=== PATIENT | female | born 1980 | race Caucasian/White ===

== ENCOUNTER → 2016-04-06 | Outpatient (CLI) | payer BC, OTHER ==
--- NOTE | 2016-04-07 01:33 | REP ---
Clinical: thoracic pain. Spondylosis. Technique: AP, lateral, and swimmers views. Findings: Alignment and kyphosis is maintained. Vertebral bodies intact. No acute fracture / compression injury or subluxation. Mild age-related changes are appreciated without overt degenerative changes. Paravertebral soft tissues are normal. Impression: Normal age appropriate thoracic spine series. Signed by Trey Benitez MD 04/07/2016 01:24 A
--- NOTE | 2016-04-07 02:22 | REP ---
Clinical: Spondylosis . Technique: AP, lateral, flexion/extension, bilateral oblique, and open-mouth views. Findings: Alignment and lordosis is maintained. There is no evidence for acute fracture / compression injury or subluxation. No significant degenerative changes are appreciated. Oblique views demonstrate patent neural foramen. Open mouth view demonstrates normal C1-C2 articulation and odontoid process. Impression: Normal cervical spine series. Signed by Trey Benitez MD 04/07/2016 02:13 A
--- NOTE | 2016-04-07 02:27 | REP ---
Clinical: Spondylosis . Technique: AP, lateral, bilateral oblique, and coned-down views. Findings: Alignment and lordosis is maintained. The vertebral bodies including transverse process and spinous processes are intact and normal. There is no evidence for acute fracture / compression injury or subluxation. No evidence for spondylolysis or spondylolisthesis. No significant degenerative change is noted. Impression: Normal lumbosacral spine radiograph series. Signed by Trey Benitez MD 04/07/2016 02:19 A
== END ==
LOC: M RAD 17:36
PROVIDERS: ATTEND Neurological Surgery
DX: M47.894 Other spondylosis, thoracic region (principal)

== ENCOUNTER → 2016-10-16 | Outpatient (CLI) | payer BC, OTHER | LOC: M WUC 17:35 | PROVIDERS: ATTEND Psychiatry & Neurology Neurology | DX: E53.8 Deficiency of other specified B group vitamins (principal) ==

== ENCOUNTER → 2017-07-13 | Outpatient (REF) | payer BC, OTHER ==
[2017-07-13 18:30] LABS: BASO # 0.1 10^3/uL (0.0-0.2); BASO % 0.7 % (0.0-1.0); EOS # 0.1 10^3/uL (0.0-0.50); HEMOGLOBIN 15.1 g/dl (12.0-15.5); IMMATURE GRANULOCYTE % 0.4 % (0-3.0); LYMPH # 2.4 10^3/uL (1.5-4.5); LYMPH % 34.3 % (24.0-44.0); MEAN CORPUSCULAR HEMOGLOBIN 31.9 pg (27.0-33.0); MEAN CORPUSCULAR HGB CONC 35.1 g/dl (32.0-36.5); MEAN CORPUSCULAR VOLUME 90.9 fl (80.0-96.0); MONO # 0.5 10^3/uL (0.0-0.8); MONO % 7.3 % (0.0-5.0); NEUTROPHILS # 3.9 10^3/uL (1.8-7.7); NEUTROPHILS % 55.3 % (36.0-66.0); PLATELET COUNT, AUTOMATED 304 10^3/uL (150-450); RED BLOOD COUNT 4.73 10^6/uL (4.00-5.40); RED CELL DISTRIBUTION WIDTH 11.9 % (11.5-14.5)
[2017-07-13 18:56] LABS: FERRITIN 80 NG/ML (8-252); IRON (FE) 92 UG/DL (50-170); TOTAL IRON BINDING CAPACITY 297 UG/DL (250-450)
== END ==
LOC: M LABNEURO 15:38
DX: D50.9 Iron deficiency anemia, unspecified (principal)
CPT/HCPCS: 83550

== ENCOUNTER → 2017-08-17 | Outpatient (CLI) | payer OTHER, BC ==
[2017-08-17 12:41] LABS: C REACTIVE PROTEIN QUANTITATIV < 0.30 MG/DL (0.00-0.30)
[2017-08-17 12:41] LABS: RHEUMATOID FACTOR QUANT < 10.0 IU/ML (<15.0)
[2017-08-17 12:57] LABS: BASO # 0.1 10^3/uL (0.0-0.2); EOS # 0.1 10^3/uL (0.0-0.50); EOS % 1.3 % (0.0-3.0); HEMATOCRIT 39.4 % (36.0-47.0); HEMOGLOBIN 14.2 g/dl (12.0-15.5); IMMATURE GRANULOCYTE % 0.7 % (0-3.0); LYMPH # 1.8 10^3/uL (1.5-4.5); LYMPH % 25.3 % (24.0-44.0); MEAN CORPUSCULAR HEMOGLOBIN 32.7 pg (27.0-33.0); MEAN CORPUSCULAR VOLUME 90.8 fl (80.0-96.0); MONO # 0.6 10^3/uL (0.0-0.8); MONO % 8.3 % (0.0-5.0); NEUTROPHILS # 4.5 10^3/uL (1.8-7.7); NEUTROPHILS % 63.4 % (36.0-66.0); PLATELET COUNT, AUTOMATED 275 10^3/uL (150-450); RED BLOOD COUNT 4.34 10^6/uL (4.00-5.40); RED CELL DISTRIBUTION WIDTH 11.9 % (11.5-14.5); WHITE BLOOD COUNT 7.1 10^3/uL (4.0-10.0)
[2017-08-17 13:33] LABS: ERYTHROCYTE SEDIMENTATION RATE 12 mm/hr (0-20)
[2017-08-19 00:07] LABS: ANTINUCLEAR ANTIBODIES DIRECT Negative (Negative); Lyme Disease IgG/IgM Antibodie <0.91 ISR (0.00-0.90); Lyme Disease IgM Ab Quantitati <0.80 index (0.00-0.79)
== END ==
LOC: M WUC 09:32
DX: G56.21 Lesion of ulnar nerve, right upper limb (principal)

== ENCOUNTER → 2017-11-19 | Outpatient (CLI) | payer OTHER | LOC: M PAIN 09:30 | DX: M50.20 Other cervical disc displacement, unspecified cervical region (principal); G89.29 Other chronic pain; E03.9 Hypothyroidism, unspecified; G25.81 Restless legs syndrome; K50.90 Crohn's disease, unspecified, without complications; E66.01 Morbid (severe) obesity due to excess calories; Z68.41 Body mass index [BMI] 40.0-44.9, adult; Z79.899 Other long term (current) drug therapy; Z88.8 Allergy status to other drugs, medicaments and biological substances | CPT/HCPCS: G0463 ==

== ENCOUNTER → 2017-12-31 | Outpatient (CLI) | payer BC, OTHER | LOC: M PAIN 08:30 | DX: M50.20 Other cervical disc displacement, unspecified cervical region (principal); E03.9 Hypothyroidism, unspecified; G25.81 Restless legs syndrome; K50.90 Crohn's disease, unspecified, without complications; Z79.899 Other long term (current) drug therapy; Z88.8 Allergy status to other drugs, medicaments and biological substances | CPT/HCPCS: G0463 ==

== ENCOUNTER → 2018-11-29 | Outpatient (CLI) | payer OTHER, BC ==
[2018-11-29 13:31] LABS: FOLATE 18.8 NG/ML
== END ==
LOC: M WUC 11:26
PROVIDERS: ATTEND Psychiatry & Neurology Neurology
DX: E53.8 Deficiency of other specified B group vitamins (principal)

== ENCOUNTER 2018-12-31 11:45 | Emergency (ER) | payer BC, OTHER ==
[~2018-12-31] VITALS: Ht 154.9 cm; Wt 75.9 kg
[2018-12-31] MEDS ORDERED: B-12100021 PO (12:14)
[2018-12-31] MEDS ORDERED: ALL10TAB29 PO (12:14)
[2018-12-31] MEDS ORDERED: NORA0.35 PO (12:14)
[2018-12-31] MEDS ORDERED: LEVO25TA5 PO (12:14)
[2018-12-31] MEDS ORDERED: PROBCAP14 PO (12:14)
[2018-12-31] MEDS ORDERED: CHOL100029 PO (12:14)
[2018-12-31] MEDS ORDERED: GABA-1171 PO (12:14)
[2018-12-31 12:47] LABS: BASO # 0.1 10^3/uL (0.0-0.2); BASO % 0.8 % (0.0-1.0); EOS # 0.1 10^3/uL (0.0-0.5); EOS % 2.2 % (0.0-3.0); HEMATOCRIT 42.7 % (36.0-47.0); HEMOGLOBIN 14.8 g/dl (12.0-15.5); LYMPH # 2.2 10^3/uL (1.5-5.0); LYMPH % 33.7 % (24.0-44.0); MEAN CORPUSCULAR HEMOGLOBIN 32.2 pg (27.0-33.0); MEAN CORPUSCULAR HGB CONC 34.7 g/dl (32.0-36.5); MEAN CORPUSCULAR VOLUME 92.8 fl (80.0-96.0); MONO # 0.5 10^3/uL (0.0-0.8); MONO % 7.3 % (0.0-5.0); NEUTROPHILS # 3.6 10^3/uL (1.5-8.5); NEUTROPHILS % 55.7 % (36.0-66.0); PLATELET COUNT, AUTOMATED 272 10^3/uL (150-450); WHITE BLOOD COUNT 6.5 10^3/uL (4.0-10.0)
[2018-12-31 13:07] LABS: BLOOD UREA NITROGEN 10 MG/DL (7-18); CALCIUM LEVEL 8.9 MG/DL (8.5-10.1); CARBON DIOXIDE LEVEL 28 MEQ/L (21-32); CHLORIDE LEVEL 108 MEQ/L (98-107); GLOMERULAR FILTRATION RATE > 60.0 (>60); GLUCOSE, FASTING 88 MG/DL (70-100); POTASSIUM SERUM 4.6 MEQ/L (3.5-5.1); SODIUM LEVEL 141 MEQ/L (136-145)
--- NOTE | 2018-12-31 13:10 | REP ---
CHEST: Two views. There is no evidence of acute infiltrate. No pleural effusion is seen. The heart is normal in size. The mediastinal silhouette is unremarkable. The visualized osseous structures are intact. IMPRESSION: No acute pulmonary disease. Electronically Signed by Mayco Hill MD 12/31/2018 05:16 P
[2018-12-31] MEDS ORDERED: KETOROLAC 60 MG/2 ML VIAL (J1885) IM ONE (13:30)
[2018-12-31] MEDS ORDERED: NAPR-885 PO (13:53)
[2018-12-31 14:01] VITALS: BP 133/60
== END 2018-12-31 14:03 | disposition home or self-care (01) ==
LOC: M ED 11:45
DX: R07.89 Other chest pain (principal); Z79.899 Other long term (current) drug therapy; Z79.3 Long term (current) use of hormonal contraceptives
CPT/HCPCS: 36415; 71046; 80048; 85025; 85379; 96372; 99284; J1885

== ENCOUNTER → 2020-11-18 | Outpatient (CLI) | payer BC, OTHER ==
[~2020-11-18] MED LIST: B-12100021 PO; CETI-24 PO; CHOL100029 PO; GABA-1171 PO; GLUCAGON INJ 1MG VIAL As Ordered ONE; ISOVUE-370 76% 100ML VIAL As Ordered ONE; LEVO25TA5 PO; NAPR-885 PO; NEULUMEX 0.1% SUSPENSION 450ML BOTTLE (FORMERLY VOLUMEN) As Ordered ONE; NORA0.35 PO; PROBCAP14 PO
--- NOTE | 2020-11-18 10:21 | REP ---
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 Low-dose oral contrast material was administered prior to imaging. Coronal and sagittal reformations were obtained. This CT examination was performed using the following dose reduction techniques: Automated exposure control, adjustment of mA and/or kv according to the patient's size, and use of iterative reconstruction technique. FINDINGS: The enteric system including gastroesophageal junction, stomach, small and large bowel appears normal. The terminal ileum, cecum and appendix in the right lower quadrant are unremarkable. No bowel wall thickening or adjacent fat stranding is appreciated. There is no evidence for diverticulosis. No obvious bowel stricture or mass lesion identified. Liver, spleen, pancreas, gallbladder, bilateral adrenal glands and kidneys are normal. Pelvis demonstrates normal bladder and age-appropriate uterus/adnexa. No ascites. No adenopathy. No free air. Atherosclerotic changes to the aorta and vasculature noted. Musculoskeletal structures demonstrate age-related changes without acute osseous abnormality. Lung bases are clear. IMPRESSION: 1. Normal appearance to the enteric system. 2. No acute abdominopelvic pathology appreciated. <Electronically signed by Trey Benitez > 11/18/20 [id number]
== END ==
LOC: M RAD 08:27
PROVIDERS: ATTEND Internal Medicine Gastroenterology
DX: K50.00 Crohn's disease of small intestine without complications (principal)
CPT/HCPCS: 74177; J1610; Q9967

== ENCOUNTER 2020-12-25 16:39 | Emergency (ER) | payer OTHER, BC ==
[~2020-12-25] VITALS: Ht 152.4 cm; Wt 80.8 kg
[~2020-12-25 16:39] MED LIST changes: -GLUCAGON INJ 1MG VIAL As Ordered ONE; -ISOVUE-370 76% 100ML VIAL As Ordered ONE; -NEULUMEX 0.1% SUSPENSION 450ML BOTTLE (FORMERLY VOLUMEN) As Ordered ONE
[2020-12-25 16:40] VITALS: BP 141/86
--- OUTSIDE RECORDS SUMMARY | 2020-12-25 16:45 | CCD | Continuity of Care Document ---
Author Author Delaney TOMAS Organization Unknown Address [address] [place] [address], it [address] [address] Phone [phone] Care Team Providers Care Box Closing Machine Operator Name Role Phone Fili Jerome MD AUTM [phone] Tavon Fry MD AUTM [phone] Problems Active Problems Provider Date Pain radiating to right arm Tavon Fry MD Onset: Social History Type Date Description Comments Sex Unknown ETOH Use Rarely consumes alcohol Tobacco Use Start: Unknown Denies Smoking Allergies, Adverse Reactions, Alerts Active Allergies Reaction Severity Comments Date Methocarbamol 01/12/2017 Medications Active Medications SIG Qnty Indications Ordering Provide r Date Keke-Be 0.35mg Tablets 1 by mouth every day Unknown Vitamin B 12 100mcg Lozenges Unknown Vitamin D 2000Unit Capsules 1 by mouth a day Unknown Probiotic Capsules 1 by mouth every day Unknown Levothyroxine Sodium 75mcg Tablets 1 by mouth every day Unknown Cetirizine HCL 5mg Chewtabs Unknown Immunizations Description No Information Available Vital Signs Date Vital Result Comment 06/05/2020 4:28pm Body Temperature 97.5 F Height 61 inches 5'1" Weight 178.00 lb BMI (Body Mass Index) 33.6 kg/m2 08/17/2017 8:41am Body Temperature 98.6 F Height 62 inches 5'2" Weight 166.00 lb BMI (Body Mass Index) 30.4 kg/m2 Results Description No Information Available Procedures Date Code Description Status 09/24/2020 99350 MRI Upper Extremity Any Joint Co mpleted 09/18/2020 35454 Office/Outpatient Established Lo w MDM 20-29 Min Completed 08/07/2020 25896 Office/Outpatient Established SF MDM 10-19 Min Completed 06/21/2020 63869 Physical Therapy Eval - Low Comp lexity Completed 06/05/2020 37212 Office/Outpatient Established Mo d MDM 30-39 Min Completed 06/05/2020 72860 X-Ray Hand Three Views Completed 06/05/2020 54653 X-Ray Wrist Complete Completed Medical Devices Description No Information Available Encounters Type Date Location Provider Dx Diagnosis Office Visit 09/18/2020 1:30p [facility] Rodriguez Pitts MD M25.53 1 Pain in right wrist Office Visit 08/07/2020 10:00a [facility] MD M19.03 1 Primary osteoarthritis, right wrist Office Visit 06/05/2020 4:15p [facility] Rodriguez Pitts MD M19.03 1 Primary osteoarthritis, right wrist Assessments Date Code Description Provider 09/24/2020 M25.531 Pain in right wrist Rodriguez trammell MD 09/24/2020 M25.531 Pain in right wrist MRI 09/18/2020 M25.531 Pain in right wrist Rodriguez trammell MD 08/07/2020 M19.031 Primary osteoarthritis, right wr ist Rodriguez Pitts MD 06/21/2020 M19.031 Primary osteoarthritis, right wr ist Reji King PT, DPT 06/06/2020 M19.031 Primary osteoarthritis, right wr ist Rodriguez Pitts MD 06/05/2020 M19.031 Primary osteoarthritis, right wr ist Rodriguez Pitts MD Plan of Treatment Future Appointment(s):* 10/14/2020 3:15 pm - Thaddeus Swenson PA-C at [facility] 09/18/2020 - Rodriguez Pitts MD* M25.531 Pain in right wrist Functional Status Description No Information Available Mental Status Description No Information Available Referrals Refer to Dr Reason for Referral Status Appt Rodriguez Pitts MD MRI APPROVED PER [facility] FOR MRI OF RIGHT WRIST (66931) TO MRI. DG Created [address], [address] [place] [address] [phone] Rodriguez Pitts MD PT BASED ON MED. [facility] TO PT DEPT. KATIA bowling [address], [facility] [address] [place] [address] [phone]
--- OUTSIDE RECORDS SUMMARY | 2020-12-25 16:45 | CCD | Continuity of Care Document ---
Author Author Delaney SWENSON PA-Hardy Organization Unknown Address [address] [place] [address] Phone [phone] Care Team Providers Care Security Developer Name Role Phone Fili Jerome MD AUTM [phone] Tavon Fry MD AUTM [phone] Problems Active Problems Provider Date Pain radiating to right arm Tavon Fry MD Onset: Social History Type Date Description Comments Sex Unknown ETOH Use Rarely consumes alcohol Tobacco Use Start: Unknown Denies Smoking Allergies, Adverse Reactions, Alerts Active Allergies Criticality Reaction | Severity Comments Date Methocarbamol Unable to assess criticality 01/12/2017 Medications Active Medications SIG Qnty Indications [...] Information Available Procedures Date Code Description Status 10/14/2020 09499 Office/Outpatient Established Lo w MDM 20-29 Min Completed 09/24/2020 44896 MRI Upper Extremity Any Joint Co mpleted 09/18/2020 24560 Office/Outpatient Established Lo w MDM 20-29 Min Completed 08/07/2020 11602 Office/Outpatient Established SF MDM 10-19 Min Completed 06/21/2020 65106 Physical Therapy Eval - Low Comp lexity Completed 06/05/2020 83408 Office/Outpatient Established Mo d MDM 30-39 Min Completed 06/05/2020 43855 X-Ray Hand Three Views Completed 06/05/2020 98002 X-Ray Wrist Complete Completed Medical Devices Description No Information Available Encounters Type Date Location Provider Dx Diagnosis Office Visit 10/14/2020 3:15p Zacarias Swenson PA-C M2 5.531 Pain in right wrist Office Visit 09/18/2020 1:30p Zacarias Pitts MD M25.53 1 Pain in right wrist Office Visit 08/07/2020 10:00a Zacarias Pitts MD M19.03 1 Primary osteoarthritis, right wrist Office Visit 06/05/2020 4:15p Zacarias Pitts MD M19.03 1 Primary osteoarthritis, right wrist Assessments Date Code Description Provider 10/14/2020 M25.531 Pain in right wrist Thaddeus aguilar PA-C 09/24/2020 M25.531 Pain in right wrist Rodriguez trammell MD 09/24/2020 M25.531 Pain in right wrist MRI 09/18/2020 M25.531 Pain in right wrist Rodriguez trammell MD 08/07/2020 M19.031 Primary osteoarthritis, right wr ist Rodriguez Pitts MD 06/21/2020 M19.031 Primary osteoarthritis, right wr ist Reji King, PT, DPT 06/06/2020 M19.031 Primary osteoarthritis, right wr ist Rodriguez Pitts MD 06/05/2020 M19.031 Primary osteoarthritis, right wr ist Rodriguez Pitts MD Plan of Treatment 10/14/2020 - Thaddeus Swenson PA-C* M25.531 Pain in right wrist* New Orders: * Referral, Ordered: 10/14/20 * Follow up:* after patient see's Dr. Crump at [facility] for Rt. wrist amaury with BMS. Functional Status Description No Information Available Mental Status Description No Information Available Referrals Refer to Reason for Referral Status Appt Date Rodriguez Pitts MD MRI APPROVED PER [facility] FOR MRI OF RIGHT WRIST ([id number]) TO MRI. DG Created [address] [address] [phone] Rodriguez Pitts MD PT BASED ON MED. [facility] TO PT DEPT. NT [employer]a dash [address] [address] [phone]
--- OUTSIDE RECORDS SUMMARY | 2020-12-25 16:45 | CCD ---
Author Author [facility] Organization [facility] Address Unknown Phone Unavailable Care Team Providers Care Pressure Washer Name Role Phone Emilee MENDOZA MD Unavailable Unavailable Emilee MENDOZA MD Unavailable Unavailable Emilee MENDOZA MD Unavailable Unavailable Emilee MENDOZA MD Unavailable Unavailable Emilee MENDOZA MD Unavailable Unavailable Emilee MENDOZA MD Unavailable Unavailable Emilee MENDOZA MD Unavailable Unavailable Emilee MENDOZA MD Unavailable Unavailable Emilee MENDOZA MD Unavailable Unavailable Emilee MENDOZA MD Unavailable Unavailable Emilee MENDOZA MD Unavailable Unavailable Emilee MENDOZA MD Unavailable Unavailable Emilee MENDOZA MD Unavailable Unavailable Emilee MENDOZA MD Unavailable Unavailable Emilee MENDOZA MD Unavailable Unavailable Emilee MENDOZA MD Unavailable Unavailable Emilee MENDOZA MD Unavailable Unavailable Emilee MENDOZA MD Unavailable Unavailable Emilee MENDOZA MD Unavailable Unavailable Emilee MENDOZA MD Unavailable Unavailable Emilee MENDOZA MD Unavailable Unavailable Emilee MENDOZA MD Unavailable Unavailable Emilee MENDOZA MD Unavailable Unavailable Emilee MENDOZA MD Unavailable Unavailable Emilee MENDOZA MD Unavailable Unavailable Emilee MENDOZA MD Unavailable Unavailable Emilee MENDOZA MD Unavailable Unavailable Emilee MENDOZA MD Unavailable Unavailable Emilee MENDOZA MD Unavailable Unavailable Emilee MENDOZA MD Unavailable Unavailable Emilee MENDOZA MD Unavailable Unavailable Emilee MENDOZA MD Unavailable Unavailable Emilee MENDOZA MD Unavailable Unavailable Emilee MENDOZA MD Unavailable Unavailable Emilee MENDOZA MD Unavailable Unavailable Emilee MENDOZA MD Unavailable Unavailable Emilee MENDOZA MD Unavailable Unavailable Emilee MENDOZA MD Unavailable Unavailable Emilee MENDOZA MD Unavailable Unavailable Emilee MENDOZA MD Unavailable Unavailable Emilee MENDOZA MD Unavailable Unavailable Emilee MENDOZA MD Unavailable Unavailable Emilee MENDOZA MD Unavailable Unavailable Emilee MENDOZA MD Unavailable Unavailable Emilee MENDOZA MD Unavailable Unavailable Emilee MENDOZA MD Unavailable Unavailable Emilee MENDOZA MD Unavailable Unavailable Emilee MENDOZA MD Unavailable Unavailable Emilee MENDOZA MD Unavailable Unavailable Emilee MENDOZA MD Unavailable Unavailable Emilee MENDOZA MD Unavailable Unavailable Emilee MENDOZA MD Unavailable Unavailable Emilee MENDOZA MD Unavailable Unavailable Emilee MENDOZA MD Unavailable Unavailable Emilee MENDOZA MD Unavailable Unavailable Emilee MENDOZA MD Unavailable Unavailable Emilee MENDOZA MD Unavailable Unavailable Emilee MENDOZA MD Unavailable Unavailable Emilee MENDOZA MD Unavailable Unavailable Emilee MENDOZA MD Unavailable Unavailable Emilee MENDOZA MD Unavailable Unavailable Emilee MENDOZA MD Unavailable Unavailable Emilee MENDOZA MD Unavailable Unavailable Emilee MENDOZA MD Unavailable Unavailable Emilee MENDOZA MD Unavailable Unavailable Emilee MENDOZA MD Unavailable Unavailable Emilee MENDOZA MD Unavailable Unavailable Emilee MENDOZA MD Unavailable Unavailable Emilee MENDOZA MD Unavailable Unavailable Emilee MENDOZA MD Unavailable Unavailable Emilee MENDOZA MD Unavailable Unavailable Emilee MENDOZA MD Unavailable Unavailable Emilee MENDOZA MD Unavailable Unavailable Emilee MENDOZA MD Unavailable Unavailable Emilee MENDOZA MD Unavailable Unavailable Emilee MENDOZA MD Unavailable Unavailable Jasmeet Pitts MD Unavailable Unavailable Jasmeet Pitts MD Unavailable Unavailable Jasmeet Pitts MD Unavailable Unavailable Jasmeet Pitts MD Unavailable Unavailable Jasmeet Pitts MD Unavailable Unavailable Jasmeet Pitts MD Unavailable Unavailable Jasmeet Pitts MD Unavailable Unavailable Jasmeet Pitts MD Unavailable Unavailable Jasmeet Pitts MD Unavailable Unavailable Jasmeet Pitts MD Unavailable Unavailable Jasmeet Pitts MD Unavailable Unavailable Mandappa, Mely CASAC Unavailable Unavailable Mandappa, Mely CASAC Unavailable Unavailable Mandappa, Mely CASAC Unavailable Unavailable Mandappa, Mely CASAC Unavailable Unavailable Emilee MENDOZA MD Unavailable Unavailable Emilee MENDOZA MD Unavailable Unavailable Emilee MENDOZA MD Unavailable Unavailable Emilee MENDOZA MD Unavailable Unavailable Emilee MENDOZA MD Unavailable Unavailable Emilee MENDOZA MD Unavailable Unavailable Emilee MENDOZA MD Unavailable Unavailable Emilee MENDOZA MD Unavailable Unavailable Emilee MENDOZA MD Unavailable Unavailable Emilee MENDOZA MD Unavailable Unavailable Emilee MENDOZA MD Unavailable Unavailable Emilee MENDOZA MD Unavailable Unavailable Emilee MENDOZA MD Unavailable Unavailable Emilee MENDOZA MD Unavailable Unavailable Emilee MENDOZA MD Unavailable Unavailable Emilee MENDOZA MD Unavailable Unavailable Emilee MENDOZA MD Unavailable Unavailable Emilee MENDOZA MD Unavailable Unavailable Emilee MENDOZA MD Unavailable Unavailable Emilee MENDOZA MD Unavailable Unavailable Emilee MENDOZA MD Unavailable Unavailable Emilee MENDOZA MD Unavailable Unavailable Emilee MENDOZA MD Unavailable Unavailable Emilee MENDOZA MD Unavailable Unavailable Emilee MENDOZA MD Unavailable Unavailable Emilee MENDOZA MD Unavailable Unavailable Emilee MENDOZA MD Unavailable Unavailable Emilee MENDOZA MD Unavailable Unavailable Emilee MENDOZA MD Unavailable Unavailable Emilee MENDOZA MD Unavailable Unavailable Emilee MENDOAZ MD Unavailable Unavailable Emilee MENDOZA MD Unavailable Unavailable Emilee MENDOZA MD Unavailable Unavailable Emilee MENDOZA MD Unavailable Unavailable Emilee MENDOZA MD Unavailable Unavailable Emilee MENDOZA MD Unavailable Unavailable Emilee MENDOZA MD Unavailable Unavailable Emilee MENDOZA MD Unavailable Unavailable Emilee MENDOZA MD Unavailable Unavailable Emilee MENDOZA MD Unavailable Unavailable Emilee MENDOZA MD Unavailable Unavailable Emilee MENDOZA MD Unavailable Unavailable Emilee MENDOZA MD Unavailable Unavailable Emilee MENDOZA MD Unavailable Unavailable Emilee MENDOZA MD Unavailable Unavailable Emilee MENDOZA MD Unavailable Unavailable Emilee MENDOZA MD Unavailable Unavailable Emilee MENDOZA MD Unavailable Unavailable Emilee MENDOZA MD Unavailable Unavailable Emilee MENDOZA MD Unavailable Unavailable Emilee MENDOZA MD Unavailable Unavailable Emilee MENDOZA MD Unavailable Unavailable Emilee MENDOZA MD Unavailable Unavailable Emilee MENDOZA MD Unavailable Unavailable Emilee MENDOZA MD Unavailable Unavailable Emilee MENDOZA MD Unavailable Unavailable Emilee MENDOZA MD Unavailable Unavailable Emilee MENDOZA MD Unavailable Unavailable Emilee MENDOZA MD Unavailable Unavailable Emilee MENDOZA MD Unavailable Unavailable Emilee MENDOZA MD Unavailable Unavailable Emilee MENDOZA MD Unavailable Unavailable Emilee MENDOZA MD Unavailable Unavailable Emilee MENDOZA MD Unavailable Unavailable Emilee MENDOZA MD Unavailable Unavailable Emilee MENDOZA MD Unavailable Unavailable Emilee MENDOZA MD Unavailable Unavailable Emilee MENDOZA MD Unavailable Unavailable Emilee MENDOZA MD Unavailable Unavailable Emilee MENDOZA MD Unavailable Unavailable Emilee MENDOZA MD Unavailable Unavailable Emilee MENDOZA MD Unavailable Unavailable Emilee MENDOZA MD Unavailable Unavailable Emilee MENDOZA MD Unavailable Unavailable Emilee MENDOZA MD Unavailable Unavailable Emilee MENDOZA MD Unavailable Unavailable Mani Swenson PA Unavailable Unavailable Mani Swenson PA Unavailable Unavailable Swenson, M Barratt PA Unavailable Unavailable Swenson, M Barratt PA Unavailable Unavailable Swenson, M Barratt PA Unavailable Unavailable Swenson, M Barratt PA Unavailable Unavailable Swenson, M Barratt PA Unavailable Unavailable Swenson, M Barratt PA Unavailable Unavailable Swenson, M Barratt PA Unavailable Unavailable Swenson, M Barratt PA Unavailable Unavailable Swenson, M Barratt PA Unavailable Unavailable Swenson, M Barratt PA Unavailable Unavailable Swenson, M Barratt PA Unavailable Unavailable Swenson, M Barratt PA Unavailable Unavailable Swenson, M Barratt PA Unavailable Unavailable Swenson, M Barratt PA Unavailable Unavailable Swenson, M Barratt PA Unavailable Unavailable Swenson, M Barratt PA Unavailable Unavailable Swenson, M Barratt PA Unavailable Unavailable Swenson, M Barratt PA Unavailable Unavailable Swenson, M Barratt PA Unavailable Unavailable Swenson, M Barratt PA Unavailable Unavailable Swenson, M Barratt PA Unavailable Unavailable Swenson, M Barratt PA Unavailable Unavailable Swenson, M Barratt PA Unavailable Unavailable Swenson, M Barratt PA Unavailable Unavailable Swenson, M Barratt PA Unavailable Unavailable Swenson, M Barratt PA Unavailable Unavailable Swenson, M Barratt PA Unavailable Unavailable MYRA B AXEL WALDRON Unavailable Unavailable MYRA B AXEL WALDRON Unavailable Unavailable MYRAGwen MD Unavailable Unavailable MYRAGwen MD Unavailable Unavailable MYRA, Gwen REYNA MD Unavailable Unavailable MYRA B AXEL WALDRON Unavailable Unavailable MYRAGwen MD Unavailable Unavailable MYRAGwen HASTINGS MD Unavailable Unavailable MYRAGwen HASTINGS MD Unavailable Unavailable MYRAGwen HASTINGS MD Unavailable Unavailable MYRAGwen MD Unavailable Unavailable MYRAGwen HASTINGS MD Unavailable Unavailable MYRAGwen MD Unavailable Unavailable MYRAGwen MD Unavailable Unavailable MYRAGewn HASTINGS MD Unavailable Unavailable MYRAGwen HASTINGS MD Unavailable Unavailable MYRAGwen MD Unavailable Unavailable MYRAGwen MD Unavailable Unavailable MYRA B AXEL WALDRON Unavailable Unavailable MYRAGwen MD Unavailable Unavailable MYRAGwen HASTINGS MD Unavailable Unavailable MYRAGwen HASTINGS MD Unavailable Unavailable MYRAGwen HASTINGS MD Unavailable Unavailable MYRA, Gwen REYNA MD Unavailable Unavailable MYRA, B AXEL WALDRON Unavailable Unavailable MYRA, B AXEL WALDRON Unavailable Unavailable MYRA, Gwen REYNA MD Unavailable Unavailable MYRA, Gwen REYNA MD Unavailable Unavailable MYRA, Gwen REYNA MD Unavailable Unavailable MYRA, Gwen REYNA MD Unavailable Unavailable MYRA, Gwen REYNA MD Unavailable Unavailable MYRA, Gwen REYNA MD Unavailable Unavailable MYAR, Gwen REYNA MD Unavailable Unavailable MYRA, Gwen REYNA MD Unavailable Unavailable MYRA, Gwen REYNA MD Unavailable Unavailable MYRA, Gwen REYNA MD Unavailable Unavailable MYRA, Gwen REYNA MD Unavailable Unavailable MYRA, Gwen REYNA MD Unavailable Unavailable MYRA, Gwen REYNA MD Unavailable Unavailable MYRA, Gwen REYNA MD Unavailable Unavailable MYRA, Gwen REYNA MD Unavailable Unavailable MYRA, Gwen REYNA MD Unavailable Unavailable MYRA, Gwen REYNA MD Unavailable Unavailable MYRA, Gwen REYNA MD Unavailable Unavailable MYRA, Gwen REYNA MD Unavailable Unavailable MYRA, Gwen REYNA MD Unavailable Unavailable MYRA, Gwen REYNA MD Unavailable Unavailable MYRA, Gwen REYNA MD Unavailable Unavailable MYRA, Gwen REYNA MD Unavailable Unavailable MYRA, Gwen REYNA MD Unavailable Unavailable MYRA, Gwen REYNA MD Unavailable Unavailable MYRA, Gwen REYNA MD Unavailable Unavailable MYRA, Gwen REYNA MD Unavailable Unavailable MYRA, Gwen REYNA MD Unavailable Unavailable MYRA, Gwen REYNA MD Unavailable Unavailable MYRA, Gwen REYNA MD Unavailable Unavailable MYRA, Gwen REYNA MD Unavailable Unavailable MYRA, Gwen REYNA MD Unavailable Unavailable MYRA, Gwen REYNA MD Unavailable Unavailable MYRA, Gwen REYNA MD Unavailable Unavailable MYRA, Gwen REYNA MD Unavailable Unavailable MYRA, Gwen REYNA MD Unavailable Unavailable MYRA, Gwen REYNA MD Unavailable Unavailable MYRA, Gwen REYNA MD Unavailable Unavailable MYRA, Gwen REYNA MD Unavailable Unavailable MYRA, Gwen REYNA MD Unavailable Unavailable MYRA, Gwen REYNA MD Unavailable Unavailable MYRA, Gwen REYNA MD Unavailable Unavailable MYRA, Gwen REYNA MD Unavailable Unavailable MYRA, Gwen REYNA MD Unavailable Unavailable MYRA, Gwen REYNA MD Unavailable Unavailable MYRA, wGen REYNA MD Unavailable Unavailable MYRA, Gwen REYNA MD Unavailable Unavailable MYRA, Gwen REYNA MD Unavailable Unavailable MYRA, Gwen REYNA MD Unavailable Unavailable MYRA, Gwen REYNA MD Unavailable Unavailable MYRA, Gwen REYNA MD Unavailable Unavailable MYRA, Gwen REYNA MD Unavailable Unavailable MRYA, B AXEL WALDRON Unavailable Unavailable MYRA, B AXEL WALDRON Unavailable Unavailable MYRA, B AXEL WALDRON Unavailable Unavailable MYRA, B AXEL WALDRON Unavailable Unavailable MYRA, B AXEL WALDRON Unavailable Unavailable MYRA, B AXEL WALDRON Unavailable Unavailable MYRA, B AXEL WALDRON Unavailable Unavailable MYRA, B AXEL WALDRON Unavailable Unavailable MYRA, B AXEL WALDRON Unavailable Unavailable MYRA, B AXEL WALDRON Unavailable Unavailable Jasmeet Pitts MD Unavailable Unavailable Jasmeet Pitts MD Unavailable Unavailable Jasmeet Pitts MD Unavailable Unavailable Jasmeet Pitts MD Unavailable Unavailable Jasmeet Pitts MD Unavailable Unavailable Jasmeet Pitts MD Unavailable Unavailable Jasmeet Pitts MD Unavailable Unavailable Jasmeet Pitts MD Unavailable Unavailable Jasmeet Pitts MD Unavailable Unavailable Jasmeet Pitts MD Unavailable Unavailable Jasmeet Pitts MD Unavailable Unavailable Malou Fry MD Unavailable Unavailable Malou Fry MD Unavailable Unavailable Malou Fry MD Unavailable Unavailable Malou Fry MD Unavailable Unavailable Malou Fry MD Unavailable Unavailable Malou Fry MD Unavailable Unavailable Malou Fry MD Unavailable Unavailable Malou Fry MD Unavailable Unavailable Malou Fry MD Unavailable Unavailable Malou Fry MD Unavailable Unavailable Malou Fry MD Unavailable Unavailable Malou Fry MD Unavailable Unavailable Malou Fry MD Unavailable Unavailable Malou Fry MD Unavailable Unavailable Malou Fry MD Unavailable Unavailable Malou Fry MD Unavailable Unavailable Malou Fry MD Unavailable Unavailable Malou Fry MD Unavailable Unavailable Malou Fry MD Unavailable Unavailable Malou Fry MD Unavailable Unavailable Malou Fry MD Unavailable Unavailable Malou Fry MD Unavailable Unavailable Malou Fry MD Unavailable Unavailable Malou Fry MD Unavailable Unavailable Malou Fry MD Unavailable Unavailable Malou Fry MD Unavailable Unavailable Malou Fry MD Unavailable Unavailable Malou Fry MD Unavailable Unavailable Malou Fry MD Unavailable Unavailable Malou Fry MD Unavailable Unavailable Malou Fry MD Unavailable Unavailable Malou Fry MD Unavailable Unavailable Malou Fry MD Unavailable Unavailable Malou Fry MD Unavailable Unavailable Malou Fry MD Unavailable Unavailable Malou Fry MD Unavailable Unavailable Malou Fry MD Unavailable Unavailable Malou Fry MD Unavailable Unavailable Malou Fry MD Unavailable Unavailable Malou Fry MD Unavailable Unavailable Malou Fry MD Unavailable Unavailable Malou Fry MD Unavailable Unavailable Malou Fry MD Unavailable Unavailable Malou Fry MD Unavailable Unavailable Malou Fry MD Unavailable Unavailable Malou Fry MD Unavailable Unavailable Malou Fry MD Unavailable Unavailable Malou Fry MD Unavailable Unavailable Malou Fry MD Unavailable Unavailable Malou Fry MD Unavailable Unavailable Malou Fry MD Unavailable Unavailable Malou Fry MD Unavailable Unavailable Malou Fry MD Unavailable Unavailable Malou Fry MD Unavailable Unavailable Malou Fry MD Unavailable Unavailable Malou Fry MD Unavailable Unavailable Malou Fry MD Unavailable Unavailable Malou Fry MD Unavailable Unavailable Malou Fry MD Unavailable Unavailable Malou Fry MD Unavailable Unavailable Malou Fry MD Unavailable Unavailable Malou Fry MD Unavailable Unavailable Malou Fry MD Unavailable Unavailable Malou Fry MD Unavailable Unavailable Malou Fry MD Unavailable Unavailable Malou Fry MD Unavailable Unavailable Malou Fry MD Unavailable Unavailable Malou Fry MD Unavailable Unavailable Malou Fry MD Unavailable Unavailable Malou Fry MD Unavailable Unavailable Malou Fry MD Unavailable Unavailable Malou Fry MD Unavailable Unavailable Lisandra, O Samah MD Unavailable Unavailable Lisandra, O Samah MD Unavailable Unavailable Lisandra, O Samah MD Unavailable Unavailable Lisandra, O Samah MD Unavailable Unavailable Lisandra, O Samah MD Unavailable Unavailable Lisandra, O Samah MD Unavailable Unavailable Lisandra, O Samah MD Unavailable Unavailable Re-disclosure Warning The records that you are about to access may contain information from federally-assisted alcohol or drug abuse programs. If such information is present, then the following federally mandated warning applies: This information has been disclosed to you from records protected by federal confidentiality rules (42 CFR part 2). The federal rules prohibit you from making any further disclosure of this information unless further disclosure is expressly permitted by the written consent of the person to whom it pertains or as otherwise permitted by 42 CFR part 2. A general authorization for the release of medical or other information is NOT sufficient for this purpose. The Federal rules restrict any use of the information to criminally investigate or prosecute any alcohol or drug abuse patient.The records that you are about to access may contain highly sensitive health information, the redisclosure of which is protected by Article 27-F of the [facility] Public Health law. If you continue you may have access to information: Regarding HIV / AIDS; Provided by facilities licensed or operated by the [facility] Office of Mental Health; or Provided by the [facility] Office for People With Developmental Disabilities. If such information is present, then the following [facility] mandated warning applies: This information has been disclosed to you from confidential records which are protected by state law. State law prohibits you from making any further disclosure of this information without the specific written consent of the person to whom it pertains, or as otherwise permitted by law. Any unauthorized further disclosure in violation of state law may result in a fine or usp sentence or both. A general authorization for the release of medical or other information is NOT sufficient authorization for further disc losure. Allergies and Adverse Reactions Type Description Substance Reaction Status Data Source(s ) Propensity to adverse reactions NO KNOWN ALLERGIES NO KNOWN ALLERGIES [facility] Family History Family Member Name Family Member Gender Family Member Status Date o f Status Description Data Source(s) Unknown Male Problem [facility] ([facility] ) Unknown Unknown Problem [facility] ([facility], ) maternal GM age late 50s Unknown Unknown Problem [facility] ([facility]) Encounters Encounter Providers Location Date Indications Data Source(s ) Outpatient Attender: AXEL RENTERIA MDReferrer: Rodriguez Pitts MD [id number] 12/06/2020 12:00:00 AM EDT [facility] Office Visit Attender: Tavon Fry MD [facility] 11/19/2020 11:15:00 AM EDT [facility] ([facility]) Recurring Patient Referrer: RAFI MENDOZA MD 10/25/2020 0 3:03:02 PM EDT [facility] Recurring Patient Referrer: Mely Daniel CASAC 10/25/2020 02:14:36 PM EDT [facility] OFFICE OUTPATIENT VISIT 15 MINUTES Attender: Thaddeus VELA [facility] 10/14/2020 03:15:00 PM EDT [facility] ([facility]) OFFICE OUTPATIENT VISIT 15 MINUTES Attender: Rodriguez Pitts MD [facility] 09/18/2020 01:30:00 PM EDT [facility] ([facility]) Outpatient Attender: RAFI MENDOZA MD [place] [facility] 04/2020 11:30:00 AM EDT [facility] ([facility] Outpatient Attender: Rodriguez Pitts MD Physical Therapy 04/2020 10:00:00 AM EDT [facility] ([facility]) Outpatient Attender: Rodriguez Pitts MD [facility] 04:15:00 PM EDT [facility] ([facility]) Office Visit Attender: Tavon Fry MD [facility] 05/16/2020 01:45:00 PM EST [facility] ([facility] Office Visit Attender: Tavon Fry MD [facility] 01/15/2020 01:30:00 PM EST [facility] ([facility] Immunizations Vaccine Date Status Description Data Source(s) COVID-19 VACCINE Moderna 06/27/2020 12:00:00 AM EDT completed [facility] Vaccine Series Complete: YESThis Data wa s Submitted to [facility] Via [employer]. COVID-19 VACCINE Moderna 05/30/2020 12:00:00 AM EDT completed [facility] Vaccine Series Complete: NOThis Data was Submitted to [facility] Via [employer]. Medications Medication Brand Name Start Date Product Form Dose Route Admi nistrative Instructions Pharmacy Instructions Status Indications Reaction Description Data Source(s) 1 % 12/18/2020 12:00:00 AM EDT lotion 60 APPLY TO AFFECTED AREA(S) ONCE DAILY UNTIL CONTROLLED/ RESOLVED APPLY TO AFFECTED AREA(S) ONCE DAILY UNT [place] CONTROLLED/ RESOLVED SOLD: 12/20/2020 [facility] 100 mg 11/19/2020 12:00:00 AM EDT capsule 60 TAKE TWO CAPSULES BY MOUTH EVERY DAY AT SUPPER TIME TAKE TWO CAPSULES BY MOUTH EVERY DAY AT SUPPER TIME SOLD: 11/28/2020 [facility] 400 mg/5 mL 10/31/2020 12:00:00 AM EDT suspension 355 TAKE 60ML BY MOUTH DIRECTED ON COLONOSCOPY PREP SHEET TAKE 60ML BY MOUTH DIRECTED ON COLONO SCOPY PREP SHEET SOLD: 11/08/2020 [facility] 25 mcg 09/16/2020 12:00:00 AM EDT tablet 90 TAKE ONE TABLET BY MOUTH EVERY DAY TAKE ONE TABLET BY MOUTH EVERY DAY SOLD: 12/20/2020 [facility] 25 mcg 09/16/2020 12:00:00 AM EDT tablet 90 TAKE ONE TABLET BY MOUTH EVERY DAY TAKE ONE TABLET BY MOUTH EVERY DAY SOLD: 09/18/2020 [facility] 100 mg 08/22/2020 12:00:00 AM EDT capsule 60 TAKE TWO CAPSULES BY MOUTH EVERY DAY AT SUPPERTIME TAKE TWO CAPSULES BY MOUTH EVERY DAY AT SUPPERTIME WIN [facility] 100 mg 08/22/2020 12:00:00 AM EDT capsule 60 TAKE TWO CAPSULES BY MOUTH EVERY DAY AT SUPPERTIME TAKE TWO CAPSULES BY MOUTH EVERY DAY AT SUPPERTIME WIN [facility] 100 mg 08/22/2020 12:00:00 AM EDT capsule 60 TAKE TWO CAPSULES BY MOUTH EVERY DAY AT SUPPERTIME TAKE TWO CAPSULES BY MOUTH EVERY DAY AT SUPPERTIME WIN [facility] 100 mg 08/22/2020 12:00:00 AM EDT capsule 60 TAKE TWO CAPSULES BY MOUTH EVERY DAY AT SUPPERTIME TAKE TWO CAPSULES BY MOUTH EVERY DAY AT SUPPERTIME WIN [facility] 25 mcg 08/14/2020 12:00:00 AM EDT tablet 30 TAKE ONE TABLET BY MOUTH EVERY DAY TAKE ONE TABLET BY MOUTH EVERY DAY SOLD: 08/22/2020 [facility] 25 mcg 07/22/2020 12:00:00 AM EDT tablet 30 TAKE ONE TABLET BY MOUTH EVERY DAY TAKE ONE TABLET BY MOUTH EVERY DAY SOLD: 07/31/2020 [facility] 100 mg 04/23/2020 12:00:00 AM EST capsule 60 TAKE TWO CAPSULES BY MOUTH EVERY DAY AT SUPPERTIME TAKE TWO CAPSULES BY MOUTH EVERY DAY AT SUPPERTIME WIN [facility] 100 mg 04/23/2020 12:00:00 AM EST capsule 60 TAKE TWO CAPSULES BY MOUTH EVERY DAY AT SUPPERTIME TAKE TWO CAPSULES BY MOUTH EVERY DAY AT SUPPERTIME WIN [facility] 100 mg 04/23/2020 12:00:00 AM EST capsule 60 TAKE TWO CAPSULES BY MOUTH EVERY DAY AT SUPPERTIME TAKE TWO CAPSULES BY MOUTH EVERY DAY AT SUPPERTIME WIN [facility] 100 mg 04/23/2020 12:00:00 AM EST capsule 60 TAKE TWO CAPSULES BY MOUTH EVERY DAY AT SUPPERTIME TAKE TWO CAPSULES BY MOUTH EVERY DAY AT SUPPERTIME WIN [facility] 0.35 mg 03/31/2020 12:00:00 AM EST tablet 84 TAKE ONE TABLET BY MOUTH EVERY DAY TAKE ONE TABLET BY MOUTH EVERY DAY SOLD: 04/04/2020 [facility] 0.35 mg 03/31/2020 12:00:00 AM EST tablet 84 TAKE ONE TABLET BY MOUTH EVERY DAY TAKE ONE TABLET BY MOUTH EVERY DAY SOLD: 12/06/2020 [facility] 0.35 mg 03/31/2020 12:00:00 AM EST tablet 84 TAKE ONE TABLET BY MOUTH EVERY DAY TAKE ONE TABLET BY MOUTH EVERY DAY SOLD: 09/13/2020 [facility] 0.35 mg 03/31/2020 12:00:00 AM EST tablet 84 TAKE ONE TABLET BY MOUTH EVERY DAY TAKE ONE TABLET BY MOUTH EVERY DAY SOLD: 06/19/2020 [facility] 0.35 mg 03/10/2020 12:00:00 AM EST tablet 28 TAKE ONE TABLET BY MOUTH EVERY DAY TAKE ONE TABLET BY MOUTH EVERY DAY SOLD: 03/10/2020 [facility] 100 mg 12/14/2019 12:00:00 AM EDT capsule 60 TAKE 2 CAPSULES BY MOUTH AT SUPPERTIME TAKE 2 CAPSULES BY MOUTH AT SUPPERTIME SOLD: 03/10/2020 [facility] 100 mg 12/14/2019 12:00:00 AM EDT capsule 60 TAKE 2 CAPSULES BY MOUTH AT SUPPERTIME TAKE 2 CAPSULES BY MOUTH AT SUPPERTIME SOLD: 12/16/2019 [facility] 100 mg 12/14/2019 12:00:00 AM EDT capsule 60 TAKE 2 CAPSULES BY MOUTH AT SUPPERTIME TAKE 2 CAPSULES BY MOUTH AT SUPPERTIME SOLD: 01/17/2020 [facility] 100 mg 08/03/2019 12:00:00 AM EDT capsule 60 TAKE 2 CAPSULES BY MOUTH AT SUPPERTIME TAKE 2 CAPSULES BY MOUTH AT SUPPERTIME SOLD: 11/09/2019 [facility] 25 mcg 07/25/2019 12:00:00 AM EDT tablet 90 TAKE ONE TABLET BY MOUTH EVERY DAY TAKE ONE TABLET BY MOUTH EVERY DAY SOLD: 01/24/2020 [facility] 25 mcg 07/25/2019 12:00:00 AM EDT tablet 90 TAKE ONE TABLET BY MOUTH EVERY DAY TAKE ONE TABLET BY MOUTH EVERY DAY SOLD: 10/30/2019 [facility] 25 mcg 07/25/2019 12:00:00 AM EDT tablet 90 TAKE ONE TABLET BY MOUTH EVERY DAY TAKE ONE TABLET BY MOUTH EVERY DAY SOLD: 04/25/2020 [facility] 0.35 mg 03/29/2019 12:00:00 AM EST tablet 84 TAKE ONE TABLET BY MOUTH EVERY DAY TAKE ONE TABLET BY MOUTH EVERY DAY SOLD: 12/12/2019 [facility] Insurance Providers Payer name Policy type / Coverage type Policy ID Covered green party ID Covered green party's relationship to townsend Policy Townsend Plan Information [facility] Health Maintenance Organization (O) [id number] Self [id number] [employer] PLAN [facility] U [id number] Self [id number] [facility] [id number] Self [id number] Workers Compensation Workers Compensation [id number] Self Workers Compensation Workers Compensation [id number] Self [facility] [id number] SP [id number] BC[employer] [id number] SP [id number] [facility] Health Maintenance Organization (O) [id number] Self [id number] [facility] Health Maintenance Organization (O) [id number] Self [id number] [employer] Med[employer] Part B [id number] Self [id number] [facility] ([facility]) O [id number] S [id number] SELF PAY UNAVAILABLE SP UNAVAILA BLE [facility] Health Maintenance Organization (O) [id number] Self SELF PAY P [id number] S [employer] Medigap Part B [id number] Self [employer] Commercial [id number] Self [employer] [id number] SP [id number] [employer] [id number] SP [id number] [employer] [id number] SP [id number] UNITED HE[employer]CARE [id number] SP [id number] BCBS [employer] DIV [id number] SP [id number] [place] Plan F [id number] SELF [id number] UNITED HE[employer]CARE [id number] SP [id number] BCBS [place] [employer] DIV [id number] SP [id number] ANSI-Commercial [id number] ANSI-Commercial [id number] UNITED [employer] O [id number] S [id number] [facility] [place] Medigap Part B [id number] Self [id number] Problems, Conditions, and Diagnoses No Information Surgeries/Procedures Procedure Description Date Indications Data Source(s) PHYSICIAN TELEPHONE EVALUATION 11-20 MIN 11/19/2020 12 :00:00 AM EDT [facility] ([facility], ) OFFICE OUTPATIENT VISIT 15 MINUTES 10/14/2020 12:00:00 AM EDT [facility] ([facility] ) OFFICE OUTPATIENT VISIT 25 MINUTES 10/14/2020 12:00:00 AM EDT [facility] ([facility] ) MRI Upper Extremity Any Joint 09/24/2020 12:00:00 AM E DT [facility] ([facility] ) OFFICE OUTPATIENT VISIT 15 MINUTES 09/18/2020 12:00:00 AM EDT [facility] ([facility] ) OFFICE OUTPATIENT VISIT 25 MINUTES 09/18/2020 12:00:00 AM EDT [facility] ([facility] ) OFFICE OUTPATIENT VISIT 10 MINUTES 08/07/2020 12:00:00 AM EDT [facility] ([facility] ) Physical Therapy Eval - Low Complexity 06/21/2020 12:0 0:00 AM EDT [facility] ([facility] ) RADEX WRIST COMPLETE MINIMUM 3 VIEWS 06/05/2020 12:00: 00 AM EDT [facility] ([facility] ) RADEX HAND MINIMUM 3 VIEWS 06/05/2020 12:00:00 AM EDT [facility] ([facility] ) OFFICE OUTPATIENT VISIT 25 MINUTES 06/05/2020 12:00:00 AM EDT [facility] ([facility] ) Needle electromyography, each extremity, with related paraspinal areas, when performed, done with nerve conduction, amplitude and latency/velocity study; complete, five or more muscles studied, innervated by three or more nerves or four or more spinal levels (list separately in addition to the code for primary procedure). 05/29/2020 12:00:00 AM EDT [facility] T ([facility], ) 13719 Nerve conduction studies 7-8 studies NEW 201205/29/2020 12:00:00 AM EDT [facility] ([facility], ) NON-INVASIVE PHYSIOLOGIC STUDY EXTREMITY 3 LEVLS 12/21 12:00:00 AM EDT [facility] ([facility], ) NON-INVASIVE PHYSIOLOGIC STUDY EXTREMITY 3 LEVLS 12/21 12:00:00 AM EDT [facility] ([facility], ) NON-INVASIVE PHYSIOLOGIC STUDY EXTREMITY 3 LEVLS 12/21 12:00:00 AM EDT [facility] ([facility]) NON-INVASIVE PHYSIOLOGIC STUDY EXTREMITY 3 LEVLS 12/21 12:00:00 AM EDT [facility] ([facility], ) TSTG ANS FUNCJ CARDIOVAGAL INNERVAJ PARASYMP 0 12:00:00 AM EDT [facility] ([facility]) TSTG ANS FUNCJ CARDIOVAGAL INNERVAJ PARASYMP 0 12:00:00 AM EDT [facility] ([facility]) TESTING AUTONOMIC NERVOUS SYSTEM FUNCTION 12/22/2019 1 2:00:00 AM EDT [facility] ([facility]) TESTING AUTONOMIC NERVOUS SYSTEM FUNCTION 12/22/2019 1 2:00:00 AM EDT [facility] ([facility], ) Results ID Date Data Source [id number] 12/08/2020 08:17:10 AM EDT [facility] Name Value Range Interpretation Code Description Data Bertha rce(s) Supporting Document(s) Progress Note 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+V3MfZY3+mNLC5dWyH4pTUr+CK28rdAyB5KA7338zpjb08iaoCvLN59Hguy/sF+/d6uGpesz77a+t6 [file] AgICAgICAgICAgICAgICAgICAgICAgICAgICAgICAgICAgICAgICAgICAgICAgICAgICAgICAgICAgIC HxXAVvXKLmKVPcLSIaKWUvRYVcSOQlQF9NRAWlKSVrVYJsZHDiSJOfXTOfICTzGCUqWTAdTOLbGRBqPI AgICAgICAgICAgICAgICAgICAgICAgICAgICAgICAg YZKsZFEdQBCxDNNmEGBaVUHfASHzWVLoDDNrXTOpTKPgZX9SHXQhZBBtIDQnPNEzINUmXABdPULmKPHw ICAgICAgICAgICAgICAgICAgICAgICAgICAgICAgICAgICAgICAgICAgICAgICAgICAgICAgICAgICAg GWReSADgJSVxAJUgVQDhWI5PLDOwPERkHSZtMNYqCO AgICAgICAgICAgICAgICAgICAgICAgICAgICAgICAgICAgICAgICAgICAgICAgICAgICAgICAgICAgIC RdQULrMLVlWHQqNFScKMNsOAQyYRJzSAChSD3KVCDzPJLqILYcUZPkUWQsSWArYNBgQEBaBIQhXQSaHY AgICAgICAgICAgICAgICAgICAgICAgICAgICAgICAg CVWuCVYxPPLfMIIyNXOvWUIrLEWlPIVjXZMpXWDlXQIlUBFqDX6JXBDoPWSeYIOzCUTeNDZaOTTeASKp ICAgICAgICAgICAgICAgICAgICAgICAgICAgICAgICAgICAgICAgICAgICAgICAgICAgICAgICAgICAg WNYdOPQvWOPiYFAtRCNwTPNeEB6JKXZwIQJtAEGaLQ AgICAgICAgICAgICAgICAgICAgICAgICAgICAgICAgICAgICAgICAgICAgICAgICAgICAgICAgICAgIC EoTEWuDOQnYPVkIUOxZKIcAKMlHAMxOFGoBZUyBR3XWJUsDZYdYFDhNYXnDZJzXMLdWNOiYSPmDYJoJA AgICAgICAgICAgICAgICAgICAgICAgICAgICAgICAg DCJjASUbFIUuLEIlYWYnXMSxFTPcVDVmOJYuVNQvKWAcQGPuDHPhWQ6YXLGlCJLyQLJmTFNpDPQfLDLm ICAgICAgICAgICAgICAgICAgICAgICAgICAgICAgICAgICAgICAgICAgICAgICAgICAgICAgICAgICAg IWDzAHMeLWGfAWAkOQAfHSUnEGKcBH9SZFLqJNOjQV AgICAgICAgICAgICAgICAgICAgICAgICAgICAgICAgICAgICAgICAgICAgICAgICAgICAgICAgICAgIC WaDAUyPMBwQWIvIUFwMCMmBSTzZTLnZBDlOFAnRBMvSH9XEH16kUXdj3F7CDEbOV7efzs/Rh3KCBugus KhfNFvMQ6TIlNtHA0llw7JOkDdWJ7vel5MXNxXAcIf S7J1mFUoVNGfLMITPpJwV33sCGenDe13WGcfIUQfWdCiYHj5Dt2RQcKdS7djADTyQkE7OLUnKsMvRLbb GU0Ig7UlnDNgFLg+Ek8VTU9dp3BqRVffSAXlRS8eqe9XWSqQByYuS0JuqoI6GOOnGIGvMz1FFXVaEHOp uAFeHYCxDPGLGmMzV8TfqP23DCDEXj9+DQplbmRvYm bEUvZsYNOlf6LzDSt9YK8ZRELjTFt5cFMgRRFlI7Gtu5YtXc55YYOkEjarOd6mWYvqKlT7majlIOTcZZ PcMHBhQL8aGLIvKIH6KwB5LDSSUH8OYOAeBIKyeYLaZGOmVROLPP4GSRxzHXP9XBNprqWwyNLkQWkdUB 9QYXJlbnQgMTkgMCBSDQo+Ki9VFZ2fb4XjBCvmYBHx DD5xjf1JFCwLYjWaJ9Z7lMVcV0A0OCsmZn8KHAZbDTHoPIvmBHZVFOoxYY1HQF3zogJ1AX3YuAIeVQEs BJJcuNHoVPs5K83zySPaUFcwMM2BLHE+Janet+Eu4QFMDkSCVeFFBwQyZvKKYCAwMeI0YpV0XTu9ZnM1Pe OC20tKdrsnUnFZziAG3KBM4fIUZhBEYOGT6ByYBbhO 2rwmGnEWDdEYMTPwKyQ80wwDJvJXHcVPE2OMUlTx6ZZSIvM1KyzfIzyRfbewIhDIQjXEICOZ7DVJalqi CfmHNbqIomJL92zOqpTR4GEf5BKiHeMJ6ojk8TcCAaGe1FXNEkOb6TPKMiANEwPQPgSRR5BLBlOzRwIL dmRWMsUPGgXKN3VVGhRMHiVB1IGdOiRCRbJWn6Mpcn KZPsFLZnor8BSBZiWNHbDSX7EqHuHQBdCOQwGZcrVBRlADMcGEE6LHWmUDKeUO1APuKlBTMhMYMeSGQh EDMdRGMvwb3BVGGdKIHtFjD9WJBwEJPgGUZrMVygBJErGKN8ARO7FLJcLQLiHC1QPvZcQQMcVTO7MVCc XVWpZJLdif4NKVDoCVBjXOjvHvUeDLDeISWoBMnlJD JjAZO7GCdsAKQxHRSkSY2WXgAyALGbHNYkYLJvUKAfRJDjlt5XVIKaQWHoIhM0JJOfPTQfVNTiAQosDI DuRRH4NlF6VEDiIGCmIZ3ZAqSnTPWuJJz3CQQnSEDnWJLgvi6UDHUkNLAeEIX4LBHaWIAmUYJfQHgaZP GaSGB4FXMzMPJmIKGiNI0PDsOcRGKePEr6BEDjRTKl SGGrdn4LFZDmUNUjPLo4EqUaVSZsGMRyPUehURWkZSByTtm3DZYgQLNmNH5LYvGyDFHjNsU0AWPiICKw SUHkub6RWXQyRURlOENkZIOxMAPbWEHcBBf9edCydNEuFHv8KR9RI8YkhjGrEkGXGz8Xs497YMJmEAKh Qy2JG3gyAi7yMYMhPHBREs0JHMx7WeU8CbcnUzRmGR hjTdHtBEGlIjJcA0YoXBb2AIGgIaW+ERf8PSouU5B8IZOfGTA8NgMgDRCpLDVfWPMwGhvpKTT3AF0sGU ANCj4+OFjdeUXdgUfdEIVGKyTbKRS1RUlyUMQPPu0L ID Date Data Source [id number] 08/07/2020 12:17:00 PM EDT [facility] ([facility] Name Value Range Interpretation Code Description Data Bertha rce(s) Supporting Document(s) Thyrotropin [Units/volume] in Serum or Plasma 3.059 ulU/mL 0.60-4.8 [facility] ([facility] ID Date Data Source [id number] 08/07/2020 12:16:00 PM EDT [facility] ([facility] Name Value Range Interpretation Code Description Data Bertha rce(s) Supporting Document(s) WBC 6.2 10E3/uL 4.1-10.9 [facility] ([facility] NORMAL RANGES Age WBC RBC HGB HCT MCV PLT Adult M 4.1-10.9 4.20-6.30 12.0-18.0 37.0-51.0 80-97 140-440 Adult F 4.1-10.9 4.04-5.48 12.0-18.0 37.0-51.0 80-97 140-440 0 -1 Yr 5.0-20.0 3.9-5.9 15-18 MV: 44 MV: 91 MV: 277 2-9 Yr. 6.0-17.0 3.8-5.4 11-13 MV: 37 MV: 78 MV: 300 10 Yrs. 5.0-13.0 3.8-5.4 12-15 MV: 39 MV: 80 MV: 250 NOTE: * FOR ADULT BLACK MALES AND FEMALES, NORMAL WBC IS 2.9-7.7 K/ML * FOR ADULT BLACK MALES AND FEMALES, NORMAL RBC,HGB, AND HCT IS 5% LESS SOURCE FOR DATA: [employer] 1800 OPERATION MANUAL( AUTOMATED BLOOD COUNTS AND DIFF.) APPENDIX B-3 CHRONIC KIDNEY DISEASE STAGING PER NKF: MALE GFR INTERPRETATION: 20-49 YRS: >60 mL/min Normal 50-59 YRS: >56 mL/min Normal 60-69 YRS: >49 mL/min Normal 70-79 YRS: >42 mL/min Normal 80 and above >35 mL/min Normal FEMALE GRF INTERPRETATION: 20-39 YRS: >60 mL/min Normal 40-49 YRS: >58 mL/min Normal 50-59 YRS: >51 mL/min Normal 60-69 YRS: >45 mL/min Normal 70-79 YRS: >39 mL/min Normal 80 and above >32 mL/min Normal RBC 4.57 10E6/uL 4.20-6.30 [facility] ([facility] NORMAL RANGES Age WBC RBC HGB HCT MCV PLT Adult M 4.1-10.9 4.20-6.30 12.0-18.0 37.0-51.0 80-97 140-440 Adult F 4.1-10.9 4.04-5.48 12.0-18.0 37.0-51.0 80-97 140-440 0 -1 Yr 5.0-20.0 3.9-5.9 15-18 MV: 44 MV: 91 MV: 277 2-9 Yr. 6.0-17.0 3.8-5.4 11-13 MV: 37 MV: 78 MV: 300 10 Yrs. 5.0-13.0 3.8-5.4 12-15 MV: 39 MV: 80 MV: 250 NOTE: * FOR ADULT BLACK MALES AND FEMALES, NORMAL WBC IS 2.9-7.7 K/ML * FOR ADULT BLACK MALES AND FEMALES, NORMAL RBC,HGB, AND HCT IS 5% LESS SOURCE FOR DATA: [employer] 1800 OPERATION MANUAL( AUTOMATED BLOOD COUNTS AND DIFF.) APPENDIX B-3 CHRONIC KIDNEY DISEASE STAGING PER NKF: MALE GFR INTERPRETATION: 20-49 YRS: >60 mL/min Normal 50-59 YRS: >56 mL/min Normal 60-69 YRS: >49 mL/min Normal 70-79 YRS: >42 mL/min Normal 80 and above >35 mL/min Normal FEMALE GRF INTERPRETATION: 20-39 YRS: >60 mL/min Normal 40-49 YRS: >58 mL/min Normal 50-59 YRS: >51 mL/min Normal 60-69 YRS: >45 mL/min Normal 70-79 YRS: >39 mL/min Normal 80 and above >32 mL/min Normal HGB 14.7 g/dL 12.0-18.0 [facility] NORMAL RANGES Age WBC RBC HGB HCT MCV PLT Adult M 4.1-10.9 4.20-6.30 12.0-18.0 37.0-51.0 80-97 140-440 Adult F 4.1-10.9 4.04-5.48 12.0-18.0 37.0-51.0 80-97 140-440 0 -1 Yr 5.0-20.0 3.9-5.9 15-18 MV: 44 MV: 91 MV: 277 2-9 Yr. 6.0-17.0 3.8-5.4 11-13 MV: 37 MV: 78 MV: 300 10 Yrs. 5.0-13.0 3.8-5.4 12-15 MV: 39 MV: 80 MV: 250 NOTE: * FOR ADULT BLACK MALES AND FEMALES, NORMAL WBC IS 2.9-7.7 K/ML * FOR ADULT BLACK MALES AND FEMALES, NORMAL RBC,HGB, AND HCT IS 5% LESS SOURCE FOR DATA: [employer] 1800 OPERATION MANUAL( AUTOMATED BLOOD COUNTS AND DIFF.) APPENDIX B-3 CHRONIC KIDNEY DISEASE STAGING PER NKF: MALE GFR INTERPRETATION: 20-49 YRS: >60 mL/min Normal 50-59 YRS: >56 mL/min Normal 60-69 YRS: >49 mL/min Normal 70-79 YRS: >42 mL/min Normal 80 and above >35 mL/min Normal FEMALE GRF INTERPRETATION: 20-39 YRS: >60 mL/min Normal 40-49 YRS: >58 mL/min Normal 50-59 YRS: >51 mL/min Normal 60-69 YRS: >45 mL/min Normal 70-79 YRS: >39 mL/min Normal 80 and above >32 mL/min Normal MCV 91.0 fL 80.0-97.0 [facility] ([facility] NORMAL RANGES Age WBC RBC HGB HCT MCV PLT Adult M 4.1-10.9 4.20-6.30 12.0-18.0 37.0-51.0 80-97 140-440 Adult F 4.1-10.9 4.04-5.48 12.0-18.0 37.0-51.0 80-97 140-440 0 -1 Yr 5.0-20.0 3.9-5.9 15-18 MV: 44 MV: 91 MV: 277 2-9 Yr. 6.0-17.0 3.8-5.4 11-13 MV: 37 MV: 78 MV: 300 10 Yrs. 5.0-13.0 3.8-5.4 12-15 MV: 39 MV: 80 MV: 250 NOTE: * FOR ADULT BLACK MALES AND FEMALES, NORMAL WBC IS 2.9-7.7 K/ML * FOR ADULT BLACK MALES AND FEMALES, NORMAL RBC,HGB, AND HCT IS 5% LESS SOURCE FOR DATA: [employer] 1800 OPERATION MANUAL( AUTOMATED BLOOD COUNTS AND DIFF.) APPENDIX B-3 CHRONIC KIDNEY DISEASE STAGING PER NKF: MALE GFR INTERPRETATION: 20-49 YRS: >60 mL/min Normal 50-59 YRS: >56 mL/min Normal 60-69 YRS: >49 mL/min Normal 70-79 YRS: >42 mL/min Normal 80 and above >35 mL/min Normal FEMALE GRF INTERPRETATION: 20-39 YRS: >60 mL/min Normal 40-49 YRS: >58 mL/min Normal 50-59 YRS: >51 mL/min Normal 60-69 YRS: >45 mL/min Normal 70-79 YRS: >39 mL/min Normal 80 and above >32 mL/min Normal HCT 41.6 % 37.0-51.0 [facility] NORMAL RANGES Age WBC RBC HGB HCT MCV PLT Adult M 4.1-10.9 4.20-6.30 12.0-18.0 37.0-51.0 80-97 140-440 Adult F 4.1-10.9 4.04-5.48 12.0-18.0 37.0-51.0 80-97 140-440 0 -1 Yr 5.0-20.0 3.9-5.9 15-18 MV: 44 MV: 91 MV: 277 2-9 Yr. 6.0-17.0 3.8-5.4 11-13 MV: 37 MV: 78 MV: 300 10 Yrs. 5.0-13.0 3.8-5.4 12-15 MV: 39 MV: 80 MV: 250 NOTE: * FOR ADULT BLACK MALES AND FEMALES, NORMAL WBC IS 2.9-7.7 K/ML * FOR ADULT BLACK MALES AND FEMALES, NORMAL RBC,HGB, AND HCT IS 5% LESS SOURCE FOR DATA: [employer] 1800 OPERATION MANUAL( AUTOMATED BLOOD COUNTS AND DIFF.) APPENDIX B-3 CHRONIC KIDNEY DISEASE STAGING PER NKF: MALE GFR INTERPRETATION: 20-49 YRS: >60 mL/min Normal 50-59 YRS: >56 mL/min Normal 60-69 YRS: >49 mL/min Normal 70-79 YRS: >42 mL/min Normal 80 and above >35 mL/min Normal FEMALE GRF INTERPRETATION: 20-39 YRS: >60 mL/min Normal 40-49 YRS: >58 mL/min Normal 50-59 YRS: >51 mL/min Normal 60-69 YRS: >45 mL/min Normal 70-79 YRS: >39 mL/min Normal 80 and above >32 mL/min Normal MCH 32.2 pg 26.0-32.0 Above high normal [facility] ([facility] NORMAL RANGES Age WBC RBC HGB HCT MCV PLT Adult M 4.1-10.9 4.20-6.30 12.0-18.0 37.0-51.0 80-97 140-440 Adult F 4.1-10.9 4.04-5.48 12.0-18.0 37.0-51.0 80-97 140-440 0 -1 Yr 5.0-20.0 3.9-5.9 15-18 MV: 44 MV: 91 MV: 277 2-9 Yr. 6.0-17.0 3.8-5.4 11-13 MV: 37 MV: 78 MV: 300 10 Yrs. 5.0-13.0 3.8-5.4 12-15 MV: 39 MV: 80 MV: 250 NOTE: * FOR ADULT BLACK MALES AND FEMALES, NORMAL WBC IS 2.9-7.7 K/ML * FOR ADULT BLACK MALES AND FEMALES, NORMAL RBC,HGB, AND HCT IS 5% LESS SOURCE FOR DATA: [employer] 1800 OPERATION MANUAL( AUTOMATED BLOOD COUNTS AND DIFF.) APPENDIX B-3 CHRONIC KIDNEY DISEASE STAGING PER NKF: MALE GFR INTERPRETATION: 20-49 YRS: >60 mL/min Normal 50-59 YRS: >56 mL/min Normal 60-69 YRS: >49 mL/min Normal 70-79 YRS: >42 mL/min Normal 80 and above >35 mL/min Normal FEMALE GRF INTERPRETATION: 20-39 YRS: >60 mL/min Normal 40-49 YRS: >58 mL/min Normal 50-59 YRS: >51 mL/min Normal 60-69 YRS: >45 mL/min Normal 70-79 YRS: >39 mL/min Normal 80 and above >32 mL/min Normal PLT 294 10E3/uL 140-440 [facility] ([facility] NORMAL RANGES Age WBC RBC HGB HCT MCV PLT Adult M 4.1-10.9 4.20-6.30 12.0-18.0 37.0-51.0 80-97 140-440 Adult F 4.1-10.9 4.04-5.48 12.0-18.0 37.0-51.0 80-97 140-440 0 -1 Yr 5.0-20.0 3.9-5.9 15-18 MV: 44 MV: 91 MV: 277 2-9 Yr. 6.0-17.0 3.8-5.4 11-13 MV: 37 MV: 78 MV: 300 10 Yrs. 5.0-13.0 3.8-5.4 12-15 MV: 39 MV: 80 MV: 250 NOTE: * FOR ADULT BLACK MALES AND FEMALES, NORMAL WBC IS 2.9-7.7 K/ML * FOR ADULT BLACK MALES AND FEMALES, NORMAL RBC,HGB, AND HCT IS 5% LESS SOURCE FOR DATA: [employer] 1800 OPERATION MANUAL( AUTOMATED BLOOD COUNTS AND DIFF.) APPENDIX B-3 CHRONIC KIDNEY DISEASE STAGING PER NKF: MALE GFR INTERPRETATION: 20-49 YRS: >60 mL/min Normal 50-59 YRS: >56 mL/min Normal 60-69 YRS: >49 mL/min Normal 70-79 YRS: >42 mL/min Normal 80 and above >35 mL/min Normal FEMALE GRF INTERPRETATION: 20-39 YRS: >60 mL/min Normal 40-49 YRS: >58 mL/min Normal 50-59 YRS: >51 mL/min Normal 60-69 YRS: >45 mL/min Normal 70-79 YRS: >39 mL/min Normal 80 and above >32 mL/min Normal MCHC 35.3 g/dL 31.0-36.0 [facility] ([facility] NORMAL RANGES Age WBC RBC HGB HCT MCV PLT Adult M 4.1-10.9 4.20-6.30 12.0-18.0 37.0-51.0 80-97 140-440 Adult F 4.1-10.9 4.04-5.48 12.0-18.0 37.0-51.0 80-97 140-440 0 -1 Yr 5.0-20.0 3.9-5.9 15-18 MV: 44 MV: 91 MV: 277 2-9 Yr. 6.0-17.0 3.8-5.4 11-13 MV: 37 MV: 78 MV: 300 10 Yrs. 5.0-13.0 3.8-5.4 12-15 MV: 39 MV: 80 MV: 250 NOTE: * FOR ADULT BLACK MALES AND FEMALES, NORMAL WBC IS 2.9-7.7 K/ML * FOR ADULT BLACK MALES AND FEMALES, NORMAL RBC,HGB, AND HCT IS 5% LESS SOURCE FOR DATA: [employer] 1800 OPERATION MANUAL( AUTOMATED BLOOD COUNTS AND DIFF.) APPENDIX B-3 CHRONIC KIDNEY DISEASE STAGING PER NKF: MALE GFR INTERPRETATION: 20-49 YRS: >60 mL/min Normal 50-59 YRS: >56 mL/min Normal 60-69 YRS: >49 mL/min Normal 70-79 YRS: >42 mL/min Normal 80 and above >35 mL/min Normal FEMALE GRF INTERPRETATION: 20-39 YRS: >60 mL/min Normal 40-49 YRS: >58 mL/min Normal 50-59 YRS: >51 mL/min Normal 60-69 YRS: >45 mL/min Normal 70-79 YRS: >39 mL/min Normal 80 and above >32 mL/min Normal RDW-CV 12.3 % 11.5-14.5 [facility] NORMAL RANGES Age WBC RBC HGB HCT MCV PLT Adult M 4.1-10.9 4.20-6.30 12.0-18.0 37.0-51.0 80-97 140-440 Adult F 4.1-10.9 4.04-5.48 12.0-18.0 37.0-51.0 80-97 140-440 0 -1 Yr 5.0-20.0 3.9-5.9 15-18 MV: 44 MV: 91 MV: 277 2-9 Yr. 6.0-17.0 3.8-5.4 11-13 MV: 37 MV: 78 MV: 300 10 Yrs. 5.0-13.0 3.8-5.4 12-15 MV: 39 MV: 80 MV: 250 NOTE: * FOR ADULT BLACK MALES AND FEMALES, NORMAL WBC IS 2.9-7.7 K/ML * FOR ADULT BLACK MALES AND FEMALES, NORMAL RBC,HGB, AND HCT IS 5% LESS SOURCE FOR DATA: [employer] 1800 OPERATION MANUAL( AUTOMATED BLOOD COUNTS AND DIFF.) APPENDIX B-3 CHRONIC KIDNEY DISEASE STAGING PER NKF: MALE GFR INTERPRETATION: 20-49 YRS: >60 mL/min Normal 50-59 YRS: >56 mL/min Normal 60-69 YRS: >49 mL/min Normal 70-79 YRS: >42 mL/min Normal 80 and above >35 mL/min Normal FEMALE GRF INTERPRETATION: 20-39 YRS: >60 mL/min Normal 40-49 YRS: >58 mL/min Normal 50-59 YRS: >51 mL/min Normal 60-69 YRS: >45 mL/min Normal 70-79 YRS: >39 mL/min Normal 80 and above >32 mL/min Normal Neut% 57.7 % 37.0-92.0 [facility] ([facility] NORMAL RANGES Age WBC RBC HGB HCT MCV PLT Adult M 4.1-10.9 4.20-6.30 12.0-18.0 37.0-51.0 80-97 140-440 Adult F 4.1-10.9 4.04-5.48 12.0-18.0 37.0-51.0 80-97 140-440 0 -1 Yr 5.0-20.0 3.9-5.9 15-18 MV: 44 MV: 91 MV: 277 2-9 Yr. 6.0-17.0 3.8-5.4 11-13 MV: 37 MV: 78 MV: 300 10 Yrs. 5.0-13.0 3.8-5.4 12-15 MV: 39 MV: 80 MV: 250 NOTE: * FOR ADULT BLACK MALES AND FEMALES, NORMAL WBC IS 2.9-7.7 K/ML * FOR ADULT BLACK MALES AND FEMALES, NORMAL RBC,HGB, AND HCT IS 5% LESS SOURCE FOR DATA: [employer] 1800 OPERATION MANUAL( AUTOMATED BLOOD COUNTS AND DIFF.) APPENDIX B-3 CHRONIC KIDNEY DISEASE STAGING PER NKF: MALE GFR INTERPRETATION: 20-49 YRS: >60 mL/min Normal 50-59 YRS: >56 mL/min Normal 60-69 YRS: >49 mL/min Normal 70-79 YRS: >42 mL/min Normal 80 and above >35 mL/min Normal FEMALE GRF INTERPRETATION: 20-39 YRS: >60 mL/min Normal 40-49 YRS: >58 mL/min Normal 50-59 YRS: >51 mL/min Normal 60-69 YRS: >45 mL/min Normal 70-79 YRS: >39 mL/min Normal 80 and above >32 mL/min Normal Lym% 34.9 % 10.0-58.5 [facility] ([facility] NORMAL RANGES Age WBC RBC HGB HCT MCV PLT Adult M 4.1-10.9 4.20-6.30 12.0-18.0 37.0-51.0 80-97 140-440 Adult F 4.1-10.9 4.04-5.48 12.0-18.0 37.0-51.0 80-97 140-440 0 -1 Yr 5.0-20.0 3.9-5.9 15-18 MV: 44 MV: 91 MV: 277 2-9 Yr. 6.0-17.0 3.8-5.4 11-13 MV: 37 MV: 78 MV: 300 10 Yrs. 5.0-13.0 3.8-5.4 12-15 MV: 39 MV: 80 MV: 250 NOTE: * FOR ADULT BLACK MALES AND FEMALES, NORMAL WBC IS 2.9-7.7 K/ML * FOR ADULT BLACK MALES AND FEMALES, NORMAL RBC,HGB, AND HCT IS 5% LESS SOURCE FOR DATA: [employer] 1800 OPERATION MANUAL( AUTOMATED BLOOD COUNTS AND DIFF.) APPENDIX B-3 CHRONIC KIDNEY DISEASE STAGING PER NKF: MALE GFR INTERPRETATION: 20-49 YRS: >60 mL/min Normal 50-59 YRS: >56 mL/min Normal 60-69 YRS: >49 mL/min Normal 70-79 YRS: >42 mL/min Normal 80 and above >35 mL/min Normal FEMALE GRF INTERPRETATION: 20-39 YRS: >60 mL/min Normal 40-49 YRS: >58 mL/min Normal 50-59 YRS: >51 mL/min Normal 60-69 YRS: >45 mL/min Normal 70-79 YRS: >39 mL/min Normal 80 and above >32 mL/min Normal Neut# 3.5 % 2.0-7.8 [facility] ([facility] NORMAL RANGES Age WBC RBC HGB HCT MCV PLT Adult M 4.1-10.9 4.20-6.30 12.0-18.0 37.0-51.0 80-97 140-440 Adult F 4.1-10.9 4.04-5.48 12.0-18.0 37.0-51.0 80-97 140-440 0 -1 Yr 5.0-20.0 3.9-5.9 15-18 MV: 44 MV: 91 MV: 277 2-9 Yr. 6.0-17.0 3.8-5.4 11-13 MV: 37 MV: 78 MV: 300 10 Yrs. 5.0-13.0 3.8-5.4 12-15 MV: 39 MV: 80 MV: 250 NOTE: * FOR ADULT BLACK MALES AND FEMALES, NORMAL WBC IS 2.9-7.7 K/ML * FOR ADULT BLACK MALES AND FEMALES, NORMAL RBC,HGB, AND HCT IS 5% LESS SOURCE FOR DATA: [employer] 1800 OPERATION MANUAL( AUTOMATED BLOOD COUNTS AND DIFF.) APPENDIX B-3 CHRONIC KIDNEY DISEASE STAGING PER NKF: MALE GFR INTERPRETATION: 20-49 YRS: >60 mL/min Normal 50-59 YRS: >56 mL/min Normal 60-69 YRS: >49 mL/min Normal 70-79 YRS: >42 mL/min Normal 80 and above >35 mL/min Normal FEMALE GRF INTERPRETATION: 20-39 YRS: >60 mL/min Normal 40-49 YRS: >58 mL/min Normal 50-59 YRS: >51 mL/min Normal 60-69 YRS: >45 mL/min Normal 70-79 YRS: >39 mL/min Normal 80 and above >32 mL/min Normal MXD% 7.4 % 0.1-24.0 [facility] ([facility] NORMAL RANGES Age WBC RBC HGB HCT MCV PLT Adult M 4.1-10.9 4.20-6.30 12.0-18.0 37.0-51.0 80-97 140-440 Adult F 4.1-10.9 4.04-5.48 12.0-18.0 37.0-51.0 80-97 140-440 0 -1 Yr 5.0-20.0 3.9-5.9 15-18 MV: 44 MV: 91 MV: 277 2-9 Yr. 6.0-17.0 3.8-5.4 11-13 MV: 37 MV: 78 MV: 300 10 Yrs. 5.0-13.0 3.8-5.4 12-15 MV: 39 MV: 80 MV: 250 NOTE: * FOR ADULT BLACK MALES AND FEMALES, NORMAL WBC IS 2.9-7.7 K/ML * FOR ADULT BLACK MALES AND FEMALES, NORMAL RBC,HGB, AND HCT IS 5% LESS SOURCE FOR DATA: [employer] 1800 OPERATION MANUAL( AUTOMATED BLOOD COUNTS AND DIFF.) APPENDIX B-3 CHRONIC KIDNEY DISEASE STAGING PER NKF: MALE GFR INTERPRETATION: 20-49 YRS: >60 mL/min Normal 50-59 YRS: >56 mL/min Normal 60-69 YRS: >49 mL/min Normal 70-79 YRS: >42 mL/min Normal 80 and above >35 mL/min Normal FEMALE GRF INTERPRETATION: 20-39 YRS: >60 mL/min Normal 40-49 YRS: >58 mL/min Normal 50-59 YRS: >51 mL/min Normal 60-69 YRS: >45 mL/min Normal 70-79 YRS: >39 mL/min Normal 80 and above >32 mL/min Normal Lym# 2.2 10E3/uL 0.6-4.1 [facility] ([facility] NORMAL RANGES Age WBC RBC HGB HCT MCV PLT Adult M 4.1-10.9 4.20-6.30 12.0-18.0 37.0-51.0 80-97 140-440 Adult F 4.1-10.9 4.04-5.48 12.0-18.0 37.0-51.0 80-97 140-440 0 -1 Yr 5.0-20.0 3.9-5.9 15-18 MV: 44 MV: 91 MV: 277 2-9 Yr. 6.0-17.0 3.8-5.4 11-13 MV: 37 MV: 78 MV: 300 10 Yrs. 5.0-13.0 3.8-5.4 12-15 MV: 39 MV: 80 MV: 250 NOTE: * FOR ADULT BLACK MALES AND FEMALES, NORMAL WBC IS 2.9-7.7 K/ML * FOR ADULT BLACK MALES AND FEMALES, NORMAL RBC,HGB, AND HCT IS 5% LESS SOURCE FOR DATA: [employer] 1800 OPERATION MANUAL( AUTOMATED BLOOD COUNTS AND DIFF.) APPENDIX B-3 CHRONIC KIDNEY DISEASE STAGING PER NKF: MALE GFR INTERPRETATION: 20-49 YRS: >60 mL/min Normal 50-59 YRS: >56 mL/min Normal 60-69 YRS: >49 mL/min Normal 70-79 YRS: >42 mL/min Normal 80 and above >35 mL/min Normal FEMALE GRF INTERPRETATION: 20-39 YRS: >60 mL/min Normal 40-49 YRS: >58 mL/min Normal 50-59 YRS: >51 mL/min Normal 60-69 YRS: >45 mL/min Normal 70-79 YRS: >39 mL/min Normal 80 and above >32 mL/min Normal MPV 9.1 fL 9.0-13.0 [facility] NORMAL RANGES Age WBC RBC HGB HCT MCV PLT Adult M 4.1-10.9 4.20-6.30 12.0-18.0 37.0-51.0 80-97 140-440 Adult F 4.1-10.9 4.04-5.48 12.0-18.0 37.0-51.0 80-97 140-440 0 -1 Yr 5.0-20.0 3.9-5.9 15-18 MV: 44 MV: 91 MV: 277 2-9 Yr. 6.0-17.0 3.8-5.4 11-13 MV: 37 MV: 78 MV: 300 10 Yrs. 5.0-13.0 3.8-5.4 12-15 MV: 39 MV: 80 MV: 250 NOTE: * FOR ADULT BLACK MALES AND FEMALES, NORMAL WBC IS 2.9-7.7 K/ML * FOR ADULT BLACK MALES AND FEMALES, NORMAL RBC,HGB, AND HCT IS 5% LESS SOURCE FOR DATA: [employer] 1800 OPERATION MANUAL( AUTOMATED BLOOD COUNTS AND DIFF.) APPENDIX B-3 CHRONIC KIDNEY DISEASE STAGING PER NKF: MALE GFR INTERPRETATION: 20-49 YRS: >60 mL/min Normal 50-59 YRS: >56 mL/min Normal 60-69 YRS: >49 mL/min Normal 70-79 YRS: >42 mL/min Normal 80 and above >35 mL/min Normal FEMALE GRF INTERPRETATION: 20-39 YRS: >60 mL/min Normal 40-49 YRS: >58 mL/min Normal 50-59 YRS: >51 mL/min Normal 60-69 YRS: >45 mL/min Normal 70-79 YRS: >39 mL/min Normal 80 and above >32 mL/min Normal MXD# 0.5 10E3/uL 0.0-1.8 [place] ([facility] NORMAL RANGES Age WBC RBC HGB HCT MCV PLT Adult M 4.1-10.9 4.20-6.30 12.0-18.0 37.0-51.0 80-97 140-440 Adult F 4.1-10.9 4.04-5.48 12.0-18.0 37.0-51.0 80-97 140-440 0 -1 Yr 5.0-20.0 3.9-5.9 15-18 MV: 44 MV: 91 MV: 277 2-9 Yr. 6.0-17.0 3.8-5.4 11-13 MV: 37 MV: 78 MV: 300 10 Yrs. 5.0-13.0 3.8-5.4 12-15 MV: 39 MV: 80 MV: 250 NOTE: * FOR ADULT BLACK MALES AND FEMALES, NORMAL WBC IS 2.9-7.7 K/ML * FOR ADULT BLACK MALES AND FEMALES, NORMAL RBC,HGB, AND HCT IS 5% LESS SOURCE FOR DATA: [employer] 1800 OPERATION MANUAL( AUTOMATED BLOOD COUNTS AND DIFF.) APPENDIX B-3 CHRONIC KIDNEY DISEASE STAGING PER NKF: MALE GFR INTERPRETATION: 20-49 YRS: >60 mL/min Normal 50-59 YRS: >56 mL/min Normal 60-69 YRS: >49 mL/min Normal 70-79 YRS: >42 mL/min Normal 80 and above >35 mL/min Normal FEMALE GRF INTERPRETATION: 20-39 YRS: >60 mL/min Normal 40-49 YRS: >58 mL/min Normal 50-59 YRS: >51 mL/min Normal 60-69 YRS: >45 mL/min Normal 70-79 YRS: >39 mL/min Normal 80 and above >32 mL/min Normal ID Date Data Source [id number] 08/07/2020 12:16:00 PM EDT [facility] ([facility] Name Value Range Interpretation Code Description Data Bertha rce(s) Supporting Document(s) Glu 113 mg/dL 70-110 Above high normal [facility] ([facility] [employer] [facility] NORMAL RANGES Age WBC RBC HGB HCT MCV PLT Adult M 4.1-10.9 4.20-6.30 12.0-18.0 37.0-51.0 80-97 140-440 Adult F 4.1-10.9 4.04-5.48 12.0-18.0 37.0-51.0 80-97 140-440 0 -1 Yr 5.0-20.0 3.9-5.9 15-18 MV: 44 MV: 91 MV: 277 2-9 Yr. 6.0-17.0 3.8-5.4 11-13 MV: 37 MV: 78 MV: 300 10 Yrs. 5.0-13.0 3.8-5.4 12-15 MV: 39 MV: 80 MV: 250 NOTE: * FOR ADULT BLACK MALES AND FEMALES, NORMAL WBC IS 2.9-7.7 K/ML * FOR ADULT BLACK MALES AND FEMALES, NORMAL RBC,HGB, AND HCT IS 5% LESS SOURCE FOR DATA: [employer] 1800 OPERATION MANUAL( AUTOMATED BLOOD COUNTS AND DIFF.) APPENDIX B-3 CHRONIC KIDNEY DISEASE STAGING PER NKF: MALE GFR INTERPRETATION: 20-49 YRS: >60 mL/min Normal 50-59 YRS: >56 mL/min Normal 60-69 YRS: >49 mL/min Normal 70-79 YRS: >42 mL/min Normal 80 and above >35 mL/min Normal FEMALE GRF INTERPRETATION: 20-39 YRS: >60 mL/min Normal 40-49 YRS: >58 mL/min Normal 50-59 YRS: >51 mL/min Normal 60-69 YRS: >45 mL/min Normal 70-79 YRS: >39 mL/min Normal 80 and above >32 mL/min Normal BUN 9 mg/dL 8- [facility] NORMAL RANGES Age WBC RBC HGB HCT MCV PLT Adult M 4.1-10.9 4.20-6.30 12.0-18.0 37.0-51.0 80-97 140-440 Adult F 4.1-10.9 4.04-5.48 12.0-18.0 37.0-51.0 80-97 140-440 0 -1 Yr 5.0-20.0 3.9-5.9 15-18 MV: 44 MV: 91 MV: 277 2-9 Yr. 6.0-17.0 3.8-5.4 11-13 MV: 37 MV: 78 MV: 300 10 Yrs. 5.0-13.0 3.8-5.4 12-15 MV: 39 MV: 80 MV: 250 NOTE: * FOR ADULT BLACK MALES AND FEMALES, NORMAL WBC IS 2.9-7.7 K/ML * FOR ADULT BLACK MALES AND FEMALES, NORMAL RBC,HGB, AND HCT IS 5% LESS SOURCE FOR DATA: [employer] 1800 OPERATION MANUAL( AUTOMATED BLOOD COUNTS AND DIFF.) APPENDIX B-3 CHRONIC KIDNEY DISEASE STAGING PER NKF: MALE GFR INTERPRETATION: 20-49 YRS: >60 mL/min Normal 50-59 YRS: >56 mL/min Normal 60-69 YRS: >49 mL/min Normal 70-79 YRS: >42 mL/min Normal 80 and above >35 mL/min Normal FEMALE GRF INTERPRETATION: 20-39 YRS: >60 mL/min Normal 40-49 YRS: >58 mL/min Normal 50-59 YRS: >51 mL/min Normal 60-69 YRS: >45 mL/min Normal 70-79 YRS: >39 mL/min Normal 80 and above >32 mL/min Normal Creat 0.8 mg/dL 0.5-1.0 [facility] NORMAL RANGES Age WBC RBC HGB HCT MCV PLT Adult M 4.1-10.9 4.20-6.30 12.0-18.0 37.0-51.0 80-97 140-440 Adult F 4.1-10.9 4.04-5.48 12.0-18.0 37.0-51.0 80-97 140-440 0 -1 Yr 5.0-20.0 3.9-5.9 15-18 MV: 44 MV: 91 MV: 277 2-9 Yr. 6.0-17.0 3.8-5.4 11-13 MV: 37 MV: 78 MV: 300 10 Yrs. 5.0-13.0 3.8-5.4 12-15 MV: 39 MV: 80 MV: 250 NOTE: * FOR ADULT BLACK MALES AND FEMALES, NORMAL WBC IS 2.9-7.7 K/ML * FOR ADULT BLACK MALES AND FEMALES, NORMAL RBC,HGB, AND HCT IS 5% LESS SOURCE FOR DATA: [employer] 1800 OPERATION MANUAL( AUTOMATED BLOOD COUNTS AND DIFF.) APPENDIX B-3 CHRONIC KIDNEY DISEASE STAGING PER NKF: MALE GFR INTERPRETATION: 20-49 YRS: >60 mL/min Normal 50-59 YRS: >56 mL/min Normal 60-69 YRS: >49 mL/min Normal 70-79 YRS: >42 mL/min Normal 80 and above >35 mL/min Normal FEMALE GRF INTERPRETATION: 20-39 YRS: >60 mL/min Normal 40-49 YRS: >58 mL/min Normal 50-59 YRS: >51 mL/min Normal 60-69 YRS: >45 mL/min Normal 70-79 YRS: >39 mL/min Normal 80 and above >32 mL/min Normal BUN/Creatinine Ratio 11.1 CALC [facility] ([facility] NORMAL RANGES Age WBC RBC HGB HCT MCV PLT Adult M 4.1-10.9 4.20-6.30 12.0-18.0 37.0-51.0 80-97 140-440 Adult F 4.1-10.9 4.04-5.48 12.0-18.0 37.0-51.0 80-97 140-440 0 -1 Yr 5.0-20.0 3.9-5.9 15-18 MV: 44 MV: 91 MV: 277 2-9 Yr. 6.0-17.0 3.8-5.4 11-13 MV: 37 MV: 78 MV: 300 10 Yrs. 5.0-13.0 3.8-5.4 12-15 MV: 39 MV: 80 MV: 250 NOTE: * FOR ADULT BLACK MALES AND FEMALES, NORMAL WBC IS 2.9-7.7 K/ML * FOR ADULT BLACK MALES AND FEMALES, NORMAL RBC,HGB, AND HCT IS 5% LESS SOURCE FOR DATA: [employer] 1800 OPERATION MANUAL( AUTOMATED BLOOD COUNTS AND DIFF.) APPENDIX B-3 CHRONIC KIDNEY DISEASE STAGING PER NKF: MALE GFR INTERPRETATION: 20-49 YRS: >60 mL/min Normal 50-59 YRS: >56 mL/min Normal 60-69 YRS: >49 mL/min Normal 70-79 YRS: >42 mL/min Normal 80 and above >35 mL/min Normal FEMALE GRF INTERPRETATION: 20-39 YRS: >60 mL/min Normal 40-49 YRS: >58 mL/min Normal 50-59 YRS: >51 mL/min Normal 60-69 YRS: >45 mL/min Normal 70-79 YRS: >39 mL/min Normal 80 and above >32 mL/min Normal K 4.2 mmol/L 3.5-5.1 [facility] NORMAL RANGES Age WBC RBC HGB HCT MCV PLT Adult M 4.1-10.9 4.20-6.30 12.0-18.0 37.0-51.0 80-97 140-440 Adult F 4.1-10.9 4.04-5.48 12.0-18.0 37.0-51.0 80-97 140-440 0 -1 Yr 5.0-20.0 3.9-5.9 15-18 MV: 44 MV: 91 MV: 277 2-9 Yr. 6.0-17.0 3.8-5.4 11-13 MV: 37 MV: 78 MV: 300 10 Yrs. 5.0-13.0 3.8-5.4 12-15 MV: 39 MV: 80 MV: 250 NOTE: * FOR ADULT BLACK MALES AND FEMALES, NORMAL WBC IS 2.9-7.7 K/ML * FOR ADULT BLACK MALES AND FEMALES, NORMAL RBC,HGB, AND HCT IS 5% LESS SOURCE FOR DATA: [employer] 1800 OPERATION MANUAL( AUTOMATED BLOOD COUNTS AND DIFF.) APPENDIX B-3 CHRONIC KIDNEY DISEASE STAGING PER NKF: MALE GFR INTERPRETATION: 20-49 YRS: >60 mL/min Normal 50-59 YRS: >56 mL/min Normal 60-69 YRS: >49 mL/min Normal 70-79 YRS: >42 mL/min Normal 80 and above >35 mL/min Normal FEMALE GRF INTERPRETATION: 20-39 YRS: >60 mL/min Normal 40-49 YRS: >58 mL/min Normal 50-59 YRS: >51 mL/min Normal 60-69 YRS: >45 mL/min Normal 70-79 YRS: >39 mL/min Normal 80 and above >32 mL/min Normal Na 136 mmol/L 136-145 [facility] NORMAL RANGES Age WBC RBC HGB HCT MCV PLT Adult M 4.1-10.9 4.20-6.30 12.0-18.0 37.0-51.0 80-97 140-440 Adult F 4.1-10.9 4.04-5.48 12.0-18.0 37.0-51.0 80-97 140-440 0 -1 Yr 5.0-20.0 3.9-5.9 15-18 MV: 44 MV: 91 MV: 277 2-9 Yr. 6.0-17.0 3.8-5.4 11-13 MV: 37 MV: 78 MV: 300 10 Yrs. 5.0-13.0 3.8-5.4 12-15 MV: 39 MV: 80 MV: 250 NOTE: * FOR ADULT BLACK MALES AND FEMALES, NORMAL WBC IS 2.9-7.7 K/ML * FOR ADULT BLACK MALES AND FEMALES, NORMAL RBC,HGB, AND HCT IS 5% LESS SOURCE FOR DATA: [employer] 1800 OPERATION MANUAL( AUTOMATED BLOOD COUNTS AND DIFF.) APPENDIX B-3 CHRONIC KIDNEY DISEASE STAGING PER NKF: MALE GFR INTERPRETATION: 20-49 YRS: >60 mL/min Normal 50-59 YRS: >56 mL/min Normal 60-69 YRS: >49 mL/min Normal 70-79 YRS: >42 mL/min Normal 80 and above >35 mL/min Normal FEMALE GRF INTERPRETATION: 20-39 YRS: >60 mL/min Normal 40-49 YRS: >58 mL/min Normal 50-59 YRS: >51 mL/min Normal 60-69 YRS: >45 mL/min Normal 70-79 YRS: >39 mL/min Normal 80 and above >32 mL/min Normal Co2 21.2 mmol/L 22.0-29.0 Below low normal [facility] NORMAL RANGES Age WBC RBC HGB HCT MCV PLT Adult M 4.1-10.9 4.20-6.30 12.0-18.0 37.0-51.0 80-97 140-440 Adult F 4.1-10.9 4.04-5.48 12.0-18.0 37.0-51.0 80-97 140-440 0 -1 Yr 5.0-20.0 3.9-5.9 15-18 MV: 44 MV: 91 MV: 277 2-9 Yr. 6.0-17.0 3.8-5.4 11-13 MV: 37 MV: 78 MV: 300 10 Yrs. 5.0-13.0 3.8-5.4 12-15 MV: 39 MV: 80 MV: 250 NOTE: * FOR ADULT BLACK MALES AND FEMALES, NORMAL WBC IS 2.9-7.7 K/ML * FOR ADULT BLACK MALES AND FEMALES, NORMAL RBC,HGB, AND HCT IS 5% LESS SOURCE FOR DATA: [employer] 1800 OPERATION MANUAL( AUTOMATED BLOOD COUNTS AND DIFF.) APPENDIX B-3 CHRONIC KIDNEY DISEASE STAGING PER NKF: MALE GFR INTERPRETATION: 20-49 YRS: >60 mL/min Normal 50-59 YRS: >56 mL/min Normal 60-69 YRS: >49 mL/min Normal 70-79 YRS: >42 mL/min Normal 80 and above >35 mL/min Normal FEMALE GRF INTERPRETATION: 20-39 YRS: >60 mL/min Normal 40-49 YRS: >58 mL/min Normal 50-59 YRS: >51 mL/min Normal 60-69 YRS: >45 mL/min Normal 70-79 YRS: >39 mL/min Normal 80 and above >32 mL/min Normal CL 102.9 mmol/L 98.0-107.0 [place] ([facility] NORMAL RANGES Age WBC RBC HGB HCT MCV PLT Adult M 4.1-10.9 4.20-6.30 12.0-18.0 37.0-51.0 80-97 140-440 Adult F 4.1-10.9 4.04-5.48 12.0-18.0 37.0-51.0 80-97 140-440 0 -1 Yr 5.0-20.0 3.9-5.9 15-18 MV: 44 MV: 91 MV: 277 2-9 Yr. 6.0-17.0 3.8-5.4 11-13 MV: 37 MV: 78 MV: 300 10 Yrs. 5.0-13.0 3.8-5.4 12-15 MV: 39 MV: 80 MV: 250 NOTE: * FOR ADULT BLACK MALES AND FEMALES, NORMAL WBC IS 2.9-7.7 K/ML * FOR ADULT BLACK MALES AND FEMALES, NORMAL RBC,HGB, AND HCT IS 5% LESS SOURCE FOR DATA: [employer] 1800 OPERATION MANUAL( AUTOMATED BLOOD COUNTS AND DIFF.) APPENDIX B-3 CHRONIC KIDNEY DISEASE STAGING PER NKF: MALE GFR INTERPRETATION: 20-49 YRS: >60 mL/min Normal 50-59 YRS: >56 mL/min Normal 60-69 YRS: >49 mL/min Normal 70-79 YRS: >42 mL/min Normal 80 and above >35 mL/min Normal FEMALE GRF INTERPRETATION: 20-39 YRS: >60 mL/min Normal 40-49 YRS: >58 mL/min Normal 50-59 YRS: >51 mL/min Normal 60-69 YRS: >45 mL/min Normal 70-79 YRS: >39 mL/min Normal 80 and above >32 mL/min Normal CA 9.2 mg/dL 8.6-10.2 [facility] NORMAL RANGES Age WBC RBC HGB HCT MCV PLT Adult M 4.1-10.9 4.20-6.30 12.0-18.0 37.0-51.0 80-97 140-440 Adult F 4.1-10.9 4.04-5.48 12.0-18.0 37.0-51.0 80-97 140-440 0 -1 Yr 5.0-20.0 3.9-5.9 15-18 MV: 44 MV: 91 MV: 277 2-9 Yr. 6.0-17.0 3.8-5.4 11-13 MV: 37 MV: 78 MV: 300 10 Yrs. 5.0-13.0 3.8-5.4 12-15 MV: 39 MV: 80 MV: 250 NOTE: * FOR ADULT BLACK MALES AND FEMALES, NORMAL WBC IS 2.9-7.7 K/ML * FOR ADULT BLACK MALES AND FEMALES, NORMAL RBC,HGB, AND HCT IS 5% LESS SOURCE FOR DATA: [employer] 1800 OPERATION MANUAL( AUTOMATED BLOOD COUNTS AND DIFF.) APPENDIX B-3 CHRONIC KIDNEY DISEASE STAGING PER NKF: MALE GFR INTERPRETATION: 20-49 YRS: >60 mL/min Normal 50-59 YRS: >56 mL/min Normal 60-69 YRS: >49 mL/min Normal 70-79 YRS: >42 mL/min Normal 80 and above >35 mL/min Normal FEMALE GRF INTERPRETATION: 20-39 YRS: >60 mL/min Normal 40-49 YRS: >58 mL/min Normal 50-59 YRS: >51 mL/min Normal 60-69 YRS: >45 mL/min Normal 70-79 YRS: >39 mL/min Normal 80 and above >32 mL/min Normal Alb 4.5 g/dL 3.4-4.8 [facility] NORMAL RANGES Age WBC RBC HGB HCT MCV PLT Adult M 4.1-10.9 4.20-6.30 12.0-18.0 37.0-51.0 80-97 140-440 Adult F 4.1-10.9 4.04-5.48 12.0-18.0 37.0-51.0 80-97 140-440 0 -1 Yr 5.0-20.0 3.9-5.9 15-18 MV: 44 MV: 91 MV: 277 2-9 Yr. 6.0-17.0 3.8-5.4 11-13 MV: 37 MV: 78 MV: 300 10 Yrs. 5.0-13.0 3.8-5.4 12-15 MV: 39 MV: 80 MV: 250 NOTE: * FOR ADULT BLACK MALES AND FEMALES, NORMAL WBC IS 2.9-7.7 K/ML * FOR ADULT BLACK MALES AND FEMALES, NORMAL RBC,HGB, AND HCT IS 5% LESS SOURCE FOR DATA: [employer] 1800 OPERATION MANUAL( AUTOMATED BLOOD COUNTS AND DIFF.) APPENDIX B-3 CHRONIC KIDNEY DISEASE STAGING PER NKF: MALE GFR INTERPRETATION: 20-49 YRS: >60 mL/min Normal 50-59 YRS: >56 mL/min Normal 60-69 YRS: >49 mL/min Normal 70-79 YRS: >42 mL/min Normal 80 and above >35 mL/min Normal FEMALE GRF INTERPRETATION: 20-39 YRS: >60 mL/min Normal 40-49 YRS: >58 mL/min Normal 50-59 YRS: >51 mL/min Normal 60-69 YRS: >45 mL/min Normal 70-79 YRS: >39 mL/min Normal 80 and above >32 mL/min Normal TP 6.8 g/dL 6.6-8.7 [facility] NORMAL RANGES Age WBC RBC HGB HCT MCV PLT Adult M 4.1-10.9 4.20-6.30 12.0-18.0 37.0-51.0 80-97 140-440 Adult F 4.1-10.9 4.04-5.48 12.0-18.0 37.0-51.0 80-97 140-440 0 -1 Yr 5.0-20.0 3.9-5.9 15-18 MV: 44 MV: 91 MV: 277 2-9 Yr. 6.0-17.0 3.8-5.4 11-13 MV: 37 MV: 78 MV: 300 10 Yrs. 5.0-13.0 3.8-5.4 12-15 MV: 39 MV: 80 MV: 250 NOTE: * FOR ADULT BLACK MALES AND FEMALES, NORMAL WBC IS 2.9-7.7 K/ML * FOR ADULT BLACK MALES AND FEMALES, NORMAL RBC,HGB, AND HCT IS 5% LESS SOURCE FOR DATA: [employer] 1800 OPERATION MANUAL( AUTOMATED BLOOD COUNTS AND DIFF.) APPENDIX B-3 CHRONIC KIDNEY DISEASE STAGING PER NKF: MALE GFR INTERPRETATION: 20-49 YRS: >60 mL/min Normal 50-59 YRS: >56 mL/min Normal 60-69 YRS: >49 mL/min Normal 70-79 YRS: >42 mL/min Normal 80 and above >35 mL/min Normal FEMALE GRF INTERPRETATION: 20-39 YRS: >60 mL/min Normal 40-49 YRS: >58 mL/min Normal 50-59 YRS: >51 mL/min Normal 60-69 YRS: >45 mL/min Normal 70-79 YRS: >39 mL/min Normal 80 and above >32 mL/min Normal Globulin 2.3 CALC [facility] ([facility] NORMAL RANGES Age WBC RBC HGB HCT MCV PLT Adult M 4.1-10.9 4.20-6.30 12.0-18.0 37.0-51.0 80-97 140-440 Adult F 4.1-10.9 4.04-5.48 12.0-18.0 37.0-51.0 80-97 140-440 0 -1 Yr 5.0-20.0 3.9-5.9 15-18 MV: 44 MV: 91 MV: 277 2-9 Yr. 6.0-17.0 3.8-5.4 11-13 MV: 37 MV: 78 MV: 300 10 Yrs. 5.0-13.0 3.8-5.4 12-15 MV: 39 MV: 80 MV: 250 NOTE: * FOR ADULT BLACK MALES AND FEMALES, NORMAL WBC IS 2.9-7.7 K/ML * FOR ADULT BLACK MALES AND FEMALES, NORMAL RBC,HGB, AND HCT IS 5% LESS SOURCE FOR DATA: [employer] 1800 OPERATION MANUAL( AUTOMATED BLOOD COUNTS AND DIFF.) APPENDIX B-3 CHRONIC KIDNEY DISEASE STAGING PER NKF: MALE GFR INTERPRETATION: 20-49 YRS: >60 mL/min Normal 50-59 YRS: >56 mL/min Normal 60-69 YRS: >49 mL/min Normal 70-79 YRS: >42 mL/min Normal 80 and above >35 mL/min Normal FEMALE GRF INTERPRETATION: 20-39 YRS: >60 mL/min Normal 40-49 YRS: >58 mL/min Normal 50-59 YRS: >51 mL/min Normal 60-69 YRS: >45 mL/min Normal 70-79 YRS: >39 mL/min Normal 80 and above >32 mL/min Normal A/G Ratio 2.0 [facility]C [facility] NORMAL RANGES Age WBC RBC HGB HCT MCV PLT Adult M 4.1-10.9 4.20-6.30 12.0-18.0 37.0-51.0 80-97 140-440 Adult F 4.1-10.9 4.04-5.48 12.0-18.0 37.0-51.0 80-97 140-440 0 -1 Yr 5.0-20.0 3.9-5.9 15-18 MV: 44 MV: 91 MV: 277 2-9 Yr. 6.0-17.0 3.8-5.4 11-13 MV: 37 MV: 78 MV: 300 10 Yrs. 5.0-13.0 3.8-5.4 12-15 MV: 39 MV: 80 MV: 250 NOTE: * FOR ADULT BLACK MALES AND FEMALES, NORMAL WBC IS 2.9-7.7 K/ML * FOR ADULT BLACK MALES AND FEMALES, NORMAL RBC,HGB, AND HCT IS 5% LESS SOURCE FOR DATA: [employer] 1800 OPERATION MANUAL( AUTOMATED BLOOD COUNTS AND DIFF.) APPENDIX B-3 CHRONIC KIDNEY DISEASE STAGING PER NKF: MALE GFR INTERPRETATION: 20-49 YRS: >60 mL/min Normal 50-59 YRS: >56 mL/min Normal 60-69 YRS: >49 mL/min Normal 70-79 YRS: >42 mL/min Normal 80 and above >35 mL/min Normal FEMALE GRF INTERPRETATION: 20-39 YRS: >60 mL/min Normal 40-49 YRS: >58 mL/min Normal 50-59 YRS: >51 mL/min Normal 60-69 YRS: >45 mL/min Normal 70-79 YRS: >39 mL/min Normal 80 and above >32 mL/min Normal Alp 85.3 U/L 35-129 [facility] NORMAL RANGES Age WBC RBC HGB HCT MCV PLT Adult M 4.1-10.9 4.20-6.30 12.0-18.0 37.0-51.0 80-97 140-440 Adult F 4.1-10.9 4.04-5.48 12.0-18.0 37.0-51.0 80-97 140-440 0 -1 Yr 5.0-20.0 3.9-5.9 15-18 MV: 44 MV: 91 MV: 277 2-9 Yr. 6.0-17.0 3.8-5.4 11-13 MV: 37 MV: 78 MV: 300 10 Yrs. 5.0-13.0 3.8-5.4 12-15 MV: 39 MV: 80 MV: 250 NOTE: * FOR ADULT BLACK MALES AND FEMALES, NORMAL WBC IS 2.9-7.7 K/ML * FOR ADULT BLACK MALES AND FEMALES, NORMAL RBC,HGB, AND HCT IS 5% LESS SOURCE FOR DATA: [employer] 1800 OPERATION MANUAL( AUTOMATED BLOOD COUNTS AND DIFF.) APPENDIX B-3 CHRONIC KIDNEY DISEASE STAGING PER NKF: MALE GFR INTERPRETATION: 20-49 YRS: >60 mL/min Normal 50-59 YRS: >56 mL/min Normal 60-69 YRS: >49 mL/min Normal 70-79 YRS: >42 mL/min Normal 80 and above >35 mL/min Normal FEMALE GRF INTERPRETATION: 20-39 YRS: >60 mL/min Normal 40-49 YRS: >58 mL/min Normal 50-59 YRS: >51 mL/min Normal 60-69 YRS: >45 mL/min Normal 70-79 YRS: >39 mL/min Normal 80 and above >32 mL/min Normal Alt (SGPT) 17 U/L 0-41 [facility] NORMAL RANGES Age WBC RBC HGB HCT MCV PLT Adult M 4.1-10.9 4.20-6.30 12.0-18.0 37.0-51.0 80-97 140-440 Adult F 4.1-10.9 4.04-5.48 12.0-18.0 37.0-51.0 80-97 140-440 0 -1 Yr 5.0-20.0 3.9-5.9 15-18 MV: 44 MV: 91 MV: 277 2-9 Yr. 6.0-17.0 3.8-5.4 11-13 MV: 37 MV: 78 MV: 300 10 Yrs. 5.0-13.0 3.8-5.4 12-15 MV: 39 MV: 80 MV: 250 NOTE: * FOR ADULT BLACK MALES AND FEMALES, NORMAL WBC IS 2.9-7.7 K/ML * FOR ADULT BLACK MALES AND FEMALES, NORMAL RBC,HGB, AND HCT IS 5% LESS SOURCE FOR DATA: [employer] 1800 OPERATION MANUAL( AUTOMATED BLOOD COUNTS AND DIFF.) APPENDIX B-3 CHRONIC KIDNEY DISEASE STAGING PER NKF: MALE GFR INTERPRETATION: 20-49 YRS: >60 mL/min Normal 50-59 YRS: >56 mL/min Normal 60-69 YRS: >49 mL/min Normal 70-79 YRS: >42 mL/min Normal 80 and above >35 mL/min Normal FEMALE GRF INTERPRETATION: 20-39 YRS: >60 mL/min Normal 40-49 YRS: >58 mL/min Normal 50-59 YRS: >51 mL/min Normal 60-69 YRS: >45 mL/min Normal 70-79 YRS: >39 mL/min Normal 80 and above >32 mL/min Normal Ast (Sgot) 22 U/L 0-40 [facility] NORMAL RANGES Age WBC RBC HGB HCT MCV PLT Adult M 4.1-10.9 4.20-6.30 12.0-18.0 37.0-51.0 80-97 140-440 Adult F 4.1-10.9 4.04-5.48 12.0-18.0 37.0-51.0 80-97 140-440 0 -1 Yr 5.0-20.0 3.9-5.9 15-18 MV: 44 MV: 91 MV: 277 2-9 Yr. 6.0-17.0 3.8-5.4 11-13 MV: 37 MV: 78 MV: 300 10 Yrs. 5.0-13.0 3.8-5.4 12-15 MV: 39 MV: 80 MV: 250 NOTE: * FOR ADULT BLACK MALES AND FEMALES, NORMAL WBC IS 2.9-7.7 K/ML * FOR ADULT BLACK MALES AND FEMALES, NORMAL RBC,HGB, AND HCT IS 5% LESS SOURCE FOR DATA: [employer] 1800 OPERATION MANUAL( AUTOMATED BLOOD COUNTS AND DIFF.) APPENDIX B-3 CHRONIC KIDNEY DISEASE STAGING PER NKF: MALE GFR INTERPRETATION: 20-49 YRS: >60 mL/min Normal 50-59 YRS: >56 mL/min Normal 60-69 YRS: >49 mL/min Normal 70-79 YRS: >42 mL/min Normal 80 and above >35 mL/min Normal FEMALE GRF INTERPRETATION: 20-39 YRS: >60 mL/min Normal 40-49 YRS: >58 mL/min Normal 50-59 YRS: >51 mL/min Normal 60-69 YRS: >45 mL/min Normal 70-79 YRS: >39 mL/min Normal 80 and above >32 mL/min Normal Tbili 0.73 mg/dL 0.0-1.2 [employer] ([facility] NORMAL RANGES Age WBC RBC HGB HCT MCV PLT Adult M 4.1-10.9 4.20-6.30 12.0-18.0 37.0-51.0 80-97 140-440 Adult F 4.1-10.9 4.04-5.48 12.0-18.0 37.0-51.0 80-97 140-440 0 -1 Yr 5.0-20.0 3.9-5.9 15-18 MV: 44 MV: 91 MV: 277 2-9 Yr. 6.0-17.0 3.8-5.4 11-13 MV: 37 MV: 78 MV: 300 10 Yrs. 5.0-13.0 3.8-5.4 12-15 MV: 39 MV: 80 MV: 250 NOTE: * FOR ADULT BLACK MALES AND FEMALES, NORMAL WBC IS 2.9-7.7 K/ML * FOR ADULT BLACK MALES AND FEMALES, NORMAL RBC,HGB, AND HCT IS 5% LESS SOURCE FOR DATA: [employer] 1800 OPERATION MANUAL( AUTOMATED BLOOD COUNTS AND DIFF.) APPENDIX B-3 CHRONIC KIDNEY DISEASE STAGING PER NKF: MALE GFR INTERPRETATION: 20-49 YRS: >60 mL/min Normal 50-59 YRS: >56 mL/min Normal 60-69 YRS: >49 mL/min Normal 70-79 YRS: >42 mL/min Normal 80 and above >35 mL/min Normal FEMALE GRF INTERPRETATION: 20-39 YRS: >60 mL/min Normal 40-49 YRS: >58 mL/min Normal 50-59 YRS: >51 mL/min Normal 60-69 YRS: >45 mL/min Normal 70-79 YRS: >39 mL/min Normal 80 and above >32 mL/min Normal Anion Gap 16 mmol/L [facility] NORMAL RANGES Age WBC RBC HGB HCT MCV PLT Adult M 4.1-10.9 4.20-6.30 12.0-18.0 37.0-51.0 80-97 140-440 Adult F 4.1-10.9 4.04-5.48 12.0-18.0 37.0-51.0 80-97 140-440 0 -1 Yr 5.0-20.0 3.9-5.9 15-18 MV: 44 MV: 91 MV: 277 2-9 Yr. 6.0-17.0 3.8-5.4 11-13 MV: 37 MV: 78 MV: 300 10 Yrs. 5.0-13.0 3.8-5.4 12-15 MV: 39 MV: 80 MV: 250 NOTE: * FOR ADULT BLACK MALES AND FEMALES, NORMAL WBC IS 2.9-7.7 K/ML * FOR ADULT BLACK MALES AND FEMALES, NORMAL RBC,HGB, AND HCT IS 5% LESS SOURCE FOR DATA: [employer] 1800 OPERATION MANUAL( AUTOMATED BLOOD COUNTS AND DIFF.) APPENDIX B-3 CHRONIC KIDNEY DISEASE STAGING PER NKF: MALE GFR INTERPRETATION: 20-49 YRS: >60 mL/min Normal 50-59 YRS: >56 mL/min Normal 60-69 YRS: >49 mL/min Normal 70-79 YRS: >42 mL/min Normal 80 and above >35 mL/min Normal FEMALE GRF INTERPRETATION: 20-39 YRS: >60 mL/min Normal 40-49 YRS: >58 mL/min Normal 50-59 YRS: >51 mL/min Normal 60-69 YRS: >45 mL/min Normal 70-79 YRS: >39 mL/min Normal 80 and above >32 mL/min Normal Osmolality-Calculated 271.8 [facility] ([facility] NORMAL RANGES Age WBC RBC HGB HCT MCV PLT Adult M 4.1-10.9 4.20-6.30 12.0-18.0 37.0-51.0 80-97 140-440 Adult F 4.1-10.9 4.04-5.48 12.0-18.0 37.0-51.0 80-97 140-440 0 -1 Yr 5.0-20.0 3.9-5.9 15-18 MV: 44 MV: 91 MV: 277 2-9 Yr. 6.0-17.0 3.8-5.4 11-13 MV: 37 MV: 78 MV: 300 10 Yrs. 5.0-13.0 3.8-5.4 12-15 MV: 39 MV: 80 MV: 250 NOTE: * FOR ADULT BLACK MALES AND FEMALES, NORMAL WBC IS 2.9-7.7 K/ML * FOR ADULT BLACK MALES AND FEMALES, NORMAL RBC,HGB, AND HCT IS 5% LESS SOURCE FOR DATA: [employer] 1800 OPERATION MANUAL( AUTOMATED BLOOD COUNTS AND DIFF.) APPENDIX B-3 CHRONIC KIDNEY DISEASE STAGING PER NKF: MALE GFR INTERPRETATION: 20-49 YRS: >60 mL/min Normal 50-59 YRS: >56 mL/min Normal 60-69 YRS: >49 mL/min Normal 70-79 YRS: >42 mL/min Normal 80 and above >35 mL/min Normal FEMALE GRF INTERPRETATION: 20-39 YRS: >60 mL/min Normal 40-49 YRS: >58 mL/min Normal 50-59 YRS: >51 mL/min Normal 60-69 YRS: >45 mL/min Normal 70-79 YRS: >39 mL/min Normal 80 and above >32 mL/min Normal eGFR 107 # [facility] ( [facility] NORMAL RANGES Age WBC RBC HGB HCT MCV PLT Adult M 4.1-10.9 4.20-6.30 12.0-18.0 37.0-51.0 80-97 140-440 Adult F 4.1-10.9 4.04-5.48 12.0-18.0 37.0-51.0 80-97 140-440 0 -1 Yr 5.0-20.0 3.9-5.9 15-18 MV: 44 MV: 91 MV: 277 2-9 Yr. 6.0-17.0 3.8-5.4 11-13 MV: 37 MV: 78 MV: 300 10 Yrs. 5.0-13.0 3.8-5.4 12-15 MV: 39 MV: 80 MV: 250 NOTE: * FOR ADULT BLACK MALES AND FEMALES, NORMAL WBC IS 2.9-7.7 K/ML * FOR ADULT BLACK MALES AND FEMALES, NORMAL RBC,HGB, AND HCT IS 5% LESS SOURCE FOR DATA: [facility] 1800 OPERATION MANUAL( AUTOMATED BLOOD COUNTS AND DIFF.) APPENDIX B-3 CHRONIC KIDNEY DISEASE STAGING PER NKF: MALE GFR INTERPRETATION: 20-49 YRS: >60 mL/min Normal 50-59 YRS: >56 mL/min Normal 60-69 YRS: >49 mL/min Normal 70-79 YRS: >42 mL/min Normal 80 and above >35 mL/min Normal FEMALE GRF INTERPRETATION: 20-39 YRS: >60 mL/min Normal 40-49 YRS: >58 mL/min Normal 50-59 YRS: >51 mL/min Normal 60-69 YRS: >45 mL/min Normal 70-79 YRS: >39 mL/min Normal 80 and above >32 mL/min Normal eGFR Non-Afr. [place] 92 # MEDENT ([facility] NORMAL RANGES Age WBC RBC HGB HCT MCV PLT Adult M 4.1-10.9 4.20-6.30 12.0-18.0 37.0-51.0 80-97 140-440 Adult F 4.1-10.9 4.04-5.48 12.0-18.0 37.0-51.0 80-97 140-440 0 -1 Yr 5.0-20.0 3.9-5.9 15-18 MV: 44 MV: 91 MV: 277 2-9 Yr. 6.0-17.0 3.8-5.4 11-13 MV: 37 MV: 78 MV: 300 10 Yrs. 5.0-13.0 3.8-5.4 12-15 MV: 39 MV: 80 MV: 250 NOTE: * FOR ADULT BLACK MALES AND FEMALES, NORMAL WBC IS 2.9-7.7 K/ML * FOR ADULT BLACK MALES AND FEMALES, NORMAL RBC,HGB, AND HCT IS 5% LESS SOURCE FOR DATA: [employer] 1800 OPERATION MANUAL( AUTOMATED BLOOD COUNTS AND DIFF.) APPENDIX B-3 CHRONIC KIDNEY DISEASE STAGING PER NKF: MALE GFR INTERPRETATION: 20-49 YRS: >60 mL/min Normal 50-59 YRS: >56 mL/min Normal 60-69 YRS: >49 mL/min Normal 70-79 YRS: >42 mL/min Normal 80 and above >35 mL/min Normal FEMALE GRF INTERPRETATION: 20-39 YRS: >60 mL/min Normal 40-49 YRS: >58 mL/min Normal 50-59 YRS: >51 mL/min Normal 60-69 YRS: >45 mL/min Normal 70-79 YRS: >39 mL/min Normal 80 and above >32 mL/min Normal Procedure Social History No Information Vital Signs ID Date Data Source UNK Name Value Range Interpretation Code Description Data Source(s) Respiratory rate 12 /min 12 /min MEDENT ( [facility], ) Body height 61 [in_i] 61 [in_i] MEDENT ([facility], ) 5'1" Body weight 165.00 [lb_av] 165.00 [lb_av] MEDEN T ([facility]) Body mass index (BMI) [Ratio] 31.2 kg/m2 31.2 k g/m2 MEDENT ([facility]) [place] body weight 105 [lb_av] 105 [lb_av] MEDEN T ([facility], ) Systolic blood pressure 126 mm[Hg] 126 mm[Hg] M EDENT ([facility] Diastolic blood pressure 78 mm[Hg] 78 mm[Hg] MED[facility] ([facility] Body temperature 98.3 [degF] 98.3 [degF] MED[facility] ([facility] Heart rate 86 /min 86 /min [facility] ([facility] Respiratory rate 18 /min 18 /min MED[facility] ( [facility] Body height 63 [in_i] 63 [in_i] MEDENT ([facility] 5'3" Body weight 176.00 [lb_av] 176.00 [lb_av] MEDEN T ([facility] [place] body weight 115 [lb_av] 115 [lb_av] MEDEN T ([facility] Body mass index (BMI) [Ratio] 31.2 kg/m2 31.2 k g/m2 MED[facility] ([facility] Oxygen saturation in Arterial blood by Pulse oximetry 97 % 97 % MEDENT ([facility] Body temperature 97.5 [degF] 97.5 [degF] MEDENT ([facility] ) Body height 61 [in_i] 61 [in_i] MEDENT ([facility] ) 5'1" Body weight 178.00 [lb_av] 178.00 [lb_av] MEDEN T ([facility] ) Body mass index (BMI) [Ratio] 33.6 kg/m2 33.6 k g/m2 MED[facility] ([facility] ) Body mass index (BMI) [Ratio] 31.2 kg/m2 31.2 k g/m2 MED[facility] ([facility], ) [place] body weight 105 [lb_av] 105 [lb_av] MEDEN T ([facility], ) Respiratory rate 12 /min 12 /min MED[facility] ( [facility], ) Body height 61 [in_i] 61 [in_i] MEDENT ([facility], ) 5'1" Body weight 165.00 [lb_av] 165.00 [lb_av] MEDEN T ([facility], ) Body weight 165.00 [lb_av] 165.00 [lb_av] MEDEN T ([facility], )
--- OUTSIDE RECORDS SUMMARY | 2020-12-25 16:45 | CCD | Continuity of Care Document ---
Author Author Delaney PITTS MD Organization Unknown Address [address] [place] [address] Phone [phone] Care Team Providers Care Insurance Auditor Name Role Phone Fili Jerome MD AUTM [phone] Tavon Fry MD AUTM [phone] Problems Active Problems Provider Date Pain radiating [...] Available Procedures Date Code Description Status 09/24/2020 57394 MRI Upper Extremity Any Joint Co mpleted 09/18/2020 99789 Office/Outpatient Established Lo w MDM 20-29 Min Completed 08/07/2020 56798 Office/Outpatient Established SF MDM 10-19 Min Completed 06/21/2020 21818 Physical Therapy Eval - Low Comp lexity Completed 06/05/2020 93037 Office/Outpatient Established Mo d MDM 30-39 Min Completed 06/05/2020 73380 X-Ray Hand Three Views Completed 06/05/2020 74119 X-Ray Wrist Complete Completed Medical Devices Description No Information Available Encounters Type Date Location Provider Dx Diagnosis Office Visit 09/18/2020 1:30p [facility] M25.53 1 Pain in right wrist Office Visit 08/07/2020 10:00a [facility] MD 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 DG Created [address] [facility], [address] [place] [address] [phone] Rodriguez Pitts MD PT BASED ON MED. [facility] TO PT DEPT. KATIA bowling [address] [facility], [address] [place] [address] [phone]
--- OUTSIDE RECORDS SUMMARY | 2020-12-25 16:45 | CCD | Continuity of Care Document ---
Author Author Delaney SWENSON PA-Hardy Organization Unknown Address [address] [place] [address] Phone [phone] Care Team Providers Care Director Of Strategy & Mobile Name Role Phone Fili Jerome MD AUTM [phone] Tavon Fry MD AUTM [phone] Problems Active Problems Provider Date Pain radiating [...] Available Procedures Date Code Description Status 10/14/2020 01639 Office/Outpatient Established Mo d MDM 30-39 Min Completed 09/24/2020 41506 MRI Upper Extremity Any Joint Co mpleted 09/18/2020 22601 Office/Outpatient Established Lo w MDM 20-29 Min Completed 08/07/2020 76607 Office/Outpatient Established SF MDM 10-19 Min Completed 06/21/2020 78951 Physical Therapy Eval - Low Comp lexity Completed 06/05/2020 79833 Office/Outpatient Established Mo d MDM 30-39 Min Completed 06/05/2020 10252 X-Ray Hand Three Views Completed 06/05/2020 99861 X-Ray Wrist Complete Completed Medical Devices Description [...] up:* after patient see's Dr. Crump at [facility] for Rt. wrist amaury with BMS. Functional Status Description No Information Available Mental Status Description No Information Available Referrals Refer to Dr Reason for Referral Status Appt Date Rodriguez Pitts MD MRI APPROVED PER [facility] FOR MRI OF RIGHT WRIST (78283) TO MRI. DG Created [address] [address] [phone] Rodriguez Pitts MD PT BASED ON MED. [facility] TO PT DEPT. NT [place] [address] [address] [phone]
--- OUTSIDE RECORDS SUMMARY | 2020-12-25 16:45 | CCD ---
Continuity of Care Document (CCD) Created on: 11/21/2020 Delaney Soria External Reference #: [id number] : [id number] Sex: Female Author Delaney Doshi M.D. Organization Unknown Address [address] [place] [address] Phone [phone] Care Team Providers Care Biztalk Architect Name Role Phone Parish Walter Javi AUTM [phone] Problems Active Problems Provider Date Pain radiating to right arm Tavon Fry M.D. Onset: 10/2013 Social History Type Date Description Comments Sex Unknown Tobacco Use Start: Unknown End: Unknown Patient is a former smoker Allergies, Adverse Reactions, Alerts Active Allergies Criticality Reaction | Severity Comments Date Methocarbamol Unable to assess criticality Hives 01/12/2017 Inactive Allergies NKDA Unable to assess criticality 10/13/2013 Medications Active Medications SIG Qnty Indications Ordering Provide r Date Gabapentin 100mg Capsules take 2 capsules by mouth at suppertime. 60steven Fry M.D. Medrol 4mg TBPK take 6 tabs in the morning on day 1, then reduce by one tab each day till completed over 6 days. 21prudence Fry M.D. 02/11/2016 Cyanocobalamin 1000mcg/ML Solution 1ml injection intramuscular weekly for 4 weeeks then monthly. 7prudence Fry M.D. 12/29/2013 B-12 1000mcg Tablets ER 1 by mouth bid 60tawilson Fry M.D. 12/29/2013 Immunizations Description No Information Available Vital Signs Date Vital Result Comment 11/19/2020 11:32am Respiratory Rate 12 /min Height 61 inches 5'1" Weight 165.00 lb BMI (Body Mass Index) 31.2 kg/m2 [place] Body Weight 105 lb 05/16/2020 3:22pm Respiratory Rate 12 /min Height 61 inches 5'1" Weight 165.00 lb BMI (Body Mass Index) 31.2 kg/m2 [place] Body Weight 105 lb Results Description No Information Available Procedures Date Code Description Status 11/19/2020 86291 Phone Evaluation/Management Phys ician 11-20 Mins Completed 05/29/2020 22416 Nerve Conduction 7-8 Studies Com pleted 05/29/2020 72031 Needle Electromyography Complete , Five Or More Muscles Studied Completed Medical Devices Description No Information Available Encounters Type Date Location Provider Dx Diagnosis Office Visit 11/19/2020 11:15a [facility] [place] Tavon abdul M.D. M79.605 Pain in left leg Assessments Date Code Description Provider 11/19/2020 M79.605 Pain in left leg Tavon Fry M.D. 05/29/2020 M79.605 Pain in left leg Tavon Fry M.D. 05/29/2020 M79.604 Pain in right leg Tavon bridges M.D. 05/29/2020 M79.602 Pain in left arm Tavon Fry M.D. 05/29/2020 M79.601 Pain in right arm Tavon bridges M.D. 05/29/2020 M25.541 Pain in joints of right hand Rob Fry M.D. 05/29/2020 R20.2 Paresthesia of skin Tavon abdul M.D. Plan of Treatment Future Appointment(s):* 03/04/2021 2:45 pm - Tavon Fry M.D. at Main office [facility] [place] Functional Status Description No Information Available Mental Status Description No Information Available Referrals Refer to Reason for Referral Status Appt Jean Walter M.D. RIGHT HAND PAIN Created [facility] [address] [facility], [address] [place] [address]
--- NOTE | 2020-12-25 17:44 | REP ---
INDICATION: Thumb injury COMPARISON: None. TECHNIQUE: Four views right 1st digit. FINDINGS: There is no evidence of acute fracture, dislocation, or intrinsic bone disease. IMPRESSION: No fracture or dislocation. <Electronically signed by Mayco Hill > 12/25/20 1032
--- OUTSIDE RECORDS SUMMARY | 2020-12-25 19:15 | CCD ---
Author Author [facility] Organization [facility] Address Unknown Phone Unavailable Care Team Providers Care Supervisor Roving Department Name Role Phone Jasmeet Pitts MD Unavailable Unavailable Jasmeet Pitts MD Unavailable Unavailable Jasmeet Pitts MD Unavailable Unavailable Jasmeet Pitts MD Unavailable Unavailable Jasmeet Pitts MD Unavailable Unavailable Jasmeet Pitts MD Unavailable Unavailable Jasmeet Pitts MD Unavailable Unavailable Jasmeet Pitts MD Unavailable Unavailable Jasmeet Pitts MD Unavailable Unavailable Jasmeet Pitts MD Unavailable Unavailable Jasmeet Pitts MD Unavailable Unavailable Emilee MENDOZA MD Unavailable [...] Unavailable Unavailable Emilee MENDOZA MD Unavailable Unavailable Mandappa, Mely CASAC Unavailable Unavailable Mandappa, Mely CASAC Unavailable Unavailable Mandappa, Mely CASAC Unavailable Unavailable Mandappa, Mely CASAC Unavailable Unavailable Mani Swenson PA Unavailable Unavailable [...] Unavailable Swenson, M Barratt PA Unavailable Unavailable MYRA, Gwen REYNA MD Unavailable Unavailable MYRA, Gwen REYNA MD Unavailable Unavailable MYRA, B AXEL WALDRON Unavailable Unavailable MYRA, Gwen REYNA MD Unavailable Unavailable MYARGwen MD Unavailable Unavailable MYRAGwen MD Unavailable Unavailable MYRAGwen MD Unavailable Unavailable MYRAGwen MD Unavailable Unavailable MYRA, Gwen REYNA MD Unavailable Unavailable MYRA, Gwen REYNA MD Unavailable Unavailable MYRAGwen MD Unavailable Unavailable [...] Unavailable MYRA, Gwen REYNA MD Unavailable Unavailable MYRAGwen MD Unavailable Unavailable [...] Unavailable MYRA, Gwen REYNA MD Unavailable Unavailable MYRAGwen PURCELL MD Unavailable Unavailable MYRA, Gwen REYNA MD [...] Unavailable Unavailable Malou Fry MD Unavailable Unavailable Re-disclosure Warning The records [...] is protected by Article 27-F of the [facility] Public Health law. If you continue you may have access to information: Regarding HIV / AIDS; Provided by facilities licensed or operated by the [facility] Office of Mental Health; or Provided by the [facility] Office for People With Developmental Disabilities. If such information is present, then the following [facility] mandated warning applies: This information has been [...] law may result in a fine or mcfp sentence or both. A general authorization for the release of medical or other information is NOT sufficient authorization for further disc losure. Allergies and Adverse Reactions Type Description Substance Reaction Status Data Source(s ) Propensity to adverse reactions NO KNOWN ALLERGIES NO KNOWN [facility] Family History Family Member Name Family Member Gender Family Member Status Date o f Status Description Data Source(s) Unknown Male Problem [facility] ([facility]) Unknown Unknown Problem [facility] ([facility] ) maternal GM age late 50s Unknown Unknown Problem [facility] (Derrek Lindquist [facility], ) Encounters Encounter Providers Location Date Indications Data Source(s ) Outpatient Attender: AXEL RENTERIA MDReferrer: Rodriguez Pitts MD [id number] 12/06/2020 12:00:00 AM EDT [facility] Office Visit Attender: Tavon Fry MD [facility] 11/19/2020 11:15:00 AM EDT [facility] ([facility]) Recurring Patient Referrer: RAFI MENDOZA MD 10/25/2020 0 3:03:02 PM EDT [facility] Recurring Patient Referrer: Mely Daniel CASAC 10/25/2020 02:14:36 PM EDT [facility] OFFICE OUTPATIENT VISIT 15 MINUTES Attender: Thaddeus VELA Physical Therapy 10/14/2020 03:15:00 PM EDT [facility] ([facility]) OFFICE OUTPATIENT VISIT 15 MINUTES Attender: Rodriguez Pitts MD P hysical Therapy 09/18/2020 01:30:00 PM EDT [facility] ([facility]) Outpatient Attender: RAFI MENDOZA MD [facility] 04/2020 11:30:00 AM EDT [facility] Outpatient Attender: Rodriguez Pitts MD Physical Therapy 04/2020 10:00:00 AM EDT [facility] ([facility]) Outpatient Attender: Rodriguez Pitts MD Physical Therapy 04:15:00 PM EDT [facility] ([facility]) Office Visit Attender: Tavon Fry MD [facility] 05/16/2020 01:45:00 PM EST [facility] ([facility]) Office Visit Attender: Tavon Fry MD [facility] 01/15/2020 01:30:00 PM EST [facility] ([facility]) Immunizations Vaccine Date Status Description Data Source(s) COVID-19 VACCINE Moderna 06/27/2020 12:00:00 AM EDT completed NYSIIS Vaccine Series Complete: YESThis Data wa s Submitted to [facility] Via [email or web address]. COVID-19 VACCINE Moderna 05/30/2020 12:00:00 AM EDT completed NYSIIS Vaccine Series Complete: NOThis Data was Submitted to [facility] Via [email or web address]. Medications Medication Brand Name Start Date Product [...] type / Coverage type Policy ID Covered alliance party ID Covered alliance party's relationship to townsend Policy Townsend Plan Information [facility] (O) [id number] Self [id number] [facility] U [id number] Self [id number] [facility] U [id number] Self [id number] Workers Compensation Workers Compensation [id number] Self Workers Compensation Workers Compensation [id number] Self [facility] [id number] SP [id number] [facility] [id number] SP [id number] [facility] Health Maintenance Organization (HMO) [id number] Self [id number] [place] Health Maintenance Organization (O) [id number] Self [id number] [facility] Medigap Part B [id number] Self [id number] [employer] Part B [id number] Self [id number] [facility] ([facility]) O [id number] S [id number] SELF PAY UNAVAILABLE SP UNAVAILA BLE [place] [facility] Health Maintenance Organization (HMO) [id number] Self SELF PAY P [id number] S [facility] Part B [id number] Self [employer] Commercial [id number] Self [employer] [id number] SP [id number] [employer] [id number] SP [id number] [employer] [id number] SP [id number] [facility] DEPT OF [place] [id number] SP [id number] UNITED HEALTHCARE [id number] SP [id number] BCBS EMPIRE PAVEL DIV [id number] SP [id number] [place] Plan F [id number] SELF [id number] UNITED HEALTHCARE [id number] SP [id number] BCBS EMPIRE PAVEL DIV [id number] SP [id number] ANSI-Commercial [id number] ANSI-Commercial [id number] [facility] [id number] Problems, Conditions, and Diagnoses No Information Surgeries/Procedures Procedure Description Date Indications Data Source(s) PHYSICIAN TELEPHONE EVALUATION 11-20 MIN 11/19/2020 12 :00:00 AM EDT [facility] ([facility] ) OFFICE OUTPATIENT VISIT 15 MINUTES 10/14/2020 12:00:00 AM EDT [facility] ([facility] OFFICE OUTPATIENT VISIT 25 MINUTES 10/14/2020 12:00:00 AM EDT [facility] ([facility] MRI Upper Extremity Any Joint 09/24/2020 12:00:00 AM E DT [facility] ([facility] OFFICE OUTPATIENT VISIT 15 MINUTES 09/18/2020 12:00:00 AM EDT [facility] ([facility] OFFICE OUTPATIENT VISIT 25 MINUTES 09/18/2020 12:00:00 AM EDT [facility] ([facility] OFFICE OUTPATIENT VISIT 10 MINUTES 08/07/2020 12:00:00 AM EDT [facility] ([facility] ) Physical Therapy Eval - Low Complexity 06/21/2020 12:0 0:00 AM EDT [facility] ([facility] ) RADEX WRIST COMPLETE MINIMUM 3 VIEWS 06/05/2020 12:00: 00 AM EDT [facility] ([facility] RADEX HAND MINIMUM 3 VIEWS 06/05/2020 12:00:00 AM EDT [facility] ([facility] ) OFFICE OUTPATIENT VISIT 25 MINUTES 06/05/2020 12:00:00 AM EDT [facility] ([facility] ) Needle electromyography, each extremity, with related paraspinal areas, when performed, done with nerve conduction, amplitude and latency/velocity study; complete, five or more muscles studied, innervated by three or more nerves or four or more spinal levels (list separately in addition to the code for primary procedure). 05/29/2020 12:00:00 AM EDT MEDEN T ([facility], ) 87609 Nerve conduction studies 7-8 studies NEW 201205/29/2020 12:00:00 AM EDT [facility] ([facility] ) NON-INVASIVE PHYSIOLOGIC STUDY EXTREMITY 3 LEVLS 12/21 12:00:00 AM EDT [facility] ([facility] ) NON-INVASIVE PHYSIOLOGIC STUDY EXTREMITY 3 LEVLS 12/21 12:00:00 AM EDT [facility] ([facility], ) NON-INVASIVE PHYSIOLOGIC STUDY EXTREMITY 3 LEVLS 12/21 12:00:00 AM EDT [facility] ([facility], ) NON-INVASIVE PHYSIOLOGIC STUDY EXTREMITY 3 LEVLS 12/21 12:00:00 AM EDT [facility] ([facility], ) TSTG ANS FUNCJ CARDIOVAGAL INNERVAJ PARASYMP 0 12:00:00 AM EDT [facility] ([facility], ) TSTG ANS FUNCJ CARDIOVAGAL INNERVAJ PARASYMP 0 12:00:00 AM EDT [facility] ([facility], ) TESTING AUTONOMIC NERVOUS SYSTEM FUNCTION 12/22/2019 1 2:00:00 AM EDT [facility] ([facility]) TESTING AUTONOMIC NERVOUS SYSTEM FUNCTION 12/22/2019 1 2:00:00 AM EDT [facility] ([facility], ) Results ID Date Data Source [id number] 12/08/2020 08:17:10 AM EDT [facility] Name Value Range Interpretation Code Description Data Bertha rce(s) Supporting Document(s) Progress Note [facility] WXPMJf1cUfCXWhEb60/MHAqsOJPyq1XiCQsyBNk7SKuhWJFqZ1PrVUJ3uY1sIOO8QEkABkTyYmMiYHTg lbm [file] acIqH/logistics intern/GaSselwd9yYO1S0FIPghxdWhhyxV8hEp9 [file] care worker+O7IgGZ3+hLLO6eBoF2wUVy+FX70szFdR4TM4862gkrc63nnmMcFL70Nywf/sF+/o9aGvfdt43d+t6 [file] AgICAgICAgICAgICAgICAgICAgICAgICAgICAgICAgICAgICAgICAgICAgICAgICAgICAgICAgICAgIC VoHLFiLGQqXLClOGHcNZIfKDKcTKAtIW3DXNLhTQXrPTFaUNLaRQSyCGIbMDOvIIBcSHTpIPPoWIFxQK AgICAgICAgICAgICAgICAgICAgICAgICAgICAgICAg ZXSjGCNdKWXfKPHkIEJqCZMgOTHpHNYdOQOsYPGyINKqRH3OLOTuTHHvADQkEQFhMVPdLCIpPAKyTOEp ICAgICAgICAgICAgICAgICAgICAgICAgICAgICAgICAgICAgICAgICAgICAgICAgICAgICAgICAgICAg KWIlPAPzZHQfLLUmNLRoJD8JFYZcDZWcZTMkUTDqJT AgICAgICAgICAgICAgICAgICAgICAgICAgICAgICAgICAgICAgICAgICAgICAgICAgICAgICAgICAgIC WjEBMoONNbLUTjQAUhSHOhIZCrRGDbKRChOK3FTBMhNRHoADHhIUGxCIHdZXUfYQTzAANdFUVyXABpCB AgICAgICAgICAgICAgICAgICAgICAgICAgICAgICAg AVSaSXRzGYGdIEHgHGVjJYAqCAGhTTClVUJuDMHxCKSjYJByOO5EBVIxIGKtKUSdZLBuBNZiOXPfGTPk ICAgICAgICAgICAgICAgICAgICAgICAgICAgICAgICAgICAgICAgICAgICAgICAgICAgICAgICAgICAg UXGfQYLwNMRuZLAdIMHkZSCeNX7AVMQbUKXlNQIjFR AgICAgICAgICAgICAgICAgICAgICAgICAgICAgICAgICAgICAgICAgICAgICAgICAgICAgICAgICAgIC LnLJDeGHPiKXSjRKGpOWEoRCPrEERhDDKjMVOxUT6ODMTtGLMnPMHmEKByXPTnRVXsMOAdIAKdCJDvHS AgICAgICAgICAgICAgICAgICAgICAgICAgICAgICAg AHVkLKJaGOTsNQMwTEPaFPYpTXMkXACzNLSvKOIbBRFyFVTeNRRkNZ5IFBNoXNVoVXJqOAChMKOhZDBc ICAgICAgICAgICAgICAgICAgICAgICAgICAgICAgICAgICAgICAgICAgICAgICAgICAgICAgICAgICAg YMMzWEPiXQQvAKSeABEcMJRmDEDjGU6AORAvBTOtSS AgICAgICAgICAgICAgICAgICAgICAgICAgICAgICAgICAgICAgICAgICAgICAgICAgICAgICAgICAgIC JzHGYkJIUlEEFcOKPcKNKrAWQjHHDvLANoJGIuGRJlNB1YZC65lWAta5P3RJAsZF3rieb/Uq5HHCjobj RfiFPwWV8NWoWbKF5axi4WClPeUE4vrr2JYBuZBvGs Q2I0zAFrSIIbBGIUUhFdZ00dTWicWk17GPrwKVGfOkKmRAk9Sv2IUaFnW4fhJSYzTvF8XXQaPlHhMBkj OD6Wh4IrrQEiEKx+Oe5PYM2lr5PrHCdnDWHhZA0cmf6YCZxPQmRwS6EivhZ9VDYyHEIjWk8FKZKdQHKb iZNsLUJkQQUPRqVdQ1PmbY48JEAEFl8+DQplbmRvYm wBMuBcVUYvi2JaAZv5LL8SUREfIHg7kLQeFAUoZ9Tap5TeSz42TZHeQkywVf4qHXnlNjL3llriTLFxCT NcZEZpDO2zDSIaDBN2BoZ7GIZMTW0FKIPyRIRicOApDEUpAKEUJJ7DRYtcBKN2ADUxmzSsoBQlFZuaPV 9QYXJlbnQgMTkgMCBSDQo+Lw3RLI2tt5TfOXcwIDOy FE8ywn0UILvRIuEoI8L1cKTuV6H4FTbaGs4VAJOlVNZiAHvkZJUGDLstXG7KEA6mizY4ES8CrTUmNWQe BKEozNPeAHf6X65cjSIwPQieTW3JQRY+Janet+Gh3YCZAyIXNtGTWmBdCoLWXULkQiZ7QaH9VDp0VmN9Uj VT93zCrokcSwCBqyOB8JIJ5zEPZrVFXTQX8ZiODlxU 0zpdSiZINxTVZUVgDzF58xeFJxDPDaPUH8VGXeNm1FGTHdN8GcndNqlDyhzeWlMDVcATLWSK7MXVkxkx HmwQTahRozTO64iOuiNA5FWs9QPuJxJF0rku6KyBBkSa9MHNGlDb7DMMZnDRXjIINePBQ8ULCxTnIhPI ujQSKjAMDsHIX4AQTqDWWvZW2DUhSeXXHaWYq4Qjzg JVGbQLGyso3VJJOiIHJhWCY6ZsDtWNIhWYOiPBzjRYGqAKLoVUK6NIRyDZEtAC9IXcUcTGAeKCJmHFSe FDNlUGCqpc0TPFSjNGEdGhG9OLTdVFGbZCVlZLenOMUqGYJ3NWP1AXUyOYLgUQ7OZeHzEOZzWAU1ZKSs MDBuFAShux0WVEUbSDTiEYluKaYjNCXuKVIzTYhjCF GiQXS3UQqrLMFbBDJdHL5UMfNuKRKvZBUwWWHxJKKuRIZvgn9NOHGqJXLgGtC2AELnBZHgBWWzKQmtTH NfNFD2EuQ7KLXmPKTwEQ9RRcXvUKUvIFf0ZOKiMUKeGCXjge2FTGDaCSMpBWV8ZVOnMHXcKKFjZKgxCP MaMLZ9WNYfJULuWDOrOE6HGqEcZALzROm3IIZwRNHd OYMrmw6CAUAtRERqDDa9OkUdBKGtHUMuQXxjYVAuPTOtIiw2GVCbYSPwYA7IItWxWQKzFaW9IKRtKJTf WLRzsq1YFVTyBTZwOKDaKXQkWWHjSGKxZAz4ttQxxYHtBMb6JQ9RH7GrwuBnQkLHZa2Mf273XUMhIZUd Do5XT4pjCd1qCBSrSIDMOk8GRDw9XuW7OoyoXtLpQV cuSyMwITZlNsCbH9JtVQo0PTKoHhU+WFt1VKccG9T8QVZfYCW8QwVhPGSoPZRoOTFxVwniWXL2UC7rLV ANCj4+EKtvuBVllYbjNZMDDxIoKKU7CWwfQNEKEh2A ID Date Data Source [id number] 08/07/2020 12:17:00 PM EDT [facility] ([facility] Name Value Range Interpretation Code Description Data Bertha rce(s) Supporting Document(s) Thyrotropin [Units/volume] in Serum or Plasma 3.059 ulU/mL 0.60-4.8 [facility] ([facility] ID Date Data Source [id number] 08/07/2020 12:16:00 PM EDT [facility] ([facility] Name Value Range Interpretation Code Description Data Bertha rce(s) Supporting Document(s) WBC 6.2 10E3/uL 4.1-10.9 [facility] ([facility] NORMAL RANGES Age WBC RBC [...] HCT IS 5% LESS SOURCE FOR DATA: [employer] 1800 OPERATION MANUAL( AUTOMATED BLOOD COUNTS AND [...] >32 mL/min Normal RBC 4.57 10E6/uL 4.20-6.30 [facility] NORMAL RANGES Age WBC RBC [...] HCT IS 5% LESS SOURCE FOR DATA: [employer] 1800 OPERATION MANUAL( AUTOMATED BLOOD COUNTS AND [...] >32 mL/min Normal HGB 14.7 g/dL 12.0-18.0 [facility] NORMAL [...] HCT IS 5% LESS SOURCE FOR DATA: [employer] 1800 OPERATION MANUAL( AUTOMATED BLOOD COUNTS AND [...] >32 mL/min Normal MCV 91.0 fL 80.0-97.0 [facility] ([facility] NORMAL [...] HCT IS 5% LESS SOURCE FOR DATA: [employer] 1800 OPERATION MANUAL( AUTOMATED BLOOD COUNTS AND [...] >32 mL/min Normal HCT 41.6 % 37.0-51.0 [facility] NORMAL [...] HCT IS 5% LESS SOURCE FOR DATA: [employer] 1800 OPERATION MANUAL( AUTOMATED BLOOD COUNTS AND [...] MCH 32.2 pg 26.0-32.0 Above high normal [facility] ([facility] NORMAL RANGES Age WBC RBC [...] HCT IS 5% LESS SOURCE FOR DATA: [employer] 1800 OPERATION MANUAL( AUTOMATED BLOOD COUNTS AND [...] >32 mL/min Normal PLT 294 10E3/uL 140-440 [facility] ([place] NORMAL RANGES Age WBC RBC HGB [...] HCT IS 5% LESS SOURCE FOR DATA: [employer] 1800 OPERATION MANUAL( AUTOMATED BLOOD COUNTS AND [...] >32 mL/min Normal MCHC 35.3 g/dL 31.0-36.0 [facility] ([facility] NORMAL RANGES Age [...] HCT IS 5% LESS SOURCE FOR DATA: [employer] 1800 OPERATION MANUAL( AUTOMATED BLOOD COUNTS [...] >32 mL/min Normal RDW-CV 12.3 % 11.5-14.5 [facility] ([facility] NORMAL RANGES [...] HCT IS 5% LESS SOURCE FOR DATA: [employer] 1800 OPERATION MANUAL( AUTOMATED BLOOD COUNTS [...] >32 mL/min Normal Neut% 57.7 % 37.0-92.0 [facility] ([facility] NORMAL RANGES [...] HCT IS 5% LESS SOURCE FOR DATA: [employer] 1800 OPERATION MANUAL( AUTOMATED BLOOD COUNTS AND [...] >32 mL/min Normal Lym% 34.9 % 10.0-58.5 [facility] ([facility] NORMAL [...] HCT IS 5% LESS SOURCE FOR DATA: [employer] 1800 OPERATION MANUAL( AUTOMATED BLOOD COUNTS AND [...] >32 mL/min Normal Neut# 3.5 % 2.0-7.8 [facility] ([facility] NORMAL RANGES Age [...] HCT IS 5% LESS SOURCE FOR DATA: [employer] 1800 OPERATION MANUAL( AUTOMATED BLOOD COUNTS AND [...] >32 mL/min Normal MXD% 7.4 % 0.1-24.0 [facility] ([facility] NORMAL [...] HCT IS 5% LESS SOURCE FOR DATA: [employer] 1800 OPERATION MANUAL( AUTOMATED BLOOD COUNTS AND [...] >32 mL/min Normal Lym# 2.2 10E3/uL 0.6-4.1 [facility] ([facility] NORMAL RANGES Age WBC RBC [...] HCT IS 5% LESS SOURCE FOR DATA: [employer] 1800 OPERATION MANUAL( AUTOMATED BLOOD COUNTS AND [...] >32 mL/min Normal MPV 9.1 fL 9.0-13.0 [facility] ([facility] NORMAL [...] HCT IS 5% LESS SOURCE FOR DATA: [employer] 1800 OPERATION MANUAL( AUTOMATED BLOOD COUNTS AND [...] >32 mL/min Normal MXD# 0.5 10E3/uL 0.0-1.8 [facility] ([facility] NORMAL RANGES Age WBC RBC [...] HCT IS 5% LESS SOURCE FOR DATA: [employer] 1800 OPERATION MANUAL( AUTOMATED BLOOD COUNTS AND [...] >32 mL/min Normal ID Date Data Source [id number] 08/07/2020 12:16:00 PM EDT [facility] ([facility] Name Value Range Interpretation Code Description Data Bertha rce(s) Supporting Document(s) Glu 113 mg/dL 70-110 Above high normal [facility] ([facility] NORMAL RANGES Age WBC RBC [...] >32 mL/min Normal BUN 9 mg/dL 8- [facility] ([facility] NORMAL RANGES Age [...] HCT IS 5% LESS SOURCE FOR DATA: [employer] 1800 OPERATION MANUAL( AUTOMATED BLOOD COUNTS AND [...] >32 mL/min Normal Creat 0.8 mg/dL 0.5-1.0 [facility] ([facility] NORMAL [...] HCT IS 5% LESS SOURCE FOR DATA: [employer] 1800 OPERATION MANUAL( AUTOMATED BLOOD COUNTS AND [...] above >32 mL/min Normal BUN/Creatinine Ratio 11.1 [facility] ([facility] NORMAL RANGES Age [...] HCT IS 5% LESS SOURCE FOR DATA: [employer] 1800 OPERATION MANUAL( AUTOMATED BLOOD COUNTS AND [...] >32 mL/min Normal K 4.2 mmol/L 3.5-5.1 [facility] ([facility] NORMAL RANGES [...] HCT IS 5% LESS SOURCE FOR DATA: [employer] 1800 OPERATION MANUAL( AUTOMATED BLOOD COUNTS AND [...] >32 mL/min Normal Na 136 mmol/L 136-145 [facility] ([facility] NORMAL RANGES Age [...] HCT IS 5% LESS SOURCE FOR DATA: [employer] 1800 OPERATION MANUAL( AUTOMATED BLOOD COUNTS AND [...] Co2 21.2 mmol/L 22.0-29.0 Below low normal [facility] ([facility] NORMAL RANGES Age [...] HCT IS 5% LESS SOURCE FOR DATA: [employer] 1800 OPERATION MANUAL( AUTOMATED BLOOD COUNTS AND [...] >32 mL/min Normal CL 102.9 mmol/L 98.0-107.0 [facility] ([facility] NORMAL RANGES Age WBC RBC HGB [...] HCT IS 5% LESS SOURCE FOR DATA: [employer] 1800 OPERATION MANUAL( AUTOMATED BLOOD COUNTS AND [...] >32 mL/min Normal CA 9.2 mg/dL 8.6-10.2 [facility] ([facility] NORMAL RANGES Age [...] HCT IS 5% LESS SOURCE FOR DATA: [employer] 1800 OPERATION MANUAL( AUTOMATED BLOOD COUNTS AND [...] >32 mL/min Normal Alb 4.5 g/dL 3.4-4.8 [facility] ([facility] NORMAL RANGES Age [...] >32 mL/min Normal TP 6.8 g/dL 6.6-8.7 [facility] ([facility] NORMAL RANGES [...] HCT IS 5% LESS SOURCE FOR DATA: [employer] 1800 OPERATION MANUAL( AUTOMATED BLOOD COUNTS [...] above >32 mL/min Normal Globulin 2.3 [facility]C [facility] NORMAL RANGES Age [...] HCT IS 5% LESS SOURCE FOR DATA: [employer] 1800 OPERATION MANUAL( AUTOMATED BLOOD COUNTS AND [...] >32 mL/min Normal A/G Ratio 2.0 CALC [facility] ([facility] NORMAL RANGES Age [...] HCT IS 5% LESS SOURCE FOR DATA: [employer] 1800 OPERATION MANUAL( AUTOMATED BLOOD COUNTS AND [...] >32 mL/min Normal Alp 85.3 U/L 35-129 [facility] NORMAL RANGES Age [...] HCT IS 5% LESS SOURCE FOR DATA: [employer] 1800 OPERATION MANUAL( AUTOMATED BLOOD COUNTS AND [...] mL/min Normal Alt (SGPT) 17 U/L 0-41 [facility] ([facility] NORMAL RANGES Age WBC RBC [...] HCT IS 5% LESS SOURCE FOR DATA: [employer] 1800 OPERATION MANUAL( AUTOMATED BLOOD COUNTS AND [...] Normal Ast (Sgot) 22 U/L 0-40 [facility] NORMAL RANGES Age WBC RBC [...] HCT IS 5% LESS SOURCE FOR DATA: [employer] 1800 OPERATION MANUAL( AUTOMATED BLOOD COUNTS AND [...] >32 mL/min Normal Tbili 0.73 mg/dL 0.0-1.2 [facility] ([facility] NORMAL RANGES [...] HCT IS 5% LESS SOURCE FOR DATA: [employer] 1800 OPERATION MANUAL( AUTOMATED BLOOD COUNTS AND [...] >32 mL/min Normal Anion Gap 16 mmol/L [facility] ([facility] NORMAL RANGES Age [...] HCT IS 5% LESS SOURCE FOR DATA: [employer] 1800 OPERATION MANUAL( AUTOMATED BLOOD COUNTS AND [...] mL/min Normal Osmolality-Calculated 271.8 [facility]C [facility] ([facility] NORMAL RANGES Age [...] HCT IS 5% LESS SOURCE FOR DATA: [employer] 1800 OPERATION MANUAL( AUTOMATED BLOOD COUNTS AND [...] mL/min Normal eGFR 107 # [facility] ( [facility] NORMAL RANGES Age [...] HCT IS 5% LESS SOURCE FOR DATA: [employer] 1800 OPERATION MANUAL( AUTOMATED BLOOD COUNTS AND [...] and above >32 mL/min Normal eGFR Non-Afr. Bangl[place]hi 92 # MEDENT ([facility] NORMAL RANGES Age WBC RBC HGB HCT MCV PLT Adult M 4.1-10.9 4.20-6.30 12.0-18.0 37.0-51.0 80-97 140-440 Adult F 4.1-10.9 4.04-5.48 12.0-18.0 37.0-51.0 80- 140-440 0 -1 Yr 5.0-20.0 3.9-5.9 15-18 [...] rate 12 /min 12 /min MEDENT ( [facility], ) Body height 61 [in_i] 61 [in_i] MEDENT ([facility], ) 5'1" Body weight 165.00 [lb_av] 165.00 [lb_av] MEDEN T ([facility]) Body mass index (BMI) [Ratio] 31.2 kg/m2 31.2 k g/m2 [facility] ([facility]) [place] body weight 105 [lb_av] 105 [lb_av] MEDEN T ([facility], ) Systolic blood pressure 126 mm[Hg] 126 mm[Hg] M EDENT ([facility] Diastolic blood pressure 78 mm[Hg] 78 mm[Hg] MEDENT ([facility] Body temperature 98.3 [degF] 98.3 [degF] MEDENT ([facility] Heart rate 86 /min 86 /min MED[facility] ([facility] Respiratory rate 18 /min 18 /min MED[facility] ( [facility] Body height 63 [in_i] 63 [in_i] MEDENT ([facility] 5'3" Body weight 176.00 [lb_av] 176.00 [lb_av] MEDEN T ([facility] [place] body weight 115 [lb_av] 115 [lb_av] MEDEN T ([facility] Body mass index (BMI) [Ratio] 31.2 kg/m2 31.2 k g/m2 MEDENT ([facility] Oxygen saturation in Arterial blood by Pulse oximetry 97 % 97 % MEDENT ([facility] Body temperature 97.5 [degF] 97.5 [degF] MEDENT ([facility] ) Body height 61 [in_i] 61 [in_i] MEDENT ([facility] ) 5'1" Body weight 178.00 [lb_av] 178.00 [lb_av] MEDEN T ([facility] ) Body mass index (BMI) [Ratio] 33.6 kg/m2 33.6 k g/m2 MEDENT ([facility] ) Body mass index (BMI) [Ratio] 31.2 kg/m2 31.2 k g/m2 MEDENT ([facility] ) [place] body weight 105 [lb_av] 105 [lb_av] MEDEN T ([facility] ) Respiratory rate 12 /min 12 /min MEDENT ( [facility] ) Body height 61 [in_i] 61 [in_i] MEDENT ([facility] ) 5'1" Body weight 165.00 [lb_av] 165.00 [lb_av] MEDEN T ([facility] ) Body weight 165.00 [lb_av] 165.00 [lb_av] MEDEN T ([facility], )
== END 2020-12-25 19:07 | disposition home or self-care (01) ==
LOC: M ED 16:39
DX: S60.111A Contusion of right thumb with damage to nail, initial encounter (principal); W23.1XXA Caught, crushed, jammed, or pinched between stationary objects, initial encounter; Y92.9 Unspecified place or not applicable; Y93.9 Activity, unspecified; Y99.0 Civilian activity done for income or pay

== ENCOUNTER → 2020-12-27 | Outpatient (CLI) | payer BC, OTHER ==
--- NOTE | 2020-12-27 14:09 | REPMRS ---
Patient History The patient states she had a clinical breast exam in 11/2020. Family history of ovarian cancer at age 50 in paternal grandmother. Taking hormonal contraceptives for 13 years beginning at age 27. Patient states no breast complaints today. Patient has signed MRS History Sheet. Digital Woman Screen Mammo: December 27, 2020 - Exam #: [id number] Bilateral CC and MLO view(s) were taken. Technologist: Genevieve Lozada, Engraver [employer] FINDINGS: There are scattered fibroglandular densities. Screening. Digital screening (2D) mammography was performed bilaterally. Additionally, breast tomosynthesis (3D) mammography was perfomed bilaterally in the CC and MLO projections. Today's examination is the initial screening examination. By history, the patient has no complaints of a palpable breast abnormality or other significant breast complaints. The breasts are symmetric in size and shape. There are no masses. There is no internal architectural distortion. There are no suspicious microcalcific clusters. Skin thickening or nipple retraction is not present. IMPRESSION: BI-RADS Category 2- Benign Findings. There is no evidence of malignant alteration of the breasts. Followup examination recommended in one year. The Volpara volumetric breast density category is B, there are scattered areas of fibroglandular densities. This mammogram was read with the assistance of [employer],an FDA approved computer aided detection system for mammography. The lifetime Tyrer-Cuzick score is 10.8 % Negative x-ray reports should not delay surgical consultation if a dominant or clinically suspicious mass is present. Not all breast cancers can be identified by mammography. Therefore, we recommend that you continue to perform regular breast self-examination and physical examination and then promptly contact your physician of any concerns or changes. Adenosis and dense breasts may obscure an underlying neoplasm. Assessment: BI-RADS/ACR category 2 mammogram. Benign Findings. Recommendation Routine screening mammogram of both breasts in 1 year. Electronically Signed By: Justyn Up DO 12/27/20 [id number]
== END ==
LOC: M WHC 13:01
PROVIDERS: ATTEND Advanced Practice Midwife
DX: Z12.31 Encounter for screening mammogram for malignant neoplasm of breast (principal)

== ENCOUNTER → 2021-02-10 | Outpatient (CLI) | payer BC, OTHER ==
[~2021-02-10] MED LIST changes: +D31000TA2 PO
== END ==
LOC: M LABSMTC 10:52
PROVIDERS: ATTEND Anesthesiology
DX: Z01.818 Encounter for other preprocedural examination (principal); Z11.52 Encounter for screening for COVID-19

== ENCOUNTER 2021-02-14 10:24 | Day surgery (SDC) | payer BC, OTHER ==
[~2021-02-14] VITALS: Ht 154.9 cm; Wt 80.3 kg
[~2021-02-14 10:24] MED LIST changes: +NS 1,000 ML IV ONE
--- OUTSIDE RECORDS SUMMARY | 2021-02-14 10:31 | CCD | Continuity of Care Document ---
Author Author Delaney JEROME M.D. Organization Unknown Address [address] [address] Phone [phone] Care Team Providers Care Cash Office Worker Name Role Phone Jose AngelParish Javi AUTM [phone] Problems Active Problems Provider Date Cobalamin deficiency Jackie Soriano D., FNP-C Onset: 06/07 Note: h/o Hypothyroidism Jackie Soriano D., FNP-C Onset: 07/05 Vitamin D deficiency Jackie Soriano D., FNP-C Onset: 03/2014 Allergic rhinitis Jacike Soriano D., FNP-C Onset: 07/23 Social History Type Date Description Comments Sex Unknown Tobacco Use Start: Unknown End: Unknown Patient is a former smoker Allergies and adverse reactions Active Allergies Criticality Reaction | Severity Comments Date No Drug Allergies Unable to assess criticality 11/03/2007 Medications Active Medications SIG Qnty Indications Ordering Provide r Date Levothyroxine Sodium 25mcg Tablets take one tablet by mouth every day, needs appt 90tabs Fili Barger M.D. 07/25/2018 Cetirizine HCL 10mg Tablets 1 by mouth every day 90tabs Fili Jerome M.D. 06/11/19 16 Probiotic Capsules take 1 po daily Asiya Baird FNP-BC 04/26/2015 Vitamin D 1000Unit Tablets 1 by mouth every day Jackie Soriano D., FNP-C 03/2014 Keke-Be 0.35mg Tablets as Dir ected Unknown Gabapentin 100mg Capsules 2 at hs prn Unknown Vitamin B12 1000mcg Tablets ER 1 by mouth every day OTC Unknown Medications Administered in Office Medication SIG Qnty Indications Ordering Provider Date Injection (SC)/(Im) Injection Asiya Baird FNP-BC 04/26/2015 Injection (SC)/(Im) Injection Cosme Serrano RPA 12/08/2010 Immunizations CPT Code Status Date Vaccine Lot # [id number] Given 12/08/2010 Tdap Tetanus,Dip htheria Toxoids/Acellular Pertussis 7Yrs Or Older [id number] Vital Signs Date Vital Result Comment 02/11/2021 3:55pm BP Systolic 114 mmHg BP Diastolic 76 mmHg Body Temperature 98.3 F Heart Rate 90 /min Respiratory Rate 16 /min Height 63 inches 5'3" Weight 181.00 lb [place] Body Weight 115 lb BMI (Body Mass Index) 32.1 kg/m2 O2 % BldC Oximetry 96 % 08/07/2020 11:44am BP Systolic 126 mmHg BP Diastolic 78 mmHg Body Temperature 98.3 F Heart Rate 86 /min Respiratory Rate 18 /min Height 63 inches 5'3" Weight 176.00 lb [place] Body Weight 115 lb BMI (Body Mass Index) 31.2 kg/m2 O2 % BldC Oximetry 97 % Results Test Acquired Date Facility Test Result H/L Range Note Laboratory test finding 02/11/2021 [facility]/Inhouse TSH <pending> Coronavirus 2019 Nasopharygeal 02/10/2021 [facility] ([facility]) [phone] Coronavirus 2019 Nasopharygeal ASSAY INFORMATIO <SEE N OTE> 1 1 ASSAY INFORMATION: Real Time RT-PCR NOTE: The COVID-19 assay has been cleared by the U.S. Food and Drug Administration under the Emergency Use Authorization (EUA). [facility] and [facility] are designated as high complexity laboratories by the Clinical Laboratory Improvement Amendments of 1988(CLIA) and are qualified to perform this test. Not Detected Procedures Date Code Description Status 02/11/2021 27666 Office/Outpatient Established Mo d MDM 30-39 Min Completed Medical Devices Description No Information Available Encounters Type Date Location Provider Dx Diagnosis Office Visit 02/11/2021 4:00p [place] [facility] Fili Jerome M. D. E03.9 Hypothyroidism, unspecified K50.90 Crohn's disease, unspecified , without complications D51.9 Vitamin B12 deficiency anemi a, unspecified Assessments Date Code Description Provider 02/11/2021 E03.9 Hypothyroidism, unspecified [facility] Fili flanagan M.D. 02/11/2021 K50.90 Crohn's disease, unspecified, wi thout complications Fili Jerome M.D. 02/11/2021 D51.9 Vitamin B12 deficiency anemia, u nspecified Fili Jerome M.D. Plan of Treatment Future Appointment(s):* 08/12/2021 4:00 pm - Fili Jerome M.D. at [facility] Functional Status Description No Information Available Mental Status Description No Information Available Referrals Description No Information Available
--- OUTSIDE RECORDS SUMMARY | 2021-02-14 10:31 | CCD | Continuity of Care Document ---
Author Author Delaney JEROME M.D. Organization Unknown Address [address] [address] Phone [phone] Care Team Providers Care Agency Development Manager Name Role Phone Bethanie Mcleod AUTM [phone] [place] Walter D.O. AUTM [phone] Problems Active Problems Provider Date Cobalamin deficiency Jackie Soriano D., FNP-[place] Onset: 06/07 Note: h/o Hypothyroidism Jackie Soriano D., FNP-C Onset: 07/05 Vitamin D deficiency Jackie Soriano D., FNP-Hardy Onset: 03/2014 Allergic rhinitis Jackie Soriano D., FNP-Hardy Onset: 07/23 Social History Type Date Description [...] Capsules take 1 po daily Asiya Baird FNP-RUSTY 04/26/2015 Vitamin D 1000Unit Tablets 1 by mouth every day Jackie Soriano D., FNP-C 03/2014 Keke-Be 0.35mg Tablets as Dir ected Unknown Gabapentin 100mg Capsules 2 at hs prn Unknown Vitamin B12 1000mcg Tablets ER 1 by mouth every day OTC Unknown Medications Administered in Office Medication SIG Qnty Indications Ordering Provider Date Injection (SC)/(Im) Injection Asiya Baird, COMPUTER INFORMATION SCIENCE PROFESSOR-RUSTY 04/26/2015 Injection (SC)/(Im) Injection Cosme Serrano RPA 12/08/2010 Immunizations CPT Code Status Date Vaccine Lot # [id number] Given 12/08/2010 Tdap Tetanus,Dip htheria Toxoids/Acellular Pertussis 7Yrs Or Older [id number] Vital Signs Date Vital Result Comment 02/11/2021 3:55pm BP Systolic 114 mmHg BP Diastolic 76 mmHg Body Temperature 98.3 F Heart Rate 90 /min Respiratory Rate 16 /min Height 63 inches 5'3" Weight 181.00 lb [place] Body Weight 115 lb BMI (Body Mass Index) 32.1 kg/m2 O2 % BldC Oximetry 96 % 08/07/2020 11:44am BP Systolic 126 mmHg BP Diastolic 78 mmHg Body Temperature 98.3 F Heart Rate 86 /min Respiratory Rate 18 /min Height 63 inches 5'3" Weight 176.00 lb [place] Body Weight 115 lb BMI (Body Mass Index) 31.2 kg/m2 O2 % BldC Oximetry 97 % Results Description No Information Available Procedures Date Code Description Status 02/11/2021 17412 Office/Outpatient Established Mo d MDM 30-39 Min Completed Medical Devices Description No Information Available Encounters Type Date Location Provider Dx Diagnosis Office Visit 02/11/2021 4:00p [place] [facility] Fili Jerome M. D. E03.9 Hypothyroidism, unspecified K50.90 Crohn's disease, unspecified , without complications D51.9 Vitamin B12 deficiency anemi a, unspecified Assessments Date Code Description Provider 02/11/2021 E03.9 Hypothyroidism, unspecified [facility] Fili flanagan M.D. 02/11/2021 K50.90 Crohn's disease, unspecified, wi thout complications Fili Jerome M.D. 02/11/2021 D51.9 Vitamin B12 deficiency anemia, u nspecified Fili Jerome M.D. Plan of Treatment No Information Available Functional Status Description No Information Available Mental Status Description No Information Available Referrals Description No Information Available
--- OUTSIDE RECORDS SUMMARY | 2021-02-14 10:31 | CCD | Continuity of Care Document ---
Author Author Delaney JEROME M.D. Organization Unknown Address [address] [address] Phone [phone] Care Team Providers Care Consular Officer Name Role Phone Jose AngelParish Javi AUTM [phone] Problems Active Problems Provider Date Cobalamin deficiency Jackie Soriano D., FNP-C Onset: 06/07 Note: h/o Hypothyroidism Jackie Soriano D., FNP-C Onset: 07/05 Vitamin D deficiency Jackie Soriano D., FNP-C Onset: 03/2014 Allergic rhinitis Jackie Soriano D., FNP-C Onset: 07/23 Social History [...] CPT Code Status Date Vaccine Lot # [id number] Given 12/08/2010 Tdap Tetanus,Dip htheria Toxoids/Acellular Pertussis 7Yrs Or Older [id number] Vital Signs Date Vital Result Comment 02/11/2021 3:55pm BP Systolic 114 mmHg BP Diastolic 76 mmHg Body Temperature 98.3 F Heart Rate 90 /min Respiratory Rate 16 /min Height 63 inches 5'3" Weight 181.00 lb [place] Body Weight 115 lb BMI (Body Mass Index) 32.1 kg/m2 O2 % BldC Oximetry 96 % 08/07/2020 11:44am BP Systolic 126 mmHg BP Diastolic 78 mmHg Body Temperature 98.3 F Heart Rate 86 /min Respiratory Rate 18 /min Height 63 inches 5'3" Weight 176.00 lb [place] Body Weight 115 lb BMI (Body Mass Index) 31.2 kg/m2 O2 % BldC Oximetry 97 % Results Test Acquired Date Facility Test Result H/L Range Note CBC 02/11/2021 [facility]Inhouse WBC 6.6 10E3/uL 4.1 - 10.9 1 RBC 4.37 10E6/uL 4.20 - 6.30 HGB 14.3 g/dL 12.0 - 18.0 HCT 39.8 % 37.0 - 51.0 MCV 91.1 fL 80.0 - 97.0 MCH 32.7 pg High 26.0 - 32.0 MCHC 35.9 g/dL 31.0 - 36.0 PLT 288 10E3/uL 140 - 440 RDW-CV 11.9 % 11.5 - 14.5 Lym% 34.2 % 10.0 - 58.5 Neut% 58.3 % 37.0 - 92.0 MXD% 7.5 % 0.1 - 24.0 Lym# 2.3 10E3/uL 0.6 - 4.1 Neut# 3.8 % 2.0 - 7.8 MXD# 0.5 10E3/uL 0.0 - 1.8 MPV 9.3 fL 9.0 - 13.0 CMP 02/11/2021 [facility]Inhouse Glu 147 mg/dL High 70 - 110 BUN 10 mg/dL 8 - 23 Creat 0.9 mg/dL 0.5 - 1.0 BUN/Creatinine Ratio 11.4 Calc Na 134 mmol/L Low 136 - 145 K 4.0 mmol/L 3.5 - 5.1 CL 102.7 mmol/L 98.0 - 107.0 Co2 20.4 mmol/L Low 22.0 - 29.0 CA 9.3 mg/dL 8.6 - 10.2 TP 6.1 g/dL Low 6.6 - 8.7 Alb 4.2 g/dL 3.4 - 4.8 A/G Ratio 2.1 Calc Globulin 1.9 Calc Alp 75.7 U/L 35 - 129 Alt (SGPT) 14 U/L 0 - 41 Ast (Sgot) 18 U/L 0 - 40 Tbili 0.19 mg/dL 0.0 - 1.2 Osmolality-Calculated 269.7 Calc Anion Gap 15 mmol/L eGFR 93 # Calc 2 eGFR Non-Afr. [place] 80 # Calc 3 Laboratory test finding 02/11/2021 [facility]/Inhouse TSH <pending> Coronavirus 2019 Nasopharygeal 02/10/2021 [facility] ([facility]) [phone] Coronavirus 2019 Nasopharygeal ASSAY INFORMATIO <SEE N OTE> 4 1 NORMAL RANGES Age WBC RBC HGB HCT [...] HCT IS 5% LESS SOURCE FOR DATA: [employer] 1800 OPERATION MANUAL( AUTOMATED BLOOD COUNTS AND [...] Normal 80 and above >32 mL/min Normal 2 CKD-EPI 3 CKD-EPI 4 ASSAY INFORMATION: Real Time RT-PCR NOTE: The COVID-19 assay has been cleared by the U.S. Food and Drug Administration under the Emergency Use Authorization (EUA). [employer] and [employer] are designated as high complexity laboratories by the Clinical Laboratory Improvement Amendments of 1988(CLIA) and are qualified to perform this test. Not Detected Procedures Date Code Description Status 02/11/2021 36620 Office/Outpatient Established Mo d MDM 30-39 Min Completed Medical Devices Description No Information Available Encounters Type Date Location Provider Dx Diagnosis Office Visit 02/11/2021 4:00p [facility] Fili Jerome M. D. E03.9 Hypothyroidism, unspecified K50.90 Crohn's disease, unspecified , without complications D51.9 Vitamin B12 deficiency anemi a, unspecified Assessments Date Code Description Provider 02/11/2021 E03.9 Hypothyroidism, unspecified [facility] Fili flanagan M.D. 02/11/2021 K50.90 Crohn's disease, unspecified, wi thout complications Fili Jerome M.D. 02/11/2021 D51.9 Vitamin B12 deficiency anemia, u nspecified Fili Jerome M.D. Plan of Treatment Future Appointment(s):* 08/12/2021 4:00 pm - Fili Jerome M.D. at [facility] Functional Status Description No Information Available Mental Status Description No Information Available Referrals Description No Information Available
--- OUTSIDE RECORDS SUMMARY | 2021-02-14 10:31 | CCD | Continuity of Care Document ---
Author Author Delaney JEROME M.D. Organization Unknown Address [address] [address] Phone [phone] Care Team Providers Care Private Branch Exchange Installer Name Role Phone Jose AngelParish Javi AUTM [phone] Problems Active Problems Provider Date Cobalamin deficiency [...] CPT Code Status Date Vaccine Lot # [id number] Given 12/08/2010 Tdap Tetanus,Dip htheria Toxoids/Acellular Pertussis 7Yrs Or Older [id number] Vital Signs Date Vital Result Comment 02/11/2021 3:55pm BP Systolic 114 mmHg BP Diastolic 76 mmHg Body Temperature 98.3 F Heart Rate 90 /min Respiratory Rate 16 /min Height 63 inches 5'3" Weight 181.00 lb [place] Body Weight 115 lb BMI (Body Mass Index) 32.1 kg/m2 O2 % BldC Oximetry 96 % 08/07/2020 11:44am BP Systolic 126 mmHg BP Diastolic 78 mmHg Body Temperature 98.3 F Heart Rate 86 /min Respiratory Rate 18 /min Height 63 inches 5'3" Weight 176.00 lb [place] Body Weight 115 lb BMI (Body Mass [...] eGFR 93 # Calc 2 eGFR Non-Afr. [place] 80 # Calc 3 Laboratory test finding 02/11/2021 [facility]/Inhouse TSH 2.797 ulU/mL 0.60 - 4.8 Coronavirus 2019 Nasopharygeal 02/10/2021 [facility] ([facility]) [phone] Coronavirus 2019 Nasopharygeal ASSAY INFORMATIO <SEE N [...] HCT IS 5% LESS SOURCE FOR DATA: [employer] 1800 OPERATION MANUAL( AUTOMATED BLOOD COUNTS AND [...] Administration under the Emergency Use Authorization (EUA). [employer] and [employer] are designated as high complexity laboratories by the Clinical Laboratory Improvement Amendments of 1988(CLIA) and are qualified to perform this test. Not Detected Procedures Date Code Description Status 02/11/2021 72168 Office/Outpatient Established Mo d MDM 30-39 Min Completed Medical Devices Description No Information Available Encounters Type Date Location Provider Dx Diagnosis Office Visit 02/11/2021 4:00p [facility] Fili Jerome M. D. E03.9 Hypothyroidism, unspecified K50.90 Crohn's disease, unspecified , without complications D51.9 Vitamin B12 deficiency anemi a, unspecified Assessments Date Code Description Provider 02/11/2021 E03.9 Hypothyroidism, unspecified [facility] Fili flanagan M.D. 02/11/2021 K50.90 Crohn's disease, unspecified, wi thout complications Fili Jerome M.D. 02/11/2021 D51.9 Vitamin B12 deficiency anemia, u nspecified Fili Jerome M.D. Plan of Treatment Future Appointment(s):* 08/12/2021 4:00 pm - Fili Jerome M.D. at [facility] Functional Status Description No Information Available Mental Status Description No Information Available Referrals Description No Information Available
--- OUTSIDE RECORDS SUMMARY | 2021-02-14 10:32 | CCD ---
Author Author [facility] Organization [facility] Address Unknown Phone Unavailable Care Team Providers Care Contact Lens Cutter Name Role Phone Jasmeet Pitts MD Unavailable [...] Mandappa, Mely CASAC Unavailable Unavailable Mani Swenson Unavailable Unavailable Mani Swenson Unavailable Unavailable Mani Swenson Unavailable Unavailable Mani Swenson Unavailable Unavailable Mani Swenson Unavailable Unavailable Mani Swenson Unavailable Unavailable Swenson, M Barratt PA Unavailable [...] Swenson, M Barratt PA Unavailable Unavailable MYRA, B AXEL WALDRON Unavailable Unavailable MYRA, B AXEL WALDRON Unavailable Unavailable MYRA, B AXEL WALDRON Unavailable Unavailable MYRA, Gwen REYNA MD Unavailable Unavailable MYRA, Gwen REYNA MD Unavailable Unavailable MYRAGwen MD Unavailable Unavailable MYRAGwen MD Unavailable Unavailable MYRA, Gwen REYNA MD Unavailable Unavailable MYRA, Gwne REYNA MD Unavailable Unavailable MYRA, Gwen REYNA [...] MYRA, Gwen REYNA MD Unavailable Unavailable MRYA, Gwen REYNA MD Unavailable Unavailable MYRA, Gwen [...] Unavailable Unavailable Emilee MENDOZA MD Unavailable Unavailable KELLY H RAFI WALDRON Unavailable Unavailable Emilee MENDOZA MD Unavailable Unavailable [...] Unavailable Unavailable Emilee MENDOZA MD Unavailable Unavailable Malou Fry MD Unavailable [...] is protected by Article 27-F of the [place] Public [facility] law. If you continue you may have access to information: Regarding HIV / AIDS; Provided by facilities licensed or operated by the [facility] Office of Mental Health; or Provided by the [facility] Office for People With Developmental Disabilities. If such information is present, then the following [facility] mandated warning applies: This information has been [...] law may result in a fine or alf sentence or both. A general authorization for the release of medical or other information is NOT sufficient authorization for further disc losure. Allergies and Adverse Reactions Type Description Substance Reaction Status Data Source(s ) Propensity to adverse reactions NO KNOWN ALLERGIES NO KNOWN ALLERGIES [facility] Family History Family Member Name Family Member Gender Family Member Status Date o f Status Description Data Source(s) Unknown Male Problem [facility] ([facility]) Unknown Unknown Problem [facility] maternal GM age late 50s Unknown Unknown Problem [facility] ([facility] Encounters Encounter Providers Location Date Indications Data Source(s ) Outpatient Attender: RAFI MENDOZA MD [place] [facility] 09/2020 03:00:00 PM EST [facility] ([facility] Outpatient Attender: AXEL RENTERIA MDReferrer: Rodriguez Pitts MD [id number] 12/06/2020 12:00:00 AM EDT [facility] Office Visit Attender: Tavon Fry MD [facility] office - [facility] 11/19/2020 11:15:00 AM EDT [facility] ([facility] Recurring Patient Referrer: RAFI MENDOZA MD 10/25/2020 0 3:03:02 PM EDT [facility] Recurring Patient Referrer: Mely MARTINEZ 10/25/2020 02:14:36 PM EDT [facility] OFFICE OUTPATIENT VISIT 15 MINUTES Attender: Thaddeus VELA Physical Therapy 10/14/2020 03:15:00 PM EDT [facility] ([facility]) OFFICE OUTPATIENT VISIT 15 MINUTES Attender: Rodriguez Pitts MD P hysical Therapy 09/18/2020 01:30:00 PM EDT [facility] ([facility]) Outpatient Attender: RAFI MENDOZA MD [place] [facility] 04/2020 11:30:00 AM EDT [facility] ([facility] Outpatient Attender: Rodriguez Pitts MD Physical Therapy 04/2020 10:00:00 AM EDT [facility] ([facility]) Outpatient Attender: Rodriguez Pitts MD Physical Therapy 04:15:00 PM EDT [facility] ([facility]) Office Visit Attender: Tavon Fry MD Main office - [facility] 05/16/2020 01:45:00 PM EST [facility] ([facility] Office Visit Attender: Tavon Fry MD Main office - [facility] 01/15/2020 01:30:00 PM EST [facility] ([facility]) Immunizations Vaccine Date Status Description Data Source(s) COVID-19 VACCINE Moderna 06/27/2020 12:00:00 AM EDT [facility]: YESThis Data wa s Submitted to [facility] [employer]. COVID-19 VACCINE Moderna 05/30/2020 12:00:00 AM EDT completed [facility] Vaccine Series Complete: NOThis Data was Submitted to [facility] [employer]. Medications Medication Brand Name Start Date Product Form Dose Route Admi nistrative Instructions Pharmacy Instructions Status Indications Reaction Description Data Source(s) 60 mcg (15 mcg x 4)/0.5 mL 01/10/2021 12:00:00 AM EDT syring e 0 INJECT DIRECTED INJECT DIRECTED SOLD: 01/10/2021 [facility] 1 % 12/18/2020 12:00:00 AM EDT lotion [...] AT SUPPER TIME SOLD: 11/28/2020 [facility] 100 mg 11/19/2020 12:00:00 AM EDT capsule 60 TAKE TWO CAPSULES BY MOUTH EVERY DAY AT SUPPER TIME TAKE TWO CAPSULES BY MOUTH EVERY DAY AT SUPPER TIME SOLD: 01/15/2021 [facility] 400 mg/5 mL 10/31/2020 12:00:00 [...] MOUTH AT SUPPERTIME SOLD: 01/17/2020 [facility] 25 mcg 07/25/2019 12:00:00 AM EDT tablet 90 TAKE ONE TABLET BY MOUTH EVERY DAY TAKE ONE TABLET BY MOUTH EVERY DAY SOLD: 01/24/2020 [facility] 25 mcg 07/25/2019 12:00:00 AM EDT tablet 90 TAKE ONE TABLET BY MOUTH EVERY DAY TAKE ONE TABLET BY MOUTH EVERY DAY SOLD: 04/25/2020 [facility] Insurance Providers Payer name Policy type / Coverage type Policy ID Covered republican ID Covered republican's relationship to townsend Policy [place] Plan Information [facility] Health Maintenance Organization (O) [id number] [facility] U [id number] Self [id number] EMPIRE PLAN [facility] U [id number] Self [id number] Workers Compensation Workers Compensation [id number] Self Workers Compensation Workers Compensation [id number] Self [employer] [id number] SP [id number] BCBS E[place]IRE PAVEL DIV [id number] SP [id number] [facility] Health Maintenance Organization (O) [id number] Self [id number] [facility] Health Maintenance Organization (O) [id number] Self [id number] [employer] O [id number] S [id number] [facility] [place] Medigap Part B [id number] Self [id number] [place] Medigap Part B [id number] Self [id number] EMPIRE ([facility]) O [id number] S [id number] SELF PAY UNAVAILABLE SP UNAVAILA BLE [facility] Health Maintenance Organization (O) [id number] Self SELF PAY P [id number] S [employer] Medigap Part B [id number] Self [employer] Commercial [id number] Self [employer]OMCO [id number] SP [id number] [employer] [id number] SP [id number] [employer] HE[employer] INSURANCE [id number] SP [id number] UNITED HEALTHCARE [id number] SP [id number] BCBS EMPIRE PAVEL DIV [id number] SP [id number] STATE INSURANCE FUND [id number] SP [id number] [employer] [facility] DEPT OF [place] [id number] SP [id number] [place] Plan F [id number] SELF [id number] UNITED HEALTHCARE [id number] SP [id number] BCBS EMPIRE PAVEL DIV [id number] SP [id number] ANSI-Commercial [id number] ANSI-Commercial [id number] Problems, Conditions, and Diagnoses No Information Surgeries/Procedures Procedure Description Date Indications Data Source(s) OFFICE OUTPATIENT VISIT 25 MINUTES 02/11/2021 12:00:00 AM EST [facility] ([facility] PHYSICIAN TELEPHONE EVALUATION 11-20 MIN 11/19/2020 12 :00:00 AM EDT [facility] ([facility] OFFICE OUTPATIENT VISIT 15 MINUTES 10/14/2020 12:00:00 AM EDT [facility] ([facility] OFFICE OUTPATIENT VISIT 25 MINUTES 10/14/2020 12:00:00 AM EDT [facility] ([facility] MRI Upper Extremity Any Joint 09/24/2020 12:00:00 AM E DT [facility] ([facility] OFFICE OUTPATIENT VISIT 15 MINUTES 09/18/2020 12:00:00 AM EDT [facility] ([facility] OFFICE OUTPATIENT VISIT 25 MINUTES 09/18/2020 12:00:00 AM EDT [facility] ([facility] OFFICE OUTPATIENT VISIT 10 MINUTES 08/07/2020 12:00:00 AM EDT [facility] ([facility] Physical Therapy Eval - Low Complexity 06/21/2020 12:0 0:00 AM EDT [facility] ([facility] ) RADEX WRIST COMPLETE MINIMUM 3 VIEWS 06/05/2020 12:00: 00 AM EDT [facility] ([facility] RADEX HAND MINIMUM 3 VIEWS 06/05/2020 12:00:00 AM EDT [facility] ([facility] OFFICE OUTPATIENT VISIT 25 MINUTES 06/05/2020 12:00:00 AM EDT [facility] ([facility] Needle electromyography, each extremity, with related paraspinal areas, when performed, done with nerve conduction, amplitude and latency/velocity study; complete, five or more muscles studied, innervated by three or more nerves or four or more spinal levels (list separately in addition to the code for primary procedure). 05/29/2020 12:00:00 AM EDT MEDEN T ([facility] ) 20411 Nerve conduction studies 7-8 studies NEW 201205/29/2020 12:00:00 AM EDT [facility] ([facility] NON-INVASIVE PHYSIOLOGIC STUDY EXTREMITY 3 LEVLS 12/21 12:00:00 AM EDT [facility] ([facility] NON-INVASIVE PHYSIOLOGIC STUDY EXTREMITY 3 LEVLS 12/21 12:00:00 AM EDT [facility] ([facility] NON-INVASIVE PHYSIOLOGIC STUDY EXTREMITY 3 LEVLS 12/21 12:00:00 AM EDT [facility] ([facility] NON-INVASIVE PHYSIOLOGIC STUDY EXTREMITY 3 LEVLS 12/21 12:00:00 AM EDT [facility] ([facility] TSTG ANS FUNCJ CARDIOVAGAL INNERVAJ PARASYMP 0 12:00:00 AM EDT [facility] ([facility] TSTG ANS FUNCJ CARDIOVAGAL INNERVAJ PARASYMP 0 12:00:00 AM EDT [facility] ([facility] TESTING AUTONOMIC NERVOUS SYSTEM FUNCTION 12/22/2019 1 2:00:00 AM EDT [facility] ([facility] TESTING AUTONOMIC NERVOUS SYSTEM FUNCTION 12/22/2019 1 2:00:00 AM EDT [facility] ([facility] Results ID Date Data Source [id number] 02/11/2021 04:50:00 PM EST [facility] ([facility] Name Value Range Interpretation Code Description Data Bertha rce(s) Supporting Document(s) Thyrotropin [Units/volume] in Serum or Plasma 2.797 ulU/mL 0.60-4.8 [facility] ([facility] ID Date Data Source [id number] 02/11/2021 04:50:00 PM EST [facility] ([facility] Name Value Range Interpretation Code Description Data Bertha rce(s) Supporting Document(s) Glu 147 mg/dL 70-110 Above high normal [facility] ([facility] NORMAL RANGES Age WBC RBC [...] HCT IS 5% LESS SOURCE FOR DATA: [employer] DYN 1800 OPERATION MANUAL( AUTOMATED BLOOD COUNTS [...] 80 and above >32 mL/min Normal BUN 10 mg/dL 8- [facility] NORMAL RANGES Age WBC RBC [...] HCT IS 5% LESS SOURCE FOR DATA: [employer] 1800 OPERATION MANUAL( AUTOMATED BLOOD COUNTS AND [...] 80 and above >32 mL/min Normal Creat 0.9 mg/dL 0.5-1.0 [facility] NORMAL RANGES Age WBC RBC [...] HCT IS 5% LESS SOURCE FOR DATA: [employer] 1800 OPERATION MANUAL( AUTOMATED BLOOD COUNTS AND [...] and above >32 mL/min Normal BUN/Creatinine Ratio 11.4 [facility] ([facility] NORMAL RANGES Age WBC RBC [...] 80 and above >32 mL/min Normal K 4.0 mmol/L 3.5-5.1 [facility] NORMAL RANGES Age WBC RBC [...] HCT IS 5% LESS SOURCE FOR DATA: [employer] 1800 OPERATION MANUAL( AUTOMATED BLOOD COUNTS AND [...] 80 and above >32 mL/min Normal Na 134 mmol/L 136-145 Below low normal [facility] ( [facility] NORMAL RANGES Age WBC [...] HCT IS 5% LESS SOURCE FOR DATA: [employer] 1800 OPERATION MANUAL( AUTOMATED BLOOD COUNTS AND [...] 80 and above >32 mL/min Normal CL 102.7 mmol/L 98.0-107.0 [facility] ([facility] NORMAL RANGES Age WBC [...] HCT IS 5% LESS SOURCE FOR DATA: [employer] 1800 OPERATION MANUAL( AUTOMATED BLOOD COUNTS AND [...] 80 and above >32 mL/min Normal Co2 20.4 mmol/L 22.0-29.0 Below low normal [facility] ([facility] NORMAL RANGES [...] HCT IS 5% LESS SOURCE FOR DATA: [employer] 1800 OPERATION MANUAL( AUTOMATED BLOOD COUNTS AND [...] 80 and above >32 mL/min Normal TP 6.1 g/dL 6.6-8.7 Below low normal [facility] ( [facility] NORMAL RANGES Age WBC [...] HCT IS 5% LESS SOURCE FOR DATA: [employer] 1800 OPERATION MANUAL( AUTOMATED BLOOD COUNTS AND [...] 80 and above >32 mL/min Normal CA 9.3 mg/dL 8.6-10.2 [facility] NORMAL [...] HCT IS 5% LESS SOURCE FOR DATA: [employer] 1800 OPERATION MANUAL( AUTOMATED BLOOD COUNTS AND [...] 80 and above >32 mL/min Normal Alb 4.2 g/dL 3.4-4.8 [facility] ([facility] NORMAL [...] HCT IS 5% LESS SOURCE FOR DATA: [employer] 1800 OPERATION MANUAL( AUTOMATED BLOOD COUNTS AND [...] 80 and above >32 mL/min Normal Globulin 1.9 Calc [facility] NORMAL RANGES Age WBC RBC [...] HCT IS 5% LESS SOURCE FOR DATA: [employer] 1800 OPERATION MANUAL( AUTOMATED BLOOD COUNTS AND [...] 80 and above >32 mL/min Normal Alp 75.7 U/L 35-129 [facility] NORMAL RANGES Age [...] and above >32 mL/min Normal A/G Ratio 2.1 Calc [facility] NORMAL RANGES Age [...] HCT IS 5% LESS SOURCE FOR DATA: [employer] DYN 1800 OPERATION MANUAL( AUTOMATED BLOOD COUNTS [...] and above >32 mL/min Normal Ast (Sgot) 18 U/L 0-40 [facility] ([facility] NORMAL RANGES Age WBC RBC [...] HCT IS 5% LESS SOURCE FOR DATA: [employer] 1800 OPERATION MANUAL( AUTOMATED BLOOD COUNTS AND [...] and above >32 mL/min Normal Alt (SGPT) 14 U/L 0-41 [facility] ([facility] NORMAL RANGES Age [...] HCT IS 5% LESS SOURCE FOR DATA: [employer] 1800 OPERATION MANUAL( AUTOMATED BLOOD COUNTS AND [...] 80 and above >32 mL/min Normal Tbili 0.19 mg/dL 0.0-1.2 [facility] ([facility] NORMAL RANGES Age WBC RBC [...] HCT IS 5% LESS SOURCE FOR DATA: [employer] 1800 OPERATION MANUAL( AUTOMATED BLOOD COUNTS AND [...] 80 and above >32 mL/min Normal Osmolality-Calculated 269.7 Calc MED [facility] ([facility] NORMAL RANGES Age [...] HCT IS 5% LESS SOURCE FOR DATA: [employer] 1800 OPERATION MANUAL( AUTOMATED BLOOD COUNTS AND [...] and above >32 mL/min Normal eGFR Non-Afr. Kenyan 80 # [facility] ([facility] NORMAL [...] HCT IS 5% LESS SOURCE FOR DATA: [employer] 1800 OPERATION MANUAL( AUTOMATED BLOOD COUNTS AND [...] 80 and above >32 mL/min Normal eGFR 93 # [facility] ( [facility] NORMAL RANGES Age WBC [...] HCT IS 5% LESS SOURCE FOR DATA: [employer] 1800 OPERATION MANUAL( AUTOMATED BLOOD COUNTS AND [...] and above >32 mL/min Normal Anion Gap 15 mmol/L [facility] ([facility] NORMAL RANGES Age WBC RBC [...] HCT IS 5% LESS SOURCE FOR DATA: [employer] 1800 OPERATION MANUAL( AUTOMATED BLOOD COUNTS AND [...] >32 mL/min Normal ID Date Data Source [id number] 02/11/2021 04:50:00 PM EST [facility] ([facility] Name Value Range Interpretation Code Description Data Bertha rce(s) Supporting Document(s) RBC 4.37 10E6/uL .-630 [place] ([facility] NORMAL RANGES Age WBC RBC [...] Normal 80 and above >32 mL/min Normal WBC 6.6 10E3/uL 4.1-10.9 [facility] ([facility] NORMAL RANGES Age WBC RBC [...] HCT IS 5% LESS SOURCE FOR DATA: [employer] 1800 OPERATION MANUAL( AUTOMATED BLOOD COUNTS AND [...] 80 and above >32 mL/min Normal HGB 14.3 g/dL 12.0-18.0 [facility] ([facility] NORMAL [...] HCT IS 5% LESS SOURCE FOR DATA: [employer] 1800 OPERATION MANUAL( AUTOMATED BLOOD COUNTS AND [...] 80 and above >32 mL/min Normal HCT 39.8 % 37.0-51.0 [facility] ([facility] NORMAL [...] HCT IS 5% LESS SOURCE FOR DATA: [employer] 1800 OPERATION MANUAL( AUTOMATED BLOOD COUNTS AND [...] 80 and above >32 mL/min Normal MCHC 35.9 g/dL 31.0-36.0 [facility] NORMAL [...] HCT IS 5% LESS SOURCE FOR DATA: [employer] 1800 OPERATION MANUAL( AUTOMATED BLOOD COUNTS AND [...] 80 and above >32 mL/min Normal MCV 91.1 fL 80.0-97.0 [facility] ([facility] [...] HCT IS 5% LESS SOURCE FOR DATA: [employer] 1800 OPERATION MANUAL( AUTOMATED BLOOD COUNTS AND [...] 80 and above >32 mL/min Normal MCH 32.7 pg 26.0-32.0 Above high normal [facility] ([facility] NORMAL RANGES [...] HCT IS 5% LESS SOURCE FOR DATA: [employer] 1800 OPERATION MANUAL( AUTOMATED BLOOD COUNTS AND [...] 80 and above >32 mL/min Normal PLT 288 10E3/uL 140-440 [facility] ([facility] NORMAL RANGES Age WBC RBC [...] HCT IS 5% LESS SOURCE FOR DATA: [employer] 1800 OPERATION MANUAL( AUTOMATED BLOOD COUNTS AND [...] 80 and above >32 mL/min Normal RDW-CV 11.9 % 11.5-14.5 [facility] NORMAL RANGES Age [...] HCT IS 5% LESS SOURCE FOR DATA: [employer] 1800 OPERATION MANUAL( AUTOMATED BLOOD COUNTS AND [...] 80 and above >32 mL/min Normal Lym% 34.2 % 10.0-58.5 [facility] NORMAL RANGES Age WBC RBC HGB [...] HCT IS 5% LESS SOURCE FOR DATA: [employer] 1800 OPERATION MANUAL( AUTOMATED BLOOD COUNTS AND [...] 80 and above >32 mL/min Normal Neut% 58.3 % 37.0-92.0 [facility] ([facility] NORMAL [...] 80 and above >32 mL/min Normal MXD% 7.5 % 0.1-24.0 [facility] ([facility] NORMAL RANGES Age WBC RBC [...] HCT IS 5% LESS SOURCE FOR DATA: [employer] 1800 OPERATION MANUAL( AUTOMATED BLOOD COUNTS AND [...] 80 and above >32 mL/min Normal Lym# 2.3 10E3/uL 0.6-4.1 [facility] ([facility] NORMAL RANGES Age WBC RBC [...] HCT IS 5% LESS SOURCE FOR DATA: [employer] 1800 OPERATION MANUAL( AUTOMATED BLOOD COUNTS AND [...] 80 and above >32 mL/min Normal Neut# 3.8 % 2.0-7.8 [facility] NORMAL RANGES Age [...] HCT IS 5% LESS SOURCE FOR DATA: [employer] 1800 OPERATION MANUAL( AUTOMATED BLOOD COUNTS AND [...] 80 and above >32 mL/min Normal MPV 9.3 fL 9.0-13.0 [facility] ([facility] NORMAL RANGES [...] HCT IS 5% LESS SOURCE FOR DATA: [employer] 1800 OPERATION MANUAL( AUTOMATED BLOOD COUNTS AND [...] mL/min Normal MXD# 0.5 10E3/uL 0.0-1.8 [facility] ([facility] NORMAL RANGES Age WBC RBC [...] HCT IS 5% LESS SOURCE FOR DATA: [employer] 1800 OPERATION MANUAL( AUTOMATED BLOOD COUNTS AND [...] >32 mL/min Normal ID Date Data Source [id number] 02/10/2021 10:35:00 AM [place] ([employer] [facility] Name Value Range Interpretation Code Description Data Bertha rce(s) Supporting Document(s) Laboratory test finding (navigational concept) Laboratory test result [facility] ([facility] ASSAY INFORMATION: Real Time RT-PCR NOTE: The COVID-19 assay has been cleared by the U.S. Food and Drug Administration under the Emergency Use Authorization (EUA). [employer] and [employer] are designated as high complexity laboratories by the Clinical Laboratory Improvement Amendments of 1988(CLIA) and are qualified to perform this test. 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/HbBjqtqi3iIU7O0ADAmoadCtjuoF5xXv1 [file] cmo & president+S0YyPI7+hEET3jRbD1yUAy+QE46srOuU0RU2187azrs56yieZoBD43Axrt/sF+/e5lIqwaq12d+t6 [file] AgICAgICAgICAgICAgICAgICAgICAgICAgICAgICAgICAgICAgICAgICAgICAgICAgICAgICAgICAgIC RjTJZoZEEjPMTuVRCyCRWbYBNiUMSbRM4RJCGhBEAvWYSlEDGwOXHqUJEpNSXuVOFpRCXzFGOpJOAuVV AgICAgICAgICAgICAgICAgICAgICAgICAgICAgICAg ZJOkTJXlXPAeGVApVNLtHGXpQUUyXEEeHTItXCOoQXYiUF2VORYtKWDwHANyOOHyZCNiRVHpRTGeMIHr ICAgICAgICAgICAgICAgICAgICAgICAgICAgICAgICAgICAgICAgICAgICAgICAgICAgICAgICAgICAg NVDnNZVlTCHpUJBgETLwLK6VOFFeODZjRZEfUVNlVC AgICAgICAgICAgICAgICAgICAgICAgICAgICAgICAgICAgICAgICAgICAgICAgICAgICAgICAgICAgIC LqHYGzXSVcIYCkBSEpEMNxYUBpALLiKECjZQ0WDKSbDQIuYJFnGUBnCAXxCWIkWOTtGDVaTSTmECGwIQ AgICAgICAgICAgICAgICAgICAgICAgICAgICAgICAg GPOnMLYjYYPdTLHjKSAhFOHiFWJbBFCzRJBpVKXuGYRnCDThMB2NQKExQRKrDROcLQElZQWgBEBrSZUl ICAgICAgICAgICAgICAgICAgICAgICAgICAgICAgICAgICAgICAgICAgICAgICAgICAgICAgICAgICAg JRXxTRIbJYJaWFHiBQYeSWYoIJ2HWCBiMGNxBGVcFK AgICAgICAgICAgICAgICAgICAgICAgICAgICAgICAgICAgICAgICAgICAgICAgICAgICAgICAgICAgIC JwDOSxHGTvKALxLXXtRPAvIGNwMZEiKSMhQGUhGE7ZAWJoIMClRILyGMTyWNNwNOUzNAOpZGTdKWYlCI AgICAgICAgICAgICAgICAgICAgICAgICAgICAgICAg XSMuYJJdSFFcQPYjESAzQQNoBLEuUVEcCNFbWVYsLLYmPUArHZIvTQ4OWVLlFPFxFVZiGJDsJGRzCKOi ICAgICAgICAgICAgICAgICAgICAgICAgICAgICAgICAgICAgICAgICAgICAgICAgICAgICAgICAgICAg LUTaRDMgOZDdCTSuUBJoBZLaTWEjQD5RUDHuLDWwLU AgICAgICAgICAgICAgICAgICAgICAgICAgICAgICAgICAgICAgICAgICAgICAgICAgICAgICAgICAgIC RdOSJfKJJsLWTkRVMpVPKuJRZkMOSlSGVzAHXdSHRzTY2DYM06wZIav9B9GXWbAU1ilos/Eu3BCIiqyl IrtKKtRN4SSaCdKT0zhw1MXmRgLU8hum0IFOkZXkRm O0Y0wEXrPRHlMGKZEkZgT20sMWlkTq19YDauXSHoXrJqKPe9Sv5INnZuU9iiOZTtHpM8FKVpEwAjTGeo GR1Cl3GihDLfMYv+Qq9JOO6lk6YnDHqwOJCvNG2xkm7UAJoSDgNgL1HoamI7OPPeQSPrVx6EQMGwSIHb tIVzINZfWHDRDyUvY7UqyS08LHRURh5+DQplbmRvYm yNAxTzIRSby0IzYBz0HN3ETZTxJHy5aVUqKRSsJ4Lpy3IlWf67OJXhBabeBj7fGWabOhA7zjkrCLTvLY HqYIMfGA7jVVZaBUV4OvO9GZVMKJ6RKXHnIUVqlTNkOSSjXHJWLL7NMBmpYHD2OHOybrVekQNgHMztFH 9QYXJlbnQgMTkgMCBSDQo+Tm9MPC6lh6AaPUfiAEGp XI4vfx0NCNhHDdZxP4P3zXJvE9M2BEbkTa3BYOOsCBHwZCspMUVTLVocFE7NJL7tbmT6LS9VxVWcJWAb VTBrhTHqSHv4P97vhINyUTunZK6BANP+Janet+Dl7CZHIoJDDwQZPjIoImOHQHOxVgA7TzG9RHf6AdW4Hp DB97gKilpnDqYYshXD1WJR2oSKTaBZGKYJ4DiZMueQ 1dtpZjIRJdWGYTBwCsV07caAByWZMwFUS3WZMtJr8LOEUiK9RjjkXdvYfrrjAyWXFxVZCSHL2KBNeoqx UjaDLksGulTS98aAcfCI3OCl3JPlIjBW8aid6RuXTbUw0CSFTxHw5ELFWzHENtHCFhWXQ9FUZxOaWsBF bwYXAmNLLzUNB2UNWrEBQxLA5ZAtSbUFPyDSm7Ywjf ISYyHANgje9FSUVzHNUdFLY4LzSvUPJuYNFbVMlmIPZuPISuSFI8UEFpKYEeBL6DOcXkVXKrOWKbHAGg DDKdBGFnph1EAEHlLCDrAzX9SCLqZWAiRXHiKIkoJHVlCAK4CRJ8SREiDBXkFY1FPlEsFVTpZTV1PXMh GXLiAIAfkg1POMKrDKQhCKpeHbTbTUFuDRRnSGypMK EwPWQ1FAwrXDQpBXJmKQ8MRpLuITSlTUEhXYXmSVYuQEYrzs2WRTHgSKIcMdU7ULOlAYXbUTMwTFypLZ GxOPR3EgA7JLXaTKYnHM3QVsHaWMLvADw4CDCcHJKfAYYzrj7MWAQvAPAaZKS3ONJfVYTbRCQbHBhzOQ VlGSO3MKEjOEMeQMPoCG4ZXwOeONOtBQa6DMTpTIAl NUFoot6LUNKqYQRvARs9NfMsXZAeMXHeHEldSLQgDEHuQlo8DQKaGRUfJV8NYoUbHJOtCwJ2RCCmIIEd WPWwog9BGRYlUWQgAKGdHVQuAZSqXRTpJTs7qqUsrRAmKMq3FG3TD0RjlkWmWlNKMo2Da197TPQwHQUs [id number] [id number]+[id number]eCFJ4AK5xML [id number]+[id number] ID Date Data Source [id number] 08/07/2020 12:17:00 PM EDT [facility] ([facility] Name Value Range Interpretation Code Description Data Bertha rce(s) Supporting Document(s) Thyrotropin [Units/volume] in Serum or Plasma 3.059 ulU/mL 0.60-4.8 [facility] ([facility] ID Date Data Source [id number] 08/07/2020 12:16:00 PM EDT [facility] ([facility] Name Value Range Interpretation Code Description Data Bertha rce(s) Supporting Document(s) WBC 6.2 10E3/uL 4.1-10.9 MED[facility] ([facility] NORMAL RANGES Age WBC RBC [...] >32 mL/min Normal RBC 4.57 10E6/uL 4.20-6.30 [place] ([facility] NORMAL RANGES Age WBC RBC [...] HCT IS 5% LESS SOURCE FOR DATA: Solio 1800 OPERATION MANUAL( AUTOMATED BLOOD COUNTS AND [...] >32 mL/min Normal HGB 14.7 g/dL 12.0-18.0 [facility] ([facility] NORMAL [...] HCT IS 5% LESS SOURCE FOR DATA: Solio 1800 OPERATION MANUAL( AUTOMATED BLOOD COUNTS AND [...] >32 mL/min Normal MCV 91.0 fL 80.0-97.0 [facility] ([facility] NORMAL [...] HCT IS 5% LESS SOURCE FOR DATA: Solio 1800 OPERATION MANUAL( AUTOMATED BLOOD COUNTS AND [...] >32 mL/min Normal HCT 41.6 % 37.0-51.0 [facility] NORMAL [...] HCT IS 5% LESS SOURCE FOR DATA: Solio 1800 OPERATION MANUAL( AUTOMATED BLOOD COUNTS AND [...] MCH 32.2 pg 26.0-32.0 Above high normal [facility] ([facility] NORMAL RANGES [...] HCT IS 5% LESS SOURCE FOR DATA: Solio 1800 OPERATION MANUAL( AUTOMATED BLOOD COUNTS AND [...] >32 mL/min Normal PLT 294 10E3/uL 140-440 [facility] ([facility] NORMAL RANGES Age WBC RBC [...] HCT IS 5% LESS SOURCE FOR DATA: Solio 1800 OPERATION MANUAL( AUTOMATED BLOOD COUNTS AND [...] >32 mL/min Normal MCHC 35.3 g/dL 31.0-36.0 [place] ([facility] NORMAL [...] HCT IS 5% LESS SOURCE FOR DATA: Solio 1800 OPERATION MANUAL( AUTOMATED BLOOD COUNTS AND [...] >32 mL/min Normal RDW-CV 12.3 % 11.5-14.5 [facility] ([facility] NORMAL RANGES Age WBC RBC [...] HCT IS 5% LESS SOURCE FOR DATA: Solio 1800 OPERATION MANUAL( AUTOMATED BLOOD COUNTS AND [...] >32 mL/min Normal Neut% 57.7 % 37.0-92.0 [facility] NORMAL RANGES Age [...] >32 mL/min Normal Lym% 34.9 % 10.0-58.5 [facility] ([facility] NORMAL RANGES Age [...] >32 mL/min Normal Neut# 3.5 % 2.0-7.8 [facility] NORMAL RANGES Age [...] HCT IS 5% LESS SOURCE FOR DATA: Solio 1800 OPERATION MANUAL( AUTOMATED BLOOD COUNTS AND [...] >32 mL/min Normal MXD% 7.4 % 0.1-24.0 [facility] ([facility] NORMAL [...] HCT IS 5% LESS SOURCE FOR DATA: Solio 1800 OPERATION MANUAL( AUTOMATED BLOOD COUNTS AND [...] mL/min Normal Lym# 2.2 10E3/uL 0.6-4.1 [facility] ([facility] NORMAL RANGES Age WBC RBC [...] HCT IS 5% LESS SOURCE FOR DATA: Solio 1800 OPERATION MANUAL( AUTOMATED BLOOD COUNTS AND [...] >32 mL/min Normal MPV 9.1 fL 9.0-13.0 [facility] NORMAL [...] HCT IS 5% LESS SOURCE FOR DATA: Solio 1800 OPERATION MANUAL( AUTOMATED BLOOD COUNTS AND [...] mL/min Normal MXD# 0.5 10E3/uL 0.0-1.8 [facility] ([facility] NORMAL RANGES Age WBC RBC [...] HCT IS 5% LESS SOURCE FOR DATA: Solio 1800 OPERATION MANUAL( AUTOMATED BLOOD COUNTS AND [...] >32 mL/min Normal ID Date Data Source [id number] 08/07/2020 12:16:00 PM [facility] ([facility] Name Value Range Interpretation Code Description Data Bertha rce(s) Supporting Document(s) Glu 113 mg/dL 70-110 Above high normal [facility] ([facility] NORMAL RANGES Age WBC RBC [...] HCT IS 5% LESS SOURCE FOR DATA: Solio 1800 OPERATION MANUAL( AUTOMATED BLOOD COUNTS AND [...] above >32 mL/min Normal BUN 9 mg/dL 8-23 [facility] ([facility] NORMAL RANGES Age WBC RBC [...] HCT IS 5% LESS SOURCE FOR DATA: Solio 1800 OPERATION MANUAL( AUTOMATED BLOOD COUNTS AND [...] >32 mL/min Normal Creat 0.8 mg/dL 0.5-1.0 [facility] NORMAL RANGES Age WBC RBC [...] >32 mL/min Normal BUN/Creatinine Ratio 11.1 CALC [place] ([facility] NORMAL RANGES Age WBC [...] HCT IS 5% LESS SOURCE FOR DATA: Solio 1800 OPERATION MANUAL( AUTOMATED BLOOD COUNTS AND [...] >32 mL/min Normal K 4.2 mmol/L 3.5-5.1 [facility] NORMAL RANGES Age [...] HCT IS 5% LESS SOURCE FOR DATA: Solio 1800 OPERATION MANUAL( AUTOMATED BLOOD COUNTS AND [...] >32 mL/min Normal Na 136 mmol/L 136-145 [facility] ([facility] NORMAL RANGES Age WBC RBC [...] HCT IS 5% LESS SOURCE FOR DATA: Solio 1800 OPERATION MANUAL( AUTOMATED BLOOD COUNTS AND [...] Co2 21.2 mmol/L 22.0-29.0 Below low normal [facility] ([facility] NORMAL RANGES [...] HCT IS 5% LESS SOURCE FOR DATA: Solio 1800 OPERATION MANUAL( AUTOMATED BLOOD COUNTS AND [...] >32 mL/min Normal CL 102.9 mmol/L 98.0-107.0 [facility] ([facility] NORMAL RANGES [...] HCT IS 5% LESS SOURCE FOR DATA: Solio 1800 OPERATION MANUAL( AUTOMATED BLOOD COUNTS AND [...] >32 mL/min Normal CA 9.2 mg/dL 8.6-10.2 [facility] NORMAL RANGES Age [...] HCT IS 5% LESS SOURCE FOR DATA: Solio 1800 OPERATION MANUAL( AUTOMATED BLOOD COUNTS AND [...] >32 mL/min Normal Alb 4.5 g/dL 3.4-4.8 [facility] ([facility] NORMAL RANGES Age WBC RBC [...] HCT IS 5% LESS SOURCE FOR DATA: Solio 1800 OPERATION MANUAL( AUTOMATED BLOOD COUNTS AND [...] >32 mL/min Normal TP 6.8 g/dL 6.6-8.7 [facility] ([facility] NORMAL RANGES Age WBC RBC [...] HCT IS 5% LESS SOURCE FOR DATA: Solio 1800 OPERATION MANUAL( AUTOMATED BLOOD COUNTS AND [...] above >32 mL/min Normal Globulin 2.3 [facility] NORMAL RANGES Age [...] >32 mL/min Normal A/G Ratio 2.0 [facility]C [facility] NORMAL RANGES Age [...] >32 mL/min Normal Alp 85.3 U/L 35-129 [facility] ([facility] NORMAL RANGES Age WBC RBC [...] HCT IS 5% LESS SOURCE FOR DATA: Solio 1800 OPERATION MANUAL( AUTOMATED BLOOD COUNTS AND [...] mL/min Normal Alt (SGPT) 17 U/L 0-41 [facility] NORMAL RANGES Age [...] HCT IS 5% LESS SOURCE FOR DATA: Solio 1800 OPERATION MANUAL( AUTOMATED BLOOD COUNTS AND [...] mL/min Normal Ast (Sgot) 22 U/L 0-40 [facility] ([facility] NORMAL RANGES Age WBC RBC [...] HCT IS 5% LESS SOURCE FOR DATA: Solio 1800 OPERATION MANUAL( AUTOMATED BLOOD COUNTS AND [...] >32 mL/min Normal Tbili 0.73 mg/dL 0.0-1.2 [facility] ([facility] NORMAL RANGES Age [...] HCT IS 5% LESS SOURCE FOR DATA: Solio 1800 OPERATION MANUAL( AUTOMATED BLOOD COUNTS AND [...] >32 mL/min Normal Anion Gap 16 mmol/L [facility] ([facility] NORMAL RANGES [...] HCT IS 5% LESS SOURCE FOR DATA: Solio 1800 OPERATION MANUAL( AUTOMATED BLOOD COUNTS AND [...] mL/min Normal Osmolality-Calculated 271.8 [facility]C [facility] ([facility] NORMAL RANGES Age WBC [...] HCT IS 5% LESS SOURCE FOR DATA: Solio 1800 OPERATION MANUAL( AUTOMATED BLOOD COUNTS AND [...] mL/min Normal eGFR 107 # [facility] ( [facility] NORMAL RANGES Age WBC [...] HCT IS 5% LESS SOURCE FOR DATA: Solio 1800 OPERATION MANUAL( AUTOMATED BLOOD COUNTS AND [...] and above >32 mL/min Normal eGFR Non-Afr. [place] 92 # [facility] ([facility] NORMAL RANGES Age WBC [...] HCT IS 5% LESS SOURCE FOR DATA: Solio 1800 OPERATION MANUAL( AUTOMATED BLOOD COUNTS AND [...] Value Range Interpretation Code Description Data Source(s) Heart rate 90 /min 90 /min [facility] Respiratory rate 16 /min 16 /min [facility] ( [facility] Body height 63 [in_i] 63 [in_i] [facility] ([facility] 5'3" Body weight 181.00 [lb_av] 181.00 [lb_av] MEDEN T ([facility] [place] body weight 115 [lb_av] 115 [lb_av] [facility] T ([facility] Oxygen saturation in Arterial blood by Pulse oximetry 96 % 96 % [facility] ([facility] Body mass index (BMI) [Ratio] 32.1 kg/m2 32.1 k g/m2 [facility] ([facility] Systolic blood pressure 114 mm[Hg] 114 mm[Hg] M EDENT ([facility] Diastolic blood pressure 76 mm[Hg] 76 mm[Hg] [facility] ([facility] Body temperature 98.3 [degF] 98.3 [degF] [facility] ([facility] Respiratory rate 12 /min 12 /min [facility] ( [facility], ) Body height 61 [in_i] 61 [in_i] [facility] ([facility], ) 5'1" Body weight 165.00 [lb_av] 165.00 [lb_av] MEDEN T ([facility], ) Body mass index (BMI) [Ratio] 31.2 kg/m2 31.2 k g/m2 [facility] ([facility], ) [place] body weight 105 [lb_av] 105 [lb_av] MEDEN T ([facility], ) Systolic blood pressure 126 mm[Hg] 126 mm[Hg] M EDENT ([facility] Diastolic blood pressure 78 mm[Hg] 78 mm[Hg] [facility] ([facility] Body temperature 98.3 [degF] 98.3 [degF] [facility] ([facility] Heart rate 86 /min 86 /min [facility] ([facility] Respiratory rate 18 /min 18 /min [facility] ( [facility] Body height 63 [in_i] 63 [in_i] [facility] ([facility] 5'3" Body weight 176.00 [lb_av] 176.00 [lb_av] MEDEN T ([facility] [place] body weight 115 [lb_av] 115 [lb_av] MED[facility] T ([facility] Body mass index (BMI) [Ratio] 31.2 kg/m2 31.2 k g/m2 [facility] ([facility] Oxygen saturation in Arterial blood by Pulse oximetry 97 % 97 % [facility] ([facility] Body temperature 97.5 [degF] 97.5 [degF] [facility] ([facility] ) Body height 61 [in_i] 61 [in_i] [facility] ([facility] ) 5'1" Body weight 178.00 [lb_av] 178.00 [lb_av] MEDEN T ([facility] ) Body mass index (BMI) [Ratio] 33.6 kg/m2 33.6 k g/m2 [facility] ([facility] ) Body mass index (BMI) [Ratio] 31.2 kg/m2 31.2 k g/m2 [facility] ([facility] ) [place] body weight 105 [lb_av] 105 [lb_av] MEDEN T ([facility], ) Respiratory rate 12 /min 12 /min [facility] ( [facility] ) Body height 61 [in_i] 61 [in_i] [facility] ([facility], ) 5'1" Body weight 165.00 [lb_av] 165.00 [lb_av] MEDEN T ([facility]) Body weight 165.00 [lb_av] 165.00 [lb_av] ABBY Vargas ([facility], )
[2021-02-14] MEDS ORDERED: LIDOCAINE 2% 100MG/5ML SDV (FOR ANES.) As Ordered ONE (11:26)
[2021-02-14] MEDS ORDERED: propofoL 200 MG/20 ML VIAL As Ordered ONE (11:26)
--- NOTE | 2021-02-14 12:16 | ROOR ---
Patient Name: Delaney Soria Procedure Date: 02/14/2021 11:41 AM Date of : 1980 Age: 40 Room: [facility] Gender: Female Note Status: Finalized Procedure: Colonoscopy Indications: High risk colon cancer surveillance: Crohn's disease small intestine Providers: Rell Meraz MD Referring MD: RAFI MENDOZA MD Requesting Provider: Medicines: Monitored Anesthesia Care Complications: No immediate complications. Procedure: Pre-Anesthesia Assessment: - The heart rate, respiratory rate, oxygen saturations, blood pressure, adequacy of pulmonary ventilation, and response to care were monitored throughout the procedure. The Colonoscope was introduced through the anus and advanced to 15 cm into the ileum. The colonoscopy was performed without difficulty. The patient tolerated the procedure well. The quality of the bowel preparation was good. Findings: The perianal and digital rectal examinations were normal. The terminal ileum contained a single aphtha. This was biopsied with a cold forceps for histology. The remainder of the exam in the terminal ileum was normal. The colon (entire examined portion) appeared normal. Internal hemorrhoids were found during retroflexion. The hemorrhoids were moderate. Biopsies were taken with a cold forceps in the entire colon and in the terminal ileum for histology. Impression: - One single tiny (<2mm) aphtous erosion in the 15 cm terminal ileum evaluated. Biopsied. - The rest of the terminal ileum up to 15 cm and the entire colon is normal. - Internal hemorrhoids. - Biopsies were taken with a cold forceps in the entire colon and in the terminal ileum for histology. Recommendation: - Pt may possibly have crohns disease, however the <1-2 mm aphuos erosion terminal ileum, and her negative CT enterography are suggestive of only minimal disease activity at best. I would favor no treatment at this time. Observe. - Telephone endoscopist for pathology results in 2 weeks. - Return to my office in 1 year. (or sooner prn) Procedure Code(s): --- Professional --- 13908, Colonoscopy, flexible; with biopsy, single or multiple Diagnosis Code(s): --- Professional --- K64.8, Other hemorrhoids K63.89, Other specified diseases of intestine K50.00, Crohn's disease of small intestine without complications CPT copyright 2019 [employer]. All rights reserved. The codes documented in this report are preliminary and upon metal box maker review may be revised to meet current compliance requirements. Rell Meraz MD Rell Meraz MD 02/14/2021 12:15:46 PM Electronically signed by Rell Meraz MD Number of Addenda: 0 Note Initiated On: 02/14/2021 11:41 AM Estimated Blood Loss: Estimated blood loss: none.
[2021-02-14 12:20] VITALS: BP 110/68
== END 2021-02-14 12:43 | disposition home or self-care (01) ==
LOC: M OPP 10:24
PROVIDERS: ATTEND Internal Medicine Gastroenterology
DX: Z12.11 Encounter for screening for malignant neoplasm of colon (principal); Z80.0 Family history of malignant neoplasm of digestive organs; K50.00 Crohn's disease of small intestine without complications; K63.89 Other specified diseases of intestine; K64.8 Other hemorrhoids; Z79.899 Other long term (current) drug therapy; Z88.8 Allergy status to other drugs, medicaments and biological substances

== ENCOUNTER → 2022-01-14 | Outpatient (CLI) | payer BC, OTHER ==
[~2022-01-14] MED LIST changes: -D31000TA2 PO; -NS 1,000 ML IV ONE; +VITA100093 PO
== END ==
LOC: M WHC 16:45
PROVIDERS: ATTEND Obstetrics & Gynecology
DX: Z12.31 Encounter for screening mammogram for malignant neoplasm of breast (principal)

== ENCOUNTER → 2022-04-19 | Outpatient (CLI) | payer BC, OTHER ==
[~2022-04-19] MED LIST changes: +ACET-1349 PO; +ALBU8.5H; +CLAR10CA3 PO; +DEBL1TAB
== END ==
LOC: M LABSMTC 11:03
PROVIDERS: ATTEND Anesthesiology
DX: Z01.812 Encounter for preprocedural laboratory examination (principal); Z20.822 Contact with and (suspected) exposure to COVID-19

== ENCOUNTER 2022-04-22 10:49 | Day surgery (SDC) | payer BC, OTHER ==
[~2022-04-22] VITALS: Ht 154.9 cm; Wt 83.9 kg
[~2022-04-22 10:49] MED LIST changes: +ACETAMINOPHEN *IV* 1,000 MG IV ONE; +LR 1,000 ML IV SCH
[2022-04-22] MEDS ORDERED: SCOPOLAMINE 1MG TRANSDERMAL PATCH TOP ONE (12:00)
[2022-04-22 12:02] LABS: HEMOGLOBIN 14.6 g/dl (12.0-15.5); MEAN CORPUSCULAR HEMOGLOBIN 31.9 pg (27.0-33.0); MEAN CORPUSCULAR HGB CONC 34.8 g/dl (32.0-36.5); MEAN CORPUSCULAR VOLUME 91.9 fl (80.0-96.0); PLATELET COUNT, AUTOMATED 254 10^3/uL (150-450); RED BLOOD COUNT 4.57 10^6/uL (4.00-5.40); WHITE BLOOD COUNT 6.5 10^3/uL (4.0-10.0)
[2022-04-22] MEDS ORDERED: LR 1,000 ML IV SCH ×2 (12:05→14:55)
[2022-04-22] MEDS ORDERED: fentaNYL 100 MCG/2 ML INJECTION As Ordered ONE (12:22)
[2022-04-22] MEDS ORDERED: MIDAZOLAM INJ 2MG/2ML VIAL As Ordered ONE (12:22)
[2022-04-22] MEDS ORDERED: propofoL 200 MG/20 ML VIAL As Ordered ONE (12:22)
[2022-04-22] MEDS ORDERED: LIDOCAINE 2% 100MG/5ML SDV (FOR ANES.) As Ordered ONE (12:22)
[2022-04-22] MEDS ORDERED: METOCLOPRAMIDE INJ 10MG/2ML VIAL As Ordered ONE (14:38)
[2022-04-22] MEDS ORDERED: KETOROLAC 60MG 2ML VIAL As Ordered ONE (14:38)
[2022-04-22] MEDS ORDERED: ONDANSETRON 4MG 2ML VIAL As Ordered ONE (14:38)
[2022-04-22] MEDS ORDERED: ONDANSETRON 4MG 2ML VIAL IV PRN (14:55)
[2022-04-22] MEDS ORDERED: oxyCODONE 5MG TAB PO PRN (14:55)
[2022-04-22] MEDS ORDERED: fentaNYL 100 MCG/2 ML INJECTION IV PRN (14:55)
[2022-04-22] MEDS ORDERED: HYDROMORPHONE HCL 0.5 MG/ 0.5 ML SYRINGE IV PRN (14:55)
[2022-04-22] MEDS ORDERED: ACETAMINOPHEN 1000MG 100ML IV BAG As Ordered ONE (15:01)
[2022-04-22 16:50] VITALS: BP 127/74
== END 2022-04-22 16:50 | disposition home or self-care (01) ==
LOC: M SDC 10:49
PROVIDERS: ATTEND Obstetrics & Gynecology
DX: N84.0 Polyp of corpus uteri (principal); N85.8 Other specified noninflammatory disorders of uterus; E03.9 Hypothyroidism, unspecified; K50.90 Crohn's disease, unspecified, without complications; Z79.899 Other long term (current) drug therapy
CPT/HCPCS: 36415; 58558; 81025; 85027; 86850; 86900; 86901; 88305; J0131; J1100; J1885; J2250; J2405; J2765; J3010

== ENCOUNTER → 2022-08-21 | Outpatient (CLI) | payer BC, OTHER ==
[~2022-08-21] MED LIST changes: -ACETAMINOPHEN *IV* 1,000 MG IV ONE; -LR 1,000 ML IV SCH
[2022-08-21 12:52] LABS: HEMATOCRIT 43.6 % (36.0-47.0); HEMOGLOBIN 14.8 g/dl (12.0-15.5); MEAN CORPUSCULAR HEMOGLOBIN 32.1 pg (27.0-33.0); MEAN CORPUSCULAR HGB CONC 33.9 g/dl (32.0-36.5); MEAN CORPUSCULAR VOLUME 94.6 fl (80.0-96.0); PLATELET COUNT, AUTOMATED 279 10^3/uL (150-450); RED BLOOD COUNT 4.61 10^6/uL (4.00-5.40); WHITE BLOOD COUNT 7.1 10^3/uL (4.0-10.0)
== END ==
LOC: M WUC 10:45
PROVIDERS: ATTEND Internal Medicine
DX: E03.9 Hypothyroidism, unspecified (principal); D51.9 Vitamin B12 deficiency anemia, unspecified

== ENCOUNTER → 2023-02-03 | Outpatient (CLI) | payer BC, OTHER | LOC: M WHC 09:53 | PROVIDERS: ATTEND Nurse Practitioner Family | DX: Z12.31 Encounter for screening mammogram for malignant neoplasm of breast (principal) ==

== ENCOUNTER → 2023-02-03 | Outpatient (REF) | payer BC, OTHER | LOC: M SFHCWAGY 15:34 | PROVIDERS: ATTEND Nurse Practitioner Family | DX: Z12.4 Encounter for screening for malignant neoplasm of cervix (principal) | CPT/HCPCS: 87624; G0123 ==

== ENCOUNTER 2023-04-28 08:48 | Emergency (ER) | payer BC, OTHER ==
[~2023-04-28] VITALS: Ht 154.9 cm; Wt 83.7 kg
[2023-04-28 10:20] LABS: RSV AMPLIFICATION NEGATIVE (NEGATIVE)
[2023-04-28 10:56] VITALS: BP 138/71; TEMP 97.8; O2SAT 98
== END 2023-04-28 11:13 | disposition home or self-care (01) ==
LOC: M ED 08:48
DX: U07.1 COVID-19 (principal); Z77.098 Contact with and (suspected) exposure to other hazardous, chiefly nonmedicinal, chemicals; E03.9 Hypothyroidism, unspecified

== ENCOUNTER → 2024-02-10 | Outpatient (CLI) | payer BC | LOC: M WHC 14:54 | PROVIDERS: ATTEND Nurse Practitioner Family | DX: Z12.31 Encounter for screening mammogram for malignant neoplasm of breast (principal); R92.313 Mammographic fatty tissue density, bilateral breasts ==

== ENCOUNTER → 2024-02-10 | Outpatient (CLI) | payer BC, OTHER ==
[2024-02-10 18:00] LABS: HEMOGLOBIN A1c 4.8 % (4.0-6.0)
[2024-02-10 18:10] LABS: FREE T4 1.32 NG/DL (0.89-1.76); THYROID STIMULATING HORMONE 2.984 uIU/ML (0.55-4.78)
== END ==
LOC: M PLALAB 16:09
PROVIDERS: ATTEND Nurse Practitioner Family
DX: R63.5 Abnormal weight gain (principal)

== ENCOUNTER → 2024-03-24 | Outpatient (CLI) | payer BC, OTHER ==
[2024-03-24 10:42] LABS: BASO # 0.1 10^3/uL (0.0-0.2); BASO % 0.9 % (0.0-1.0); EOS # 0.2 10^3/uL (0.0-0.5); EOS % 2.4 % (0.0-3.0); HEMOGLOBIN 14.7 g/dl (12.0-15.5); LYMPH # 2.4 10^3/uL (1.5-5.0); LYMPH % 34.7 % (24.0-44.0); MEAN CORPUSCULAR HEMOGLOBIN 32.1 pg (27.0-33.0); MEAN CORPUSCULAR HGB CONC 33.4 g/dl (32.0-36.5); MEAN CORPUSCULAR VOLUME 96.1 fl (80.0-96.0); MONO # 0.7 10^3/uL (0.0-0.8); MONO % 9.3 % (2.0-8.0); NEUTROPHILS # 3.6 10^3/uL (1.5-8.5); PLATELET COUNT, AUTOMATED 282 10^3/uL (150-450); RED BLOOD COUNT 4.58 10^6/uL (4.00-5.40)
[2024-03-24 10:49] LABS: ALBUMIN 3.7 G/DL (3.2-5.2); ALKALINE PHOSPHATASE 72 U/L (35-104); ALT/SGPT 24 U/L (7.0-40); AST/SGOT 19 U/L (<34); BILIRUBIN,TOTAL 0.5 MG/DL (0.3-1.2); BLOOD UREA NITROGEN 15 MG/DL (9-23); CALCIUM LEVEL 8.8 MG/DL (8.5-10.1); CARBON DIOXIDE LEVEL 26 MMOL/L (20-31); CHLORIDE LEVEL 107 MMOL/L (98-107); CREATININE FOR GFR 0.79 MG/DL (0.55-1.30); GLOMERULAR FILTRATION RATE > 60.0 (>58); GLUCOSE, FASTING 83 MG/DL (60-100); POTASSIUM SERUM 4.1 MMOL/L (3.5-5.1); SODIUM LEVEL 142 MMOL/L (136-145); TOTAL PROTEIN 6.8 G/DL (5.7-8.2)
== END ==
LOC: M WUC 08:02
PROVIDERS: ATTEND Internal Medicine
DX: E03.9 Hypothyroidism, unspecified (principal)

== ENCOUNTER → 2025-03-05 | Outpatient (CLI) | payer BC ==
[2025-03-05 18:18] LABS: ALT/SGPT 33 U/L (7.0-40); AST/SGOT 29 U/L (<34); CALCIUM LEVEL 9.2 MG/DL (8.5-10.1); CARBON DIOXIDE LEVEL 26 MMOL/L (20-31); CHLORIDE LEVEL 103 MMOL/L (98-107); CREATININE FOR GFR 0.82 MG/DL (0.55-1.30); GLOMERULAR FILTRATION RATE > 90.0 (>58); POTASSIUM SERUM 4.0 MMOL/L (3.5-5.1); SODIUM LEVEL 138 MMOL/L (136-145)
[2025-03-05 18:22] LABS: BASO # 0.1 10^3/uL (0.0-0.2); BASO % 0.7 % (0.0-1.0); EOS # 0.1 10^3/uL (0.0-0.5); EOS % 1.2 % (0.0-3.0); LYMPH # 2.8 10^3/uL (1.5-5.0); LYMPH % 34.2 % (24.0-44.0); MONO # 0.6 10^3/uL (0.0-0.8); MONO % 7.8 % (2.0-8.0); NEUTROPHILS # 4.5 10^3/uL (1.5-8.5); NEUTROPHILS % 55.6 % (36.0-66.0); PLATELET COUNT, AUTOMATED 297 10^3/uL (150-450)
== END ==
LOC: M WUC 13:08
PROVIDERS: ATTEND Internal Medicine
DX: E03.9 Hypothyroidism, unspecified (principal)